=== PATIENT | female | born 1960 | race Caucasian/White ===

== ENCOUNTER 2020-10-08 12:26 | Outpatient (NON) | payer OTHER, SELFPAY ==
[2020-10-08 23:32] LABS: SARS-CoV-2 RNA PCR Negative
== END 2020-10-08 12:27 ==
LOC: ANHCOVIDDT 12:28
PROVIDERS: Physician Assistant; PCP Family Medicine; Visit Provider Family Medicine
DX: R06.02 Shortness of breath (principal); Z20.828 Contact with and (suspected) exposure to other viral communicable diseases
CPT/HCPCS: 87635; C9803; U0003

== ENCOUNTER → 2020-10-22 10:16 | Outpatient (CLI) | payer OTHER, SELFPAY ==
--- NOTE | ~2020-10-22 | XR_ITS ---
EXAMINATION: XR chest 2V DATE: 10/22/2020 10:40 INDICATION: Pneumonia, unspecified organism. TECHNIQUE: Frontal and lateral views of the chest were obtained. COMPARISON: Chest 2 views 06/22/2019, CT abdomen and pelvis 11/16/2018 FINDINGS: The chest demonstrates clear lungs without pneumonia, pleural effusion, or pneumothorax. Th e heart size is normal. IMPRESSION: 1. No acute cardiopulmonary disease. Reviewed, dictated and finalized at location A. R INSTALLER
== END ==
PROVIDERS: PCP Family Medicine; Visit Provider Nurse Practitioner Family
DX: J18.9 Pneumonia, unspecified organism (principal); R50.9 Fever, unspecified
CPT/HCPCS: 71046

== ENCOUNTER 2021-06-16 09:26 | Day surgery (SDC) | payer BC, SELFPAY ==
[2021-06-11 13:50] VITALS: BMI 26.5
[2021-06-16 09:46] VITALS: BP 149/74; PULSE 78; RESP 16; TEMP 36.1; O2SAT 97; BMI 25.8
--- NOTE | 2021-06-16 09:48 | WPDANESEPPF ---
Anes - Initial Pre Proc Eval Procedure: Operation Date: 06/16/21 11:45 Proposed Procedures p Esophagogastroduodenoscopy & Screening Colonoscopy - Demetrius Stevenson MD Date/Time: 06/16/21 09:48 Surgeon: Demetrius Stevenson MD Pre Op Diagnosis: family hx of colon ca, nausea, neoplasm Patient Data Age: 61 Gender: F Height: 1.6 m Weight: 66.1 kg Last Vital Signs Temp 36.1 C L 06/16/21 09:46 Pulse 78 06/16/21 09:46 Resp 16 06/16/21 09:46 BP 149/74 H 06/16/21 09:46 Pulse Ox 97 06/16/21 09:46 Allergies Allergy/AdvReac Type Severity Reaction Status Date / Time No Known Allergies Allergy Verified 06/16/21 09:37 Home Medications Medication Instructions Recorded Confirmed Type albuterol sulfate 90 mcg/actuation 1 inhalation INHALATION Q4H PRN 02/01/20 06/11/21 Rx aerosol inhaler #6.7 gm cetirizine [Zyrtec] 10 mg PO DAILY 07/11/20 06/11/21 History fluticasone propionate [Flonase 2 spray INTRANASAL DAILY 07/11/20 06/11/21 History Allergy Relief] guaifenesin [Mucinex] 600 mg PO QAM 07/11/20 06/11/21 History omeprazole magnesium [Prilosec] 10 mg PO DAILY 07/11/20 06/11/21 History triamterene-hydrochlorothiazid 1 cap PO DAILY 07/11/20 06/11/21 History aspirin 81 mg tablet,delayed 81 mg PO DAILY #90 tablet 10/10/20 06/11/21 Rx release gabapentin 100 mg capsule 200 mg PO QAM #180 cap 01/16/21 06/11/21 Rx gabapentin 300 mg capsule 300 mg PO .qhs #90 cap 01/16/21 06/11/21 Rx amlodipine 5 mg tablet 5 mg PO DAILY #90 tablet 01/20/21 06/11/21 Rx benzonatate 100 mg capsule 100 mg PO TID PRN #30 cap 02/24/21 06/11/21 Rx montelukast 10 mg tablet 10 mg PO DAILY #90 tablet 03/19/21 06/11/21 Rx umeclidinium 62.5 mcg-vilanterol 1 inh INHALATION DAILY #90 ea 03/27/21 06/11/21 Rx 25 mcg/actuation powdr for inhalation fluoxetine 20 mg capsule 20 mg PO DAILY #90 cap 04/07/21 06/11/21 Rx Patient hx anesthesia problems: none Family hx anesthesia problems: none PMFSH Past Medical History Medical History Tremor Wellness examination Family History Family History Father Hypertension Family history of heart disease in male family member before age 55 Mother Family history of Parkinson's disease Sibling Hypertension Family history of alcoholism Other Family history of arthritis Family history of gout Social History Social History Smoking packs per day: 1 Smoking cigarettes per day: 20.0 Years smoked: 15 Smoking pack-years: 15.00 Smoking status: Former smoker Tobacco type: cigarettes Second hand tobacco smoke exposure: No Smoking end date: 06/01/01 Alcohol intake: current Alcohol use details: social drinker Substance use: current Substance use type: marijuana Other substance usage details: SMOKES A LITTLE EVERY DAY Living arrangements: with family Gender identity (if verbalized by the patient): Female Spiritual care concerns: No Anes - Eval Final PreProcedure Day of Procedure 06/16/21 09:48 Patient weight: overweight Heart: regular rate and rhythm Lungs: clear to auscultation Airway: Mallampati scale class II Neurological: alert and oriented Last oral intake: >/= 8 hours ASA classification: III Emergent: no Anesthetic plan: proceed Anesthesia type and monitoring: general GIVS and standard monitoring Informed Consent: The patient's anesthetic plan and its attendant risks and benefits were discussed with the patient/family/POA. Questions were solicited and answers provided to the satisfaction of the patient/family/POA.
[2021-06-16] MEDS: LACTATED RINGERS 1,000 ML 150 ML IV CONT (10:05)
--- NOTE | 2021-06-16 10:17 | WPDGICN ---
Assessment and Plan Assessment and plan (1) Family history of colon cancer in father: Code(s): Z80.0 - Family history of malignant neoplasm of digestive organs Status: Acute Assessment and Plan: Patient's father has had colon cancer for this reason screening colonoscopy will be performed this report follows separately. Consider follow-up colonoscopy at 5 year intervals. Further recommendations will be given after endoscopy. (2) GERD (gastroesophageal reflux disease): Qualifiers: Esophagitis presence: without esophagitis Qualified Code(s): K21.9 - Gastro-esophageal reflux disease without esophagitis Code(s): K21.9 - Gastro-esophageal reflux disease without esophagitis Status: Acute Assessment and Plan: Patient has chronic GE reflux disease. Currently taking omeprazole 20mg p.o. daily. Plan is for EGD. this report follows separately. Further recommendations will be given after endoscopy. GI Consult Note Consult date/time: 06/16/21 10:17 HPI: Ashlie Donald is a 61 year old female With a history of GE reflux disease. Patient states heartburn has improved on taking Prilosec 20mg p.o. daily. Previously took ranitidine until it was taken off the market. Because of chronic GE reflux disease she presents today for EGD. Patient denies any bleeding. She denies any difficulty swallowing. Additionally it has been sometime since last colonoscopy. Family history is significant her father had colon cancer. Patient reports that her own for weight appetite bowel movements are normal. She denies any bleeding. She presents today for screening colonoscopy as well. Review of Systems Review of Systems: All systems reviewed & are unremarkable except as noted in HPI and below PMFSH Past Medical History Medical History Tremor Wellness examination Family History Family History Father Hypertension Family history of heart disease in male family member before age 55 Mother Family history of Parkinson's disease Sibling Hypertension Family history of alcoholism Other Family history of arthritis Family history of gout Social History Social History Smoking packs per day: 1 Smoking cigarettes per day: 20.0 Years smoked: 15 Smoking pack-years: 15.00 Smoking status: Former smoker Tobacco type: cigarettes Second hand tobacco smoke exposure: No Smoking end date: 06/01/01 Alcohol intake: current Alcohol use details: social drinker Substance use: current Substance use type: marijuana Other substance usage details: SMOKES A LITTLE EVERY DAY Living arrangements: with family Gender identity (if verbalized by the patient): Female Spiritual care concerns: No Meds Home Medications and Allergies Home Medications Medication Instructions Recorded Confirmed Type albuterol sulfate 90 mcg/actuation 1 inhalation INHALATION Q4H PRN 02/01/20 06/11/21 Rx aerosol inhaler #6.7 gm cetirizine [Zyrtec] 10 mg PO DAILY 07/11/20 06/11/21 History fluticasone propionate [Flonase 2 spray INTRANASAL DAILY 07/11/20 06/11/21 History Allergy Relief] guaifenesin [Mucinex] 600 mg PO QAM 07/11/20 06/11/21 History omeprazole magnesium [Prilosec] 10 mg PO DAILY 07/11/20 06/11/21 History triamterene-hydrochlorothiazid 1 cap PO DAILY 07/11/20 06/11/21 History aspirin 81 mg tablet,delayed 81 mg PO DAILY #90 tablet 10/10/20 06/11/21 Rx release gabapentin 100 mg capsule 200 mg PO QAM #180 cap 01/16/21 06/11/21 Rx gabapentin 300 mg capsule 300 mg PO .qhs #90 cap 01/16/21 06/11/21 Rx amlodipine 5 mg tablet 5 mg PO DAILY #90 tablet 01/20/21 06/11/21 Rx benzonatate 100 mg capsule 100 mg PO TID PRN #30 cap 02/24/21 06/11/21 Rx montelukast 10 mg tablet 10 mg PO DAILY #90 tablet 03/19/21 06/11/21 Rx umecli
[2021-06-16] MEDS: SIMETHICONE ORAL SUSPENSION 20 MG/0.3 ML 30 ML BOTTLE 0.6 ML IRRIGATION (10:55)
--- NOTE | 2021-06-16 10:58 | SUR.OPER ---
EGD START 1032, END 1034 COLONOSCOPY START 103, END 105
[2021-06-16 11:04] VITALS: BP 100/59; PULSE 75; RESP 21; O2SAT 94
[2021-06-16 11:14] VITALS: BP 118/69; PULSE 61; RESP 15; O2SAT 100
[2021-06-16 11:24] VITALS: BP 126/70; PULSE 60; RESP 18; O2SAT 98
== END 2021-06-16 11:33 | disposition home or self-care (01) ==
PROVIDERS: PCP Family Medicine; Visit Provider Internal Medicine Gastroenterology
PROC: 0DJ08ZZ Inspection of Upper Intestinal Tract, Via Natural or Artificial Opening Endoscopic (ICD-10-PCS; CPT 43235; principal; 2021-06-16 11:45)
DX: Z12.11 Encounter for screening for malignant neoplasm of colon (principal); Z80.0 Family history of malignant neoplasm of digestive organs; Q39.4 Esophageal web; K21.9 Gastro-esophageal reflux disease without esophagitis; K57.30 Diverticulosis of large intestine without perforation or abscess without bleeding; K64.8 Other hemorrhoids; R25.1 Tremor, unspecified; Z87.891 Personal history of nicotine dependence
CPT/HCPCS: 45378; 43235; 43450; J2704; J7120

== ENCOUNTER 2021-08-25 08:07 | Outpatient (CLI) | payer BC, SELFPAY ==
--- NOTE | 2021-08-25 11:36 | WPDPFTINT ---
PFT Procedure Performed PFT Procedure Performed Spirometry with Pre/Post Bronchodilator Plethysmography (Lung Vol) Diffusing Cap (DLCO) Flow Vol Loop PFT Interpretation Lung volumes were measured with the body plethysmography method. The lung volumes are unremarkable. Spirometry showed normal expiratory flow rates and a normal FEV1 to FVC ratio of 74%. Following administration of a bronchodilator, there was no significant increase in the expiratory flow rates. Lung diffusion capacity is mildly reduced at 64% predicted. The flow volume loop is unremarkable. Impression: Spirometry, lung volumes within the normal range. Mild reduction in lung diffusion capacity.
== END 2021-08-25 08:08 | disposition home or self-care (01) ==
PROVIDERS: PCP Family Medicine; Visit Provider Internal Medicine Pulmonary Disease
DX: R06.00 Dyspnea, unspecified (principal)
CPT/HCPCS: 94060; 94726; 94729

== ENCOUNTER 2021-10-21 11:09 | Outpatient (CLI) | payer BC, SELFPAY ==
--- NOTE | ~2021-10-21 | CT_ITS ---
EXAMINATION: CT diagnostic chest wo con DATE: 10/21/2021 11:32 INDICATION: Cough TECHNIQUE: Computed tomography (CT) of the chest was performed without intravenous contrast. Automate d exposure control and iterative reconstruction technique were employed. Exam dose: 142.30 mGy-cm to jesus exam DLP. COMPARISON: 10/22/2020 2 view chest FINDINGS: There are bilateral foramen of [place]dale[place] hernias containing fat and a small portion of the posterior aspect of the upper pole of each kidney. Normal heart size. No pericardial effusion. No thoracic aortic aneurysm there is some aortic valve ca lcification. No hilar or mediastinal mass lesion or lymphadenopathy. The tracheobronchial tree is patent without apparent endobronchial mass lesion or occlusion. There is minimal discoid atelectasis or scarring at the lung bases. No pulmonary infiltrate or consol idation or suspicious pulmonary mass lesion is detected. Small sliding hiatal hernia. Status post cholecystectomy. No adrenal mass lesion. No suspicious osteolytic or osteoblastic lesions are noted. IMPRESSION: Patent tracheobronchial tree Small sliding hiatal hernia Bilateral foramen of [place]dalek hernias containing fat and a small portion of the upper pole of each k idney Status post cholecystectomy Reviewed, dictated and finalized at Location A. Reviewed, dictated and finalized at location B. RLEADER IMPRESSION: Patent tracheobronchial tree Small sliding hiatal hernia Bilateral foramen of Bochdalek hernias containing fat and a small portion of th e upper pole of each kidney Status post cholecystectomy
== END 2021-10-21 11:10 | disposition home or self-care (01) ==
PROVIDERS: PCP Family Medicine; Visit Provider Internal Medicine Pulmonary Disease
DX: J45.909 Unspecified asthma, uncomplicated (principal); R05.9 Cough, unspecified; K44.9 Diaphragmatic hernia without obstruction or gangrene; Z90.49 Acquired absence of other specified parts of digestive tract
CPT/HCPCS: 71250

== ENCOUNTER 2021-12-23 14:25 | Outpatient (CLI) | payer BC, SELFPAY ==
--- NOTE | ~2021-12-23 | MM_ITS ---
EXAMINATION: MM screening [facility] BI w mike HISTORY: Screening mammogram TECHNIQUE: Craniocaudal and mediolateral oblique 3-D tomosynthesis images were obtained and synthetic 2-D images were generated. CAD analysis was submitted and interpreted. COMPARISON: 11/09/2018, 07/23/2017, 06/17/2016 bilateral digital screening mammogram examinations BREAST PARENCHYMAL COMPOSITION: There are scattered areas of fibroglandular density. FINDINGS: There is no evidence of suspicious mass, calcification, or architectural distortion to sugg est malignancy in either breast. There has been no suspicious interval change. IMPRESSION: 1. No mammographic evidence of malignancy. 2. Recommend routine screening mammography in one year. BI-RADS Category 1: Negative Reviewed, dictated and finalized at location A. URCE COORDINATOR
== END 2021-12-23 14:26 | disposition home or self-care (01) ==
LOC: ANHIMG 14:26
PROVIDERS: PCP Family Medicine; Visit Provider Physician Assistant
DX: Z12.31 Encounter for screening mammogram for malignant neoplasm of breast (principal)
CPT/HCPCS: 77063; 77067

== ENCOUNTER 2022-01-14 13:11 | Emergency (ER) | payer BC, SELFPAY ==
[2022-01-14] VITALS (38 sets, daily range): BP systolic 102–137; BP diastolic 46–110; PULSE 57–82; RESP 11–24; TEMP 36.4–37; O2SAT 93–100
--- NOTE | ~2022-01-14 | XR_ITS ---
EXAMINATION: XR foot LT min 3V DATE: 01/14/2022 13:56 INDICATION: Left foot injury. TECHNIQUE: 4 views of left foot were obtained. COMPARISON: Left ankle radiographs 01/14/2022 FINDINGS: Again seen is a trimalleolar ankle fracture dislocation with posterior dislocation of talus respect to the main component of tibial plafond. There are changes of bunionectomy with screws in fi rst metatarsal and first proximal phalanx. There are screws in the heads of second and third metatars als. There is moderate osteoarthritis of first metatarsophalangeal joint and mild osteoarthritis of s ome of the interphalangeal joints. There is an enthesophyte at plantar aspect of calcaneal tuberosity . IMPRESSION: 1. Trimalleolar ankle fracture dislocation. 2. Polyarticular osteoarthritis. Reviewed, dictated and finalized at location A.
--- NOTE | ~2022-01-14 | XR_ITS ---
EXAMINATION: XR ankle LT min 3V DATE: 01/14/2022 13:44 INDICATION: Left ankle injury. TECHNIQUE: 4 views of left ankle were obtained. COMPARISON: None. FINDINGS: There is an oblique fracture of distal fibula with medial aspect of the fracture line 1.7 c m proximal to the level of the tibial plafond. The distal fracture fragment demonstrates 34 degrees p osterior angulation. There is a displaced fracture of posterior malleolus. There is posterior disloca tion of talar dome with respect to the main component of tibial plafond. There is an oblique fracture of medial malleolus. The distal fracture fragment demonstrates posterior angulation. There is mild o steoarthritis of talonavicular joint. There is screw fixation of first metatarsal, first proximal pha lanx, and second and third metatarsals. IMPRESSION: 1. Trimalleolar ankle fracture dislocation. Reviewed, dictated and finalized at location A.
--- NOTE | ~2022-01-14 | XR_ITS ---
EXAMINATION: XR ankle LT 2V DATE: 01/14/2022 15:21 INDICATION: Left ankle fracture status post reduction. TECHNIQUE: 2 views of left ankle were obtained. COMPARISON: Left ankle radiographs 01/14/2022 FINDINGS: There is an oblique fracture of distal fibula with medial aspect of the fracture line 12 mm proximal to the level of the tibial plafond. The distal fracture fragment demonstrates 2 mm posterol ateral displacement. There is a comminuted fracture of medial malleolus. The main distal fracture fra gment demonstrates 2 mm medial displacement. There is no visible fracture of the posterior malleolus. There is mild osteoarthritis of first talonavicular joint. There is screw fixation of first metatars al, first proximal phalanx, and second and third metatarsals. There are enthesophytes at the posterio r and plantar aspects of calcaneal tuberosity. Cast material is noted. IMPRESSION: 1. Bimalleolar ankle fracture with improvement in alignment. Reviewed, dictated and finalized at location A.
--- NOTE | 2022-01-14 13:57 | ED.LOWEXIN ---
HPI - Extremity Injury (Lower) General Chief Complaint: Extremity Injury, Lower <Sunday Bishop APRN - Last Filed: 01/14/22 16:37> Stated Complaint: left ankle injury <Sunday Bishop APRN - Last Filed: 01/14/22 16:37> Time Seen by Provider: 01/14/22 13:26 <Sunday Bishop CASE MANAGEMENT ASSISTANT - Last Filed: 01/14/22 16:37> History of Present Illness HPI Narrative: 61-year-old female presents the emergency room complaints of left ankle pain. Patient states that she slipped and fell down a couple of stairs prior to arrival. Patient noted an obvious bony abnormality to her left ankle. Unable to ambulate. <Sunday Bishop APRN - Last Filed: 01/14/22 16:37> Related Data Home Medications: Home Medications Medication Instructions Recorded Confirmed cetirizine [Zyrtec] 10 mg PO DAILY 07/11/20 01/01/22 fluticasone propionate [Flonase 2 spray INTRANASAL DAILY 07/11/20 01/01/22 Allergy Relief] guaifenesin [Mucinex] 600 mg PO QAM 07/11/20 01/01/22 denosumab 60 mg/mL subcutaneous 60 mg SUBCUT [id number] 07/29/21 01/01/22 syringe <Sunday Bishop, CASE MANAGEMENT ASSISTANT - Last Filed: 01/14/22 16:37> Allergies/Adverse Reactions: Allergies Allergy/AdvReac Type Severity Reaction Status Date / Time No Known Allergies Allergy Verified 01/14/22 13:20 <Sunday Bishop APRN - Last Filed: 01/14/22 16:37> Review of Systems Review of Systems: CONSTITUTIONAL: Denies fever, chills, or sweats. EYES: Denies visual changes, redness, or discharge. ENT: Denies rhinorrhea, congestion, sore throat, or otalgia. CARDIOVASCULAR: Denies chest pain, palpitations, or edema. RESPIRATORY: Denies cough or dyspnea. GASTROINTESTINAL: Denies abdominal pain, nausea, vomiting, or diarrhea. GENITOURINARY: Denies dysuria or hematuria. SKIN: Denies rash or itching. MUSCULOSKELETAL: Reports left ankle pain NEUROLOGIC: Denies headache, numbness, dizziness, or weakness. PSYCHIATRIC: Denies anxiety or depression. <Sunday Bishop APRN - Last Filed: 01/14/22 16:37> PMFSH Past Medical History Medical History: Medical History Tremor Wellness examination <Sunday Bishop APRN - Last Filed: 01/14/22 16:37> Family History Family History: Family History Father Hypertension Family history of heart disease in male family member before age 55 Mother Family history of Parkinson's disease Sibling Hypertension Family history of alcoholism Other Family history of arthritis Family history of gout <Sunday Bishop APRN - Last Filed: 01/14/22 16:37> Social History Social History: Social History Smoking packs per day: 1 Smoking cigarettes per day: 20.0 Years smoked: 20 Smoking pack-years: 20.00 Smoking status: Former smoker Tobacco type: cigarettes Second hand tobacco smoke exposure: No Smoking end date: 06/01/01 Alcohol intake: current Alcohol use details: social drinker Substance use: current Substance use type: marijuana Other substance usage details: SMOKES A LITTLE EVERY DAY Gender identity (if verbalized by the patient): Female Sexual Orientation (if Verbalized by the Patient): Straight or Heterosexual Spiritual care concerns: No <Sunday Bishop APRN - Last Filed: 01/14/22 16:37> Exam Narrative: GENERAL: Well-appearing, well-nourished, and in no acute distress. HEAD: Normocephalic, atraumatic. EYES: PERRLA and EOMI. ENT: Nares clear, no rhinorrhea or epistaxis. Mucous membranes moist. NECK: Supple. No adenopathy or masses. No carotid bruits or JVD CHEST: Clear to auscultation. No respiratory distress. No wheezes rales or rhonchi HEART: Regular rate and rhythm. No murmur heard. Normal peripheral pulses. ABDOMEN: Soft, nontender, nondistended, normal active bowel sounds. EXTREMITIES: Normal range of motion.
[2022-01-14] MEDS: MORPHINE SULFATE (*CRX) 4 MG/ML INJ IV PUSH (14:26)
[2022-01-14] MEDS: ONDANSETRON INJ 4 MG/2 ML VIAL IV PUSH (14:26)
[2022-01-14 14:41] LABS: Basophils Absolute Auto 0.1 K/mm3 (0.0-0.1); Basophils Percent Auto 0.6 % (0.2-1.2); Eosinophils Absolute Auto 0.2 K/mm3 (0-0.3); Eosinophils Percent Auto 2.5 % (0-4.4); Hematocrit 40.1 % (37.0-47.0); Hemoglobin 13.3 g/dL (12.0-15.0); Immature Granulocyte Absolute 0.03 K/mm3 (0.00-0.031); Immature Granulocyte Percent A 0.3 % (0-0.5); Lymphocytes Absolute Auto 2.05 K/mm3 (0.9-3.2); Mean Corpuscular HGB Conc 33.2 g/dl (32-36); Mean Corpuscular Hemoglobin 30.2 pg (26-34); Mean Corpuscular Volume 90.9 fl (80-100); Mean Platelet Volume 9.2 fl (7.4-10.4); Monocytes Absolute Auto 0.7 K/mm3 (0.1-0.6); Monocytes Percent Auto 8.2 % (2.6-8.5); Neutrophils Absolute Auto 5.9 K/mm3 (1.3-6.7); Neutrophils Percent Auto 65.4 % (45.5-73.1); Platelet Count Result 342 k/mm3 (150-375); Red Blood Count 4.41 M/mm3 (4.2-5.4); Red Cell Distribution Width 13.5 % (11.5-14.5); White Blood Count 8.9 K/mm3 (4.5-10.0)
[2022-01-14 14:50] LABS: Alanine Aminotransferase 16 U/L (4-35); Albumin Level 4.2 g/dL (3.5-5.1); Alkaline Phosphatase 105 U/L (38-126); Anion Gap 4 mmol/L (8-16); Aspartate Amino Transferase 29 U/L (14-36); Bilirubin,Total 0.5 mg/dL (0.2-1.3); Blood Urea Nitrogen 20 mg/dL (7-17); Calcium 9.8 mg/dL (8.4-10.2); Carbon Dioxide 29 mmol/L (22-30); Chloride 105 mmol/L (98-107); Estimated CRCL calculation 59 ml/min; Estimated Glomerular Filt Rate > 60; Glucose 100 mg/dL (65-110); INR 0.9; Partial Thromboplastin Time 24.3 SECONDS (22.3-36.8); Potassium 4.1 mmol/L (3.4-5.0); Prothrombin Time 11.9 Seconds (11.1-14.7); Sodium 138 mmol/L (137-145)
--- NOTE | 2022-01-14 15:05 | PC.NURSE ---
[address] Emma Portillo FOURTH MATE at bedside all equipment at bedside 1506 Dr carter adminstered 60mg of propofol 1507 Dr Carter gave 20mg of propofol. 1510 Pt O2 beggining to dropped which reequired bagging for approx 1 minute 1512 Pt procedure finished Pt beggining to awake from sedation.
[2022-01-14] MEDS: PROPOFOL IV EMULSION 200 MG/20 ML VIAL (15:06)
[2022-01-14] MEDS: SODIUM CHLORIDE 0.9% IV 1,000 ML 999 ML (15:31)
--- NOTE | 2022-01-14 18:38 | PC.NURSE ---
called kapil for travis 1836, eta now 1999.
== END 2022-01-14 19:36 | disposition short-term general hospital (02) ==
PROVIDERS: Emergency Provider Nurse Practitioner Family; PCP Family Medicine
DX: S82.842A Displaced bimalleolar fracture of left lower leg, initial encounter for closed fracture (principal); W10.9XXA Fall (on) (from) unspecified stairs and steps, initial encounter
CPT/HCPCS: 27818; 36415; 73600; 73610; 73630; 80053; 85025; 85610; 85730; 86850; 86900; 86901; 96374; 96375; 99285; J2270; J2405; J2704; J7030

== ENCOUNTER 2022-01-30 09:57 | Outpatient (CLI) | payer BC, SELFPAY ==
--- NOTE | ~2022-01-30 | DEXA_ITS ---
Bone Density Report Name: DEBBI LIRIANO Age: 61 Sex: Female Ethnicity: White Date of : 1960 Indication: osteopenia; monitoring treatment; height loss; inflammatory bowel disease; prior fracture; asthma or emphysema; postmenopausal Referring Provider: NIKI PALACIO Study: Bone densitometry was performed. Exam Date: January 30, 2022 Accession number: [id number] Bone Density: Region BMD T-score Z-score Classification AP Spine (L1, L2) 0.856 -1.1 0.4 Osteopenia Femoral Neck (Left) 0.538 -2.8 -1.4 Osteoporosis Total Hip (Left) 0.740 -1.7 -0.5 Osteopenia Total Hip Bilateral Avg 0.752 -1.6 -0.4 Osteopenia Femoral Neck (Right) 0.571 -2.5 -1.1 Osteoporosis Total Hip (Right) 0.763 -1.5 -0.3 Osteopenia World Health Organization criteria for BMD impression classify patients as: Normal (T-score at or above -1.0), Osteopenia (T-score between -1.0 and -2.5), or Osteoporosis (T-score at or below -2.5). 10-year Fracture Risk: FRAX not reported because: Some T-score for Spine Total or Hip Total or Femoral Neck at or below -2.5 Treated for osteoporosis Previous Exams: Region Exam Age BMD T-score BMD Change BMD Change Date g/cm2 vs Baseline vs Previous AP Spine(L1, L2) 01/30/2022 61 0.856 -1.1 0.166(24.0%)# 0.031(3.8%)# 11/08/2013 53 0.825 -1.4 0.134(19.4%)# 0.077(10.2%)# 02/23/2011 50 0.748 -2.1 0.058(8.3%)* 0.058(8.3%)* 10/16/2008 48 0.690 -2.6 Total Hip(Left) 01/30/2022 61 0.740 -1.7 0.000(0.0%)# -0.057(-7.1%)# 11/08/2013 53 0.797 -1.2 0.057(7.7%)# 0.025(3.2%)# 02/23/2011 50 0.772 -1.4 0.032(4.4%)* 0.032(4.4%)* 10/16/2008 48 0.740 -1.7 Total Hip(Right) 01/30/2022 61 0.763 -1.5 0.025(3.4%)# -0.049(-6.1%)# 11/08/2013 53 0.812 -1.1 0.075(10.1%)# 0.019(2.4%)# 02/23/2011 50 0.793 -1.2 0.056(7.6%)* 0.056(7.6%)* 10/16/2008 48 0.737 -1.7 *Denotes significance at 95% confidence level, LSC for AP Spine = 0.022 g/cm2, LSC for Total Hip = 0.027 g/cm2 Clinical Information Provided by Patient: Has had a low trauma fracture Is being treated for osteoporosis Has used the following medications: Prolia (i.e. denosumab), Vitamin D, Calcium Has the following medical conditions: Asthma or Emphysema, Inflammatory bowel diseases Patient maximum height was 63.5 Menopause Age: 51 No regular weight bearing exercise Drinks caffeinated beverages Onset of menses at age 12 Number of children 1
== END 2022-01-30 09:58 | disposition home or self-care (01) ==
LOC: ANHIMG 09:58
PROVIDERS: PCP Family Medicine; Visit Provider Physician Assistant
DX: M81.0 Age-related osteoporosis without current pathological fracture (principal); M85.88 Other specified disorders of bone density and structure, other site; M85.852 Other specified disorders of bone density and structure, left thigh; M85.851 Other specified disorders of bone density and structure, right thigh
CPT/HCPCS: 77080

== ENCOUNTER 2022-12-07 12:44 | Outpatient (CLI) | payer BC, SELFPAY ==
[2022-12-07 14:53] LABS: Influenza A QL RT-PCR Negative (Negative); Influenza B QL RT-PCR Negative (Negative); SARS-CoV-2 RNA PCR Negative
== END 2022-12-07 12:45 | disposition home or self-care (01) ==
LOC: ANHLAB 12:45
PROVIDERS: PCP Family Medicine; Visit Provider Physician Assistant
DX: R50.9 Fever, unspecified (principal); Z20.822 Contact with and (suspected) exposure to COVID-19
CPT/HCPCS: 87636

== ENCOUNTER → 2023-01-11 12:44 | Outpatient (CLI) | payer BC, SELFPAY ==
--- NOTE | ~2023-01-11 | XR_ITS ---
EXAMINATION: XR chest 2V Exam Date/Time: 01/11/2023 12:49 CDT HISTORY: Unspecified asthma, uncomplicated; low O2 sat Comparison: 10/22/2020. RESULT: Lines, tubes, and devices: Cholecystectomy clips. Lungs and pleura: Prominent pericardial fat pad. Chronic posterior costophrenic angle blunting. Othe rwise clear. Cardiomediastinal silhouette: Stable. Other: No acute osseous or upper abdominal finding. IMPRESSION: No acute cardiopulmonary process. Reviewed, dictated and finalized at location K.
== END ==
PROVIDERS: PCP Family Medicine; Visit Provider Physician Assistant
DX: J45.909 Unspecified asthma, uncomplicated (principal)
CPT/HCPCS: 71046

== ENCOUNTER → 2023-03-24 12:49 | Outpatient (CLI) | payer BC, SELFPAY ==
--- NOTE | ~2023-03-24 | MM_ITS ---
EXAMINATION: MM screening [facility] BI w mike HISTORY: Screening mammogram TECHNIQUE: Craniocaudal and mediolateral oblique 3-D tomosynthesis images were obtained and synthetic 2-D images were generated. CAD analysis was submitted and interpreted. COMPARISON: 12/23/2021, 11/19/2018, 07/23/2017 BREAST PARENCHYMAL COMPOSITION: There are scattered areas of fibroglandular density. FINDINGS: No suspicious mass, calcification, or architectural distortion are identified in either lizabeth ast to suggest malignancy. There has been no suspicious interval change. IMPRESSION: 1. No mammographic evidence of malignancy. 2. Recommend routine screening mammography in one year. BI-RADS Category 1: Negative Reviewed, dictated and finalized at location A.
== END ==
PROVIDERS: PCP Family Medicine; Visit Provider Family Medicine
DX: Z12.31 Encounter for screening mammogram for malignant neoplasm of breast (principal)
CPT/HCPCS: 77063; 77067

== ENCOUNTER 2023-04-09 10:24 | Outpatient (CLI) | payer BC, SELFPAY ==
--- NOTE | ~2023-04-09 | CT_ITS ---
CT Scan of the Chest without Contrast: Clinical Indication: Asthma, gurgling in throat Technique: Contiguous sections were acquired throughout the chest without intravenous contrast. Dose reduction technique was used on this scan by utilizing automated exposure control and iterative recon struction technique. The dose-length product (DLP) was 197.82 mGy-cm. COMPARISON: 10/21/2021 Findings: There is no evidence of any significant mediastinal, hilar or axillary lymphadenopathy. The mediastin al soft tissues appear normal. Small hiatal hernia noted. There is no evidence of pleural or pericardial effusion. The lungs are clear, aside from mild dependent atelectatic changes or scarring. Images through the upper abdomen reveal no abnormalities. Impression: Mild bibasilar pulmonary scarring/atelectasis, otherwise clear lungs. Small hiatal hernia. Reviewed, dictated and finalized at location . Impression: Mild bibasilar pulmonary scarring/atelectasis, otherwise clear lungs. Small hiatal hernia.
== END 2023-04-09 10:25 | disposition home or self-care (01) ==
PROVIDERS: PCP Family Medicine; Visit Provider Physician Assistant
DX: M81.0 Age-related osteoporosis without current pathological fracture (principal); J45.909 Unspecified asthma, uncomplicated; K44.9 Diaphragmatic hernia without obstruction or gangrene; R91.8 Other nonspecific abnormal finding of lung field
CPT/HCPCS: 71250

== ENCOUNTER → 2023-05-17 16:29 | Outpatient (CLI) | payer MEDICARE, OTHER, SELFPAY ==
--- NOTE | ~2023-05-17 | XR_ITS ---
XR finger 5th RT min 2V DATE: 05/17/2023 17:04 INDICATION: Fifth digit pain TECHNIQUE: 4 views COMPARISON: None FINDINGS: Proximal interphalangeal joint extension and distal interphalangeal joint flexion deformiti es are noted. No fracture or dislocation, periosteal reaction or bone destruction. No radiopaque soft tissue foreign body or soft tissue calcification or subcutaneous emphysema. 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 Osteopenia. IMPRESSION: Proximal interphalangeal joint extension and distal interphalangeal joint flexion deformi ties Reviewed, dictated and finalized at location L. IMPRESSION: Proximal interphalangeal joint extension and distal interphalangeal joint flexion deformities
== END ==
PROVIDERS: PCP Physician Assistant; Visit Provider Physician Assistant
DX: M79.644 Pain in right finger(s) (principal)
CPT/HCPCS: 73140

== ENCOUNTER 2023-08-13 14:51 | Outpatient (CLI) | payer MEDICARE, OTHER, SELFPAY ==
[2023-08-13 15:44] LABS: Influenza A QL RT-PCR Negative (Negative); Influenza B QL RT-PCR Negative (Negative); SARS-CoV-2 RNA PCR Negative (Negative)
== END 2023-08-13 14:52 | disposition home or self-care (01) ==
LOC: ANHLAB 14:53
PROVIDERS: PCP Family Medicine; Visit Provider Physician Assistant
DX: J18.9 Pneumonia, unspecified organism (principal); R05.8 Other specified cough
CPT/HCPCS: 87636

== ENCOUNTER 2023-12-02 07:59 | Outpatient (CLI) | payer MEDICARE, SELFPAY ==
--- NOTE | 2023-12-02 12:12 | P.PCNPFT_ITS ---
PFT Procedure Performed PFT Procedure Performed Spirometry with Pre/Post Bronchodilator Plethysmography (Lung Vol) Diffusing Cap (DLCO) Flow Vol Loop PFT Interpretation This is a pulmonary function test with pre and post-bronchodilator spirometry, plethysmography and diffusing capacity. The test was performed and results interpreted in accordance with the 2019 and 2005 ATS/ERS Task Force guidelines respectively using the Global Lung Function Initiative-2012 reference equations. Patient demonstrated good effort and cooperation. Reproducibility criteria were met. The quality of the pre bronchodilator spirometry maneuver was Grade A and post bronchodilator spirometry maneuver was Grade A. Findings: Spirometry: There is decreased maximal expiratory airflow at all lung volumes with concave expiratory flow tracing. The contour the inspiratory flow tracing is normal. The pre bronchodilator FVC is 3.60 L, 129% predicted. The pre bronchodilator FEV1 is 2.10 L, 96% predicted. The pre bronchodilator FEV1: FVC ratio is 58%. The post bronchodilator FVC is 3.70 L, representing a 3% increase. The post bronchodilator FEV1 is 2.22 L, representing a 6% increase. The post bronchodilator FEV1: FVC ratio 60%. Plethysmography: The total lung capacity is 5.64 L, 119% predicted. The functional residual capacity is 2.31 L, 86% predicted. The residual volume is 1.88 L, 95% predicted. Diffusing capacity: The diffusing capacity unadjusted for hemoglobin and carboxyhemoglobin is 15.3, 76% predicted. The diffusing capacity adjusted for alveolar volume is 3.26, 73% predicted. In comparison to previous pulmonary function testing on 08/25/2021 the expiratory flow tracing is normal currently and no longer has a mid expiratory pause or knee pattern. The post bronchodilator FVC is unchanged from 3.96 L to 3.70 L. The post bronchodilator FEV1 has decreased from 2.87 L to 2.22 L. T he total lung capacity is unchanged from 5.42 L to 5.64 L. The functional residual capacity is unchanged from 2.44 L to 2.31 L. The residual volume is unchanged from 1.60 L to 1.88 L. The diffusing capacity unadjusted for hemoglobin and carboxyhemoglobin is unchanged from 15.9 to 15.3. The diffusing capacity adjusted for alveolar volume is unchanged from 3.27 to 3.26. Impression: There is a mild obstructive abnormality with a normal FEV1. There is no significant improvement after inhaling a single dose of albuterol. The lung volumes are normal. The diffusing capacity is normal. In comparison to prior pulmonary function testing on 08/25/2021 the expiratory flow tracing is now normal and does not demonstrate a knee pattern. There has been a greater than anticipated time dependent decrease in the FEV1 with no significant change in the FVC, total lung capacity, functional residual capacity, residual volume or diffusing capacity. Clinical correlation is recommended.
== END 2023-12-02 08:00 | disposition home or self-care (01) ==
PROVIDERS: PCP Family Medicine; Visit Provider Physician Assistant
DX: J45.909 Unspecified asthma, uncomplicated (principal)
CPT/HCPCS: 94060; 94726; 94729

== ENCOUNTER 2023-12-11 11:28 | Outpatient (CLI) | payer MEDICARE, SELFPAY ==
[2023-12-11 12:07] LABS: Appearance Urine Clear (Clear); Bacteria Urine None Seen /hpf; Bilirubin Urine Negative (Negative); Blood Urine Negative (Negative); Color Urine Dark Yellow (Yellow); Glucose Urine UA Negative (Negative); Ketones Urine Trace mg/dL (Negative); Leukocyte Esterase Ur 1+ LEU/UL (NEGATIVE); Nitrate Urine Negative (Negative); Non Pathogenic Casts 0-2; Protein Urine Trace mg/dL (Negative); RBC Urine 0-2 /hpf (0-2); Specific Grav Ur 1.024 (1.001-1.035); Squamous Epithelial Cell Urine None seen /hpf (Few); WBC Urine 21-50 /hpf (0-3); pH Urine 6.5 (5.0-9.0)
[2023-12-11 12:09] LABS: Add Urine Microscopic? YES
== END 2023-12-11 11:29 | disposition home or self-care (01) ==
PROVIDERS: PCP Family Medicine; Visit Provider Physician Assistant Medical
DX: R30.0 Dysuria (principal); R35.0 Frequency of micturition
CPT/HCPCS: 81001; 87086

== ENCOUNTER 2024-01-27 08:05 | Outpatient (CLI) | payer MEDICARE, SELFPAY ==
--- NOTE | 2024-01-27 08:14 | ECHO_ITS ---
Patient Info Name: Ashlie Donald Age: 63 years : 1960 Gender: Female Ht: 63 in Wt: 134 lbs BSA: 1.65 m2 HR: 57 bpm BP: 146 / 74 mmHg Technical Quality: Good Exam Date: 01/27/2024 8:27 AM Exam Location: Echo Lab Patient Status: Outpatient Admit Date: 01/27/2024 Staff Ordering Physician: Esvin Valle MD Ballistician: Amber Dawn RDCS Attending Provider: Esvni Valle MD Referring Physician: Leonard HERNANDEZ; Exam Type: CA echo doppler color flow Study Info Indications R06.00 - Dyspnea, unspecified Complete two-dimensional, color flow and Doppler transthoracic echocardiogram is performed. Summary 1. Complete two-dimensional, color flow and Doppler transthoracic echocardiogram is performed. 2. Left ventricular chamber dimension is normal. 3. Left ventricular systolic function is normal, estimated at 60-65%. 4. The left ventricular diastolic function is grade I diastolic dysfunction. 5. E/e' 9 is minimally elevated. 6. There is mild aortic valve sclerosis. 7. There is trace mitral valve regurgitation. 8. There is mild tricuspid valve regurgitation. 9. No pulmonary hypertension, estimated pulmonary arterial systolic pressure is 24 mmHg. Left Ventricle E/e' 9 is minimally elevated. Left ventricular chamber dimension is normal. Left ventricular systolic function is normal, estimated at 60-65%. The left ventricular diastolic function is grade I diastolic dysfunction. Right Ventricle Right ventricular chamber dimension is normal. Right ventricular systolic function is normal. Left Atria Left atrial chamber dimension is normal. Right Atria Right atrial chamber dimension is normal. Aortic Valve The aortic valve is trileaflet. There is mild aortic valve sclerosis. There is no aortic valve stenosis. There is no aortic valve regurgitation. Pulmonic Valve There is no pulmonic regurgitation. Mitral Valve There is no mitral valve stenosis. There is trace mitral valve regurgitation. Tricuspid Valve There is mild tricuspid valve regurgitation. No pulmonary hypertension, estimated pulmonary arterial systolic pressure is 24 mmHg. Pericardium/Pleural There is no pericardial effusion. Inferior Vena Cava Normal inferior vena cava with >50% collapse upon inspiration consistent with normal right atrial pressure, 5 mmHg. Aorta The aortic root size at the sinus of Valsalva is normal. Left Ventricular Outflow Tract Name Value Normal LVOT 2D LVOT Diameter 2.0 cm LVOT Doppler LVOT Peak Gradient 4 mmHg LVOT Mean Gradient 2 mmHg LVOT VTI 21 cm LVOT VTI/AV VTI Ratio 0.6 LVOT Stroke Volume 68 ml LVOT CO 3.6 l/min LVOT CI 2.2 l/min/m2 Pulmonic Valve Name Value Normal RVOT Doppler RVOT Peak Gradient 2
== END 2024-01-27 08:06 | disposition home or self-care (01) ==
LOC: ANHCARD 08:07
PROVIDERS: PCP Family Medicine; Visit Provider Internal Medicine Pulmonary Disease
DX: R06.09 Other forms of dyspnea (principal); I36.1 Nonrheumatic tricuspid (valve) insufficiency
CPT/HCPCS: 93306

== ENCOUNTER 2024-02-18 15:27 | Outpatient (CLI) | payer MEDICARE, SELFPAY ==
--- NOTE | ~2024-02-18 | XR_ITS ---
EXAMINATION: XR chest 2V 02/18/2024 15:45 INDICATION: Cough with shortness of breath PROCEDURE: 2 view chest COMPARISON: Chest x-ray report dated 01/11/2023 FINDINGS: There is left lower lobe pneumonia. No pleural effusion. The cardiomediastinal silhouette i s within normal limits. There are no pleural effusions. There is no pneumothorax suspected. IMPRESSION: 1: Left lower lobe pneumonia. Reviewed, dictated and finalized at location B.
== END 2024-02-18 15:28 | disposition home or self-care (01) ==
LOC: ANHIMG 15:30
PROVIDERS: PCP Family Medicine; Visit Provider Physician Assistant
DX: R05.9 Cough, unspecified (principal); R06.02 Shortness of breath; I10 Essential (primary) hypertension; R06.2 Wheezing; J18.9 Pneumonia, unspecified organism
CPT/HCPCS: 71046

== ENCOUNTER 2024-03-01 12:16 | Outpatient (CLI) | payer MEDICARE, SELFPAY ==
--- NOTE | ~2024-03-01 | DEXA_ITS ---
Bone Density Report Name: DEBBI LIRIANO Age: 63 Sex: Female Ethnicity: White Date of : 1960 Indication: osteopenia; monitoring treatment; height loss; asthma or emphysema; Referring Provider: JAKY PEREZ Study: Bone densitometry was performed. Exam Date: March 01, 2024 Accession number: [id number] Bone Density: Region BMD T-score Z-score Classification AP Spine(L1, L2) 0.913 -0.6 1.1 Normal Femoral Neck (Left) 0.522 -2.9 -1.4 Osteoporosis Total Hip (Left) 0.742 -1.6 -0.4 Osteopenia Femoral Neck (Right) 0.534 -2.8 -1.3 Osteoporosis Total Hip (Right) 0.787 -1.3 0.0 Osteopenia Total Hip Mean 0.764 -1.5 -0.2 Osteopenia World Health Organization criteria for BMD impression classify patients as: Normal (T-score at or above -1.0), Osteopenia (T-score between -1.0 and -2.5), or Osteoporosis (T-score at or below -2.5). 10-year Fracture Risk: FRAX not reported because: Some T-score for Spine Total or Hip Total or Femoral Neck at or below -2.5 Treated for osteoporosis Previous Exams: Region Exam Age BMD T-score BMD Change BMD Change Date g/cm2 vs Baseline vs Previous AP Spine (L1-L2) 03/01/2024 63 0.913 -0.6 0.057 (6.7%)* 0.057 (6.7%)* 01/30/2022 61 0.856 -1.1 Total Hip(Left) 03/01/2024 63 0.742 -1.6 0.002 (0.3%) 0.002 (0.3%) 01/30/2022 61 0.740 -1.7 Total Hip(Right) 03/01/2024 63 0.787 -1.3 0.024 (3.1%) 0.024 (3.1%) 01/30/2022 61 0.763 -1.5 *Denotes significance at 95% confidence level, LSC for AP Spine = 0.022 g/cm2, LSC for Total Hip = 0.027 g/cm2 Clinical Information Provided by Patient: Is being treated for osteoporosis Has used the following medications: Prolia (i.e. denosumab), Vitamin D, Calcium Has the following medical conditions: Asthma or Emphysema Patient maximum height was 63.5 Menopause Age: 51 Drinks caffeinated beverages Onset of menses at age 12 Number of children 1 Impression: The patient has osteoporosis, based on the Left Femoral Neck T-score. No significant bone loss was observed. Discussion: PATIENT UNDER TREATMENT WITH NO SIGNIFICANT BMD LOSS SINCE LAST EXAM. In an untreated patient, BMD typically declines with age. A lack of decline or gain is usually a sign that treatment is efficacious and fracture risk is reduced. It is important to ask patients whether they are taking their medications and to encourage continued and appropriate compliance with their osteoporosis
== END 2024-03-01 12:17 | disposition home or self-care (01) ==
LOC: ANHIMG 12:18
PROVIDERS: PCP Family Medicine; Visit Provider Physician Assistant Medical
DX: M81.0 Age-related osteoporosis without current pathological fracture (principal); M85.852 Other specified disorders of bone density and structure, left thigh; M85.851 Other specified disorders of bone density and structure, right thigh
CPT/HCPCS: 77080

== ENCOUNTER 2024-05-02 16:52 | Outpatient (CLI) | payer MEDICARE, SELFPAY ==
--- NOTE | ~2024-05-02 | XR_ITS ---
EXAMINATION: XR chest 2V Exam Date/Time: 05/02/2024 17:20 CDT HISTORY: R05 - Cough Comparison: 04/09/2023. RESULT: Lines, tubes, and devices: Cholecystectomy clips. Lungs and pleura: Mild peripheral reticular opacities, likely representing mild chronic interstitial disease of UIP. Patchy subsegmental bibasilar airspace disease, worse in the left lung base. Cardiomediastinal silhouette: Stable. Other: No acute osseous or upper abdominal finding. IMPRESSION: Chronic versus recurrent subsegmental bibasilar atelectasis/consolidation. Reviewed, dictated and finalized at location K.
== END 2024-05-02 16:53 | disposition home or self-care (01) ==
PROVIDERS: PCP Family Medicine; Visit Provider Physician Assistant
DX: J45.909 Unspecified asthma, uncomplicated (principal)
CPT/HCPCS: 71046

== ENCOUNTER 2024-05-18 15:31 | Outpatient (CLI) | payer MEDICARE, SELFPAY ==
--- NOTE | ~2024-05-18 | MM_ITS ---
EXAMINATION: MM screening jairo BI w mike HISTORY: Screening TECHNIQUE: Craniocaudal and mediolateral oblique 3-D tomosynthesis images were obtained and synthetic 2-D images were generated. CAD analysis was submitted and interpreted. COMPARISON: Comparison to multiple prior studies sequentially, with oldest reviewed study dated 06/17. BREAST PARENCHYMAL COMPOSITION: Not dense: There are scattered areas of fibroglandular density. FINDINGS: There is no evidence of suspicious mass, calcification, or architectural distortion to sugg est malignancy in either breast. There has been no suspicious interval change. IMPRESSION: 1. No mammographic evidence of malignancy. 2. Recommend routine screening mammography in one year. BI-RADS Category 1: Negative Reviewed, dictated and finalized at location B.
== END 2024-05-18 15:32 ==
LOC: MICIMG 15:32
PROVIDERS: PCP Obstetrics & Gynecology; Visit Provider Family Medicine
DX: Z12.31 Encounter for screening mammogram for malignant neoplasm of breast (principal)
CPT/HCPCS: 77063; 77067

== ENCOUNTER 2024-08-14 02:14 | Day surgery (SDC) | payer MEDICARE, SELFPAY ==
[2024-07-31 11:42] VITALS: BMI 27.8
[2024-08-14 11:44] VITALS: BP 129/79; PULSE 60; RESP 18; TEMP 36.2; O2SAT 97
--- NOTE | 2024-08-14 11:51 | P.PNAN_ITS ---
Anes - Initial Pre Proc Eval Procedure: Operation Date: 08/14/24 13:00 Proposed Procedures p Esophagogastroduodenoscopy - Dominick Lehman MD Date/Time: 08/14/24 11:51 Surgeon: Dominick Lehman MD Pre Op Diagnosis: GERD Patient Data Age: 64 Gender: F Height: 1.57 m Weight: 68.2 kg Last Vital Signs Temp 36.2 C L 08/14/24 11:44 Pulse 60 08/14/24 11:44 Resp 18 08/14/24 11:44 BP 129/79 08/14/24 11:44 Pulse Ox 97 08/14/24 11:44 O2 Del Method Room Air 08/14/24 11:44 Allergies Allergy/AdvReac Type Severity Reaction Status Date / Time No Known Allergies Allergy Verified 08/14/24 11:41 Home Medications Medication Instructions Recorded Confirmed Type cetirizine 10 mg tablet (Zyrtec) 10 mg PO DAILY 07/11/20 08/14/24 History denosumab 60 mg/mL subcutaneous 60 mg subcut [id number] 07/29/21 07/31/24 History syringe (Prolia) albuterol sulfate 2.5 mg/3 mL 2.5 mg (3 mL) inhalation Q4-6H PRN 02/08/23 08/14/24 Rx (0.083 %) solution for nebulization shortness of breath or wheezing #90 mL fluticasone fur. 200 mcg-umeclid 1 inh inhalation DAILY #180 ea 11/02/23 08/14/24 Rx 62.5 mcg-vilant 25 mcg inhalat.powder (Trelegy Ellipta) azelastine 137 mcg (0.1 %) nasal 2 spray intranasal BID 90 days #90 01/31/24 08/14/24 Rx spray mL fluticasone propionate 50 2 spray intranasal BID #16 grams 01/31/24 08/14/24 Rx mcg/actuation nasal spray,suspension fluoxetine 20 mg capsule 20 mg PO DAILY #90 caps 06/23/24 08/14/24 Rx montelukast 10 mg tablet 10 mg PO DAILY #90 tabs 06/23/24 08/14/24 Rx tezepelumab-ekko 210 mg/1.91 mL 210 mg subcut [id number] 06/29/24 07/31/24 History (110 mg/mL) subcutaneous pen injector (Tezspire) gabapentin 100 mg capsule 200 mg PO QAM #180 caps 07/05/24 08/14/24 Rx pantoprazole 40 mg tablet,delayed 40 mg PO QAM #90 tabs 07/06/24 08/14/24 Rx release (Protonix) albuterol sulfate 90 mcg/actuation 1 inh inhalation PRN PRN Shortness 07/31/24 08/14/24 History aerosol inhaler Of Breath Or Wheezing amlodipine 5 mg tablet 5 mg PO DAILY 07/31/24 08/14/24 History calcium 600 mg (as 1 cap PO DAILY 07/31/24 08/14/24 History carbonate)-vitamin D3 62.5 mcg (2,500 unit) capsule gabapentin 300 mg capsule 300 mg PO QPM 07/31/24 08/14/24 History hydrochlorothiazide 12.5 mg tablet 12.5 mg PO DAILY 07/31/24 08/14/24 History Patient hx anesthesia problems: none Family hx anesthesia problems: none Results Review: All pre-operative results and documents have been reviewed as part of the pre- operative evaluation. [facility] Past Medical History Medical History (Updated 08/14/24 @ 11:52 by Juan Carmichael MD) Cervical cancer screening CTS (carpal tunnel syndrome) (~2006) HTN (hypertension) Tremor Wellness examination Surgical History Surgical History H/O sinus surgery (~2003) History of orthopedic surgery several foot surgeries Hx of cholecystectomy (~2013) Family History Family History Father Hypertension Family history of heart disease in male family member before age 55 Carcinoma of colon Bladder cancer Heart disease Mother Family history of Parkinson's disease Sibling Hypertension Family history of alcoholism Other Family history of arthritis Family history of gout Social History Social History (Updated 08/14/24 @ 11:52 by Juan Carmichael MD) Smoking packs per day: 1 Smoking cigarettes per day: 20.0 Years smoked: 20 Smoking pack-years: 20.00 Smoking status: Former smoker Tobacco type: cigarettes Second hand tobacco smoke exposure: No Smoking end date: 06/01/01 Alcohol intake: never Alcohol use details: social drinker Substance use: current Substance use type: marijuana Other substance usage details: CBD/THC gummies 2-3/week Do You Feel Safe in your Home?: Yes Lack of Transportation: No Lack of Food: Never True Current Housing: I Have Housing Concerned About Future Housing: No Difficulty Paying Gas/Electric Bills: No Difficulty Paying for Meds: No Currently Unemployed: No Education: Trade/Vocational Certificate Difficulty w/ Childcare or Family Care: No Living arrangements: with family Occupation/Education: occupation Gender identity (if verbalized by the patient): Female Sexual Orientation (if Verbalized by the Patient): Straight or Heterosexual Spiritual care concerns: No Anes - Eval Final PreProcedure Day of Procedure 08/14/24 11:51 Patient weight: overweight Heart: regular rate and rhythm Lungs: clear to auscultation Airway: Mallampati scale class II Neurological: alert and oriented Last oral intake: >/= 8 hours ASA classification: III Emergent: no Anesthetic plan: proceed Anesthesia type and monitoring: general GIVS and standard monitoring Results Review: All pre-operative results and documents have been reviewed as part of the pre- operative evaluation. Informed Consent: The patient's anesthetic plan and its attendant risks and benefits were discussed with the patient/family/POA. Questions were solicited and answers provided to the satisfaction of the patient/family/POA.
[2024-08-14] MEDS: LACTATED RINGERS 1,000 ML 150 ML IV CONT (12:00)
--- NOTE | 2024-08-14 12:00 | PM.HPGS ---
History of Present Illness History of Present Illness Consent: Risks, benefits, and alternatives have been discussed and questions answered. Patient agrees to proceed with procedure. Chief complaint: GERD Narrative: Ashlie Donald is a 64 year old female with gerd that has improved and feeling much better with pantoprazole, last egd 2020 with esophagitis and had web, also h/o asthma on medication. Review of Systems Review of Systems: All systems reviewed & are unremarkable except as noted in HPI and below PMFSH Past Medical History Medical History (Updated 08/14/24 @ 11:52 by Juan Carmichael MD) Cervical cancer screening CTS (carpal tunnel syndrome) (~2006) HTN (hypertension) Tremor Wellness examination Surgical History Surgical History H/O sinus surgery (~2003) History of orthopedic surgery several foot surgeries Hx of cholecystectomy (~2013) Family History Family History Father Hypertension Family history of heart disease in male family member before age 55 Carcinoma of colon Bladder cancer Heart disease Mother Family history of Parkinson's disease Sibling Hypertension Family history of alcoholism Other Family history of arthritis Family history of gout Social History Social History (Updated 08/14/24 @ 11:52 by Juan Carmichael MD) Smoking packs per day: 1 Smoking cigarettes per day: 20.0 Years smoked: 20 Smoking pack-years: 20.00 Smoking status: Former smoker Tobacco type: cigarettes Second hand tobacco smoke exposure: No Smoking end date: 06/01/01 Alcohol intake: never Alcohol use details: social drinker Substance use: current Substance use type: marijuana Other substance usage details: CBD/THC gummies 2-3/week Do You Feel Safe in your Home?: Yes Lack of Transportation: No Lack of Food: Never True Current Housing: I Have Housing Concerned About Future Housing: No Difficulty Paying Gas/Electric Bills: No Difficulty Paying for Meds: No Currently Unemployed: No Education: Trade/Vocational Certificate Difficulty w/ Childcare or Family Care: No Living arrangements: with family Occupation/Education: occupation Gender identity (if verbalized by the patient): Female Sexual Orientation (if Verbalized by the Patient): Straight or Heterosexual Spiritual care concerns: No Meds Home Medications and Allergies Home Medications Medication Instructions Recorded Confirmed Type cetirizine 10 mg tablet (Zyrtec) 10 mg PO DAILY 07/11/20 08/14/24 History denosumab 60 mg/mL subcutaneous 60 mg subcut [id number] 07/29/21 07/31/24 History syringe (Prolia) albuterol sulfate 2.5 mg/3 mL 2.5 mg (3 mL) inhalation Q4-6H PRN 02/08/23 08/14/24 Rx (0.083 %) solution for nebulization shortness of breath or wheezing #90 mL fluticasone fur. 200 mcg-umeclid 1 inh inhalation DAILY #180 ea 11/02/23 08/14/24 Rx 62.5 mcg-vilant 25 mcg inhalat.powder (Trelegy Ellipta) azelastine 137 mcg (0.1 %) nasal 2 spray intranasal BID 90 days #90 01/31/24 08/14/24 Rx spray mL fluticasone propionate 50 2 spray intranasal BID #16 grams 01/31/24 08/14/24 Rx mcg/actuation nasal spray,suspension fluoxetine 20 mg capsule 20 mg PO DAILY #90 caps 06/23/24 08/14/24 Rx montelukast 10 mg tablet 10 mg PO DAILY #90 tabs 06/23/24 08/14/24 Rx tezepelumab-ekko 210 mg/1.91 mL 210 mg subcut [id number] 06/29/24 07/31/24 History (110 mg/mL) subcutaneous pen injector (Tezspire) gabapentin 100 mg capsule 200 mg PO QAM #180 caps 07/05/24 08/14/24 Rx pantoprazole 40 mg tablet,delayed 40 mg PO QAM #90 tabs 07/06/24 08/14/24 Rx release (Protonix) albuterol sulfate 90 mcg/actuation 1 inh inhalation PRN PRN Shortness 07/31/24 08/14/24 History aerosol inhaler Of Breath Or Wheezing amlodipine 5 mg tablet 5 mg PO DAILY 07/31/24 08/14/24 History calcium 600 mg (as 1 cap PO DAILY 07/31/24 08/14/24 History carbonate)-vitamin D3 62.5 mcg (2,500 unit) capsule gabapentin 300 mg capsule 300 mg PO QPM 07/31/24 08/14/24 History hydrochlorothiazide 12.5 mg tablet 12.5 mg PO DAILY 07/31/24 08/14/24 History Allergies Allergy/AdvReac Type Severity Reaction Status Date / Time No Known Allergies Allergy Verified 08/14/24 11:41 Vital Signs Vital Signs - 24 hr 08/14/24 11:44 Temperature 97.1 F L Pulse Rate 60 Respiratory Rate 18 Blood Pressure 129/79 Pulse Oximetry 97 Oxygen Delivery Room Air Exam Const: General: comfortable and no acute distress HENMT: Face/Nose/Sinus: Normal nares present Eyes: General: appearance normal, both eyes and all related structures Neck: Neck: no JVD Resp: Auscultation: clear to auscultation bilaterally Cardio: Rate: regular rate Rhythm: regular rhythm GI: Inspection: non-distended GI Palp: Yes Soft to palpation Skin: General skin exam: normal color Neuro: General: gait normal Speech: normal speech Extrem: General: normal to inspection Psych: Mental Status: mental status grossly normal Assessment and Plan Assessment and plan (1) GERD (gastroesophageal reflux disease): Qualifiers: Esophagitis presence: without esophagitis Qualified Code(s): K21.9 - Gastro-esophageal reflux disease without esophagitis Code(s): K21.9 - Gastro-esophageal reflux disease without esophagitis Status: Acute Assessment and Plan: egd doing better with ppi (2) Productive cough: Code(s): R05.8 - Other specified cough Status: Acute (3) Eosinophilic asthma: Code(s): J82.83 - Eosinophilic asthma Status: Acute Assessment and Plan: on tezpire
[2024-08-14] MEDS: BENZOCAINE (*SP) 60 ML SPRAY CAN (HURRICAINE) 1 SPRAY MUCOUS MEM (12:04)
[2024-08-14 12:13] VITALS: BP 100/48; PULSE 56; RESP 24; O2SAT 99
[2024-08-14 12:23] VITALS: BP 101/61; PULSE 54; RESP 20; O2SAT 96
[2024-08-14 12:33] VITALS: BP 123/55; PULSE 61; RESP 19; O2SAT 97
== END 2024-08-14 12:44 | disposition home or self-care (01) ==
PROVIDERS: PCP Family Medicine; Visit Provider Internal Medicine Gastroenterology
PROC: 0DJ08ZZ Inspection of Upper Intestinal Tract, Via Natural or Artificial Opening Endoscopic (ICD-10-PCS; CPT 43235; principal; 2024-08-14 13:00)
DX: K21.00 Gastro-esophageal reflux disease with esophagitis, without bleeding (principal); K44.9 Diaphragmatic hernia without obstruction or gangrene; K29.50 Unspecified chronic gastritis without bleeding; I10 Essential (primary) hypertension; J82.83 Eosinophilic asthma; Z87.891 Personal history of nicotine dependence; F12.90 Cannabis use, unspecified, uncomplicated; Z79.51 Long term (current) use of inhaled steroids; Z79.620 Long term (current) use of immunosuppressive biologic
CPT/HCPCS: 43239; 88305; J2003; J2704; J7120

== ENCOUNTER 2024-08-28 09:05 | Outpatient (CLI) | payer MEDICARE, SELFPAY ==
--- NOTE | ~2024-08-28 | XR_ITS ---
Clinical Indication: Asthma PA and lateral views of the chest: Comparison: 05/02/2024 Findings: The lungs are clear, without evidence of focal consolidation or pleural effusion. Cardiome diastinal silhouette is within normal limits. Bones and soft tissues are unremarkable. Impression: Normal chest. Reviewed, dictated and finalized at location . Impression: Normal chest.
== END 2024-08-28 09:06 | disposition home or self-care (01) ==
PROVIDERS: PCP Family Medicine; Visit Provider Physician Assistant
DX: J45.909 Unspecified asthma, uncomplicated (principal); R05.9 Cough, unspecified; R50.9 Fever, unspecified
CPT/HCPCS: 71046

== ENCOUNTER 2024-09-25 10:36 | Emergency (ER) | payer MEDICARE, SELFPAY ==
[2024-09-25 10:54] VITALS: BP 140/80; PULSE 78; RESP 16; TEMP 36.1; O2SAT 96
--- NOTE | 2024-09-25 11:17 | ED.URI ---
HPI - URI/Sore Throat General Chief Complaint: Upper Respiratory Infection Stated Complaint: CONGESTION/COUGH/ASTHMA Time Seen by Provider: 09/25/24 11:17 Source: patient Mode of arrival: ambulatory Limitations: no limitations History of Present Illness HPI Narrative: 64 yo F with hx of severe asthma presents with complaint of cough, chest congestion for the past 10 days. Patient states that she is using her trilogy inhaler and also albuterol inhaler. Does have a nebulizer machine but has not used it. Afebrile. Patient reports history of pneumonia. Increased shortness of breath with exertion over the past 2 days. Patient reports that she has been told by her certified pest control technician that she can still get pneumonia, is only vaccinated against 9 of the 23 strains . All Systems reviewed and negative except as noted above. Related Data Home Medications Medication Instructions Recorded Confirmed cetirizine 10 mg tablet (Zyrtec) 10 mg PO DAILY 07/11/20 09/25/24 denosumab 60 mg/mL subcutaneous 60 mg subcut [id number] 07/29/21 09/25/24 syringe (Prolia) tezepelumab-ekko 210 mg/1.91 mL 210 mg subcut [id number] 06/29/24 09/25/24 (110 mg/mL) subcutaneous pen injector (Tezspire) albuterol sulfate 90 mcg/actuation 1 inh inhalation PRN PRN Shortness 07/31/24 09/25/24 aerosol inhaler Of Breath Or Wheezing amlodipine 5 mg tablet 5 mg PO DAILY 07/31/24 09/25/24 calcium 600 mg (as 1 cap PO DAILY 07/31/24 09/25/24 carbonate)-vitamin D3 62.5 mcg (2,500 unit) capsule gabapentin 300 mg capsule 300 mg PO QPM 07/31/24 09/25/24 hydrochlorothiazide 12.5 mg tablet 12.5 mg PO DAILY 07/31/24 09/25/24 Allergies Allergy/AdvReac Type Severity Reaction Status Date / Time No Known Allergies Allergy Verified 09/25/24 11:00 Review of Systems Review of Systems: CONSTITUTIONAL: Denies fever, chills, or sweats. EYES: Denies visual changes, redness, or discharge. ENT: Denies rhinorrhea, congestion, sore throat, or otalgia. CARDIOVASCULAR: Denies chest pain, palpitations, or edema. RESPIRATORY: Reports cough, chest congestion, dyspnea with exertion. GASTROINTESTINAL: Denies abdominal pain, nausea, vomiting, or diarrhea. GENITOURINARY: Denies dysuria or hematuria. SKIN: Denies rash or itching. MUSCULOSKELETAL: Denies back pain, joint pain, or myalgia. NEUROLOGIC: Denies headache, numbness, or weakness. PSYCHIATRIC: Denies anxiety or depression. All other systems reviewed are negative, except as documented in HPI. [facility] Past Medical History Medical History Cervical cancer screening CTS (carpal tunnel syndrome) (~2006) HTN (hypertension) Tremor Wellness examination Surgical History Surgical History H/O sinus surgery (~2003) History of orthopedic surgery several foot surgeries Hx of cholecystectomy (~2013) Family History Family History Father Hypertension Family history of heart disease in male family member before age 55 Carcinoma of colon Bladder cancer Heart disease Mother Family history of Parkinson's disease Sibling Hypertension Family history of alcoholism Other Family history of arthritis Family history of gout Social History Social History Smoking packs per day: 1 Smoking cigarettes per day: 20.0 Years smoked: 20 Smoking pack-years: 20.00 Smoking status: Former smoker Tobacco type: cigarettes Second hand tobacco smoke exposure: No Smoking end date: 06/01/01 Alcohol intake: never Alcohol use details: social drinker Substance use: current Substance use type: marijuana Other substance usage details: CBD/THC gummies 2-3/week Do You Feel Safe in your Home?: Yes Lack of Transportation: No Lack of Food: Never True Current Housing: I Have Housing Concerned About Future Housing: No Difficulty Paying Gas/Electric Bills: No Difficulty Paying for Meds: No Currently Unemployed: No Education: Trade/Vocational Certificate Difficulty w/ Childcare or Family Care: No Living arrangements: with family Occupation/Education: occupation Gender identity (if verbalized by the patient): Female Sexual Orientation (if Verbalized by the Patient): Straight or Heterosexual Spiritual care concerns: No Comments At time of signature, agree with nursing past medical, surgical, social and family history. There is no relevant family history pertinent to the presenting complaint. Exam Narrative: GENERAL: This is a well-nourished, well-developed patient, in no apparent distress. HEAD: normocephalic, atraumatic. EYES: PERRL. Sclera clear/white. Vision is grossly intact. EARS: External ears normal, auditory canals clear and without drainage, TMs normal without perforation. Hearing grossly intact. NOSE: External nose normal with no obvious nasal discharge, nares without redness, no rhinorrhea. THROAT: Mucous membranes moist, posterior pharynx clear. NECK: Neck supple, non-tender without lymphadenopathy, masses or thyromegaly. CARDIOVASCULAR: Regular rate and rhythm without murmurs, gallops, or rubs. RESPIRATORY: Coarse throughout all lung esteves, coarseness is worse on expiration. Breath sounds equal bilaterally. No wheezes, rales, or rhonchi. SKIN: warm, Dry, intact with no suspicious lesions or rash, good texture and turgor. NEURO: awake, alert, and oriented to person, place and time. There were no obvious focal neurologic abnormalities. EXTREMITIES: No joint tenderness, effusion, or edema noted. Course Course Level of Care: Express Care Visit Vital Signs Vital signs: Vital Signs Temperature 36.1 C L 09/25/24 10:54 Pulse Rate 78 09/25/24 10:54 Respiratory Rate 16 09/25/24 10:54 Blood Pressure 140/80 09/25/24 10:54 Pulse Oximetry 96 09/25/24 10:54 Oxygen Delivery Room Air 09/25/24 10:54 Temperature 36.1 C L 09/25/24 10:54 Pulse Rate 78 09/25/24 10:54 Respiratory Rate 16 09/25/24 10:54 Blood Pressure 140/80 09/25/24 10:54 Pulse Oximetry 96 09/25/24 10:54 Oxygen Delivery Room Air 09/25/24 10:55 Reviewed MDM - URI/Sore Throat MDM Narrative Medical decision making narrative: Will treat patient with antibiotic due to pneumonia history, patient's sounds. Recommend she start using her albuterol nebs at home. Continue Mucinex DM. Patient nontoxic. No respiratory distress. Patient is aware of diagnosis, understands and agrees to treatment plan. Anticipatory guidance given. Patient agrees to follow-up as directed and is aware of reasons to seek care at the emergency department. Portions of this record may have been created with voice recognition software Differential Diagnosis Differential diagnosis: Likely upper respiratory infection, viral infection, bronchitis and other (Pneumonia) Discharge Plan Discharge Clinical Impression: Pneumonia, Asthma exacerbation Patient Disposition: Home, Self-Care Condition: Stable Instructions: Antibiotic Form, Pneumonia (ED) Additional Instructions: Take medications as prescribed. Continue using inhalers as prescribed. Give yourself and albuterol neb treatment every 4-6 hours as needed for coughing, wheezing, shortness of breath. Continue taking [id number] medication to treat her symptoms such as Mucinex DM. Drink at least 64 oz of water a day. Follow-up with your doctor if symptoms are not improving. Prescriptions: New doxycycline hyclate 100 mg capsule 100 mg PO BID 7 Days Qty: 14 0RF prednisone 20 mg tablet 40 mg PO DAILY 5 Days Qty: 10 0RF No Action cetirizine [Zyrtec] 10 mg Tablet 10 mg PO DAILY Prolia 60 mg/mL syringe 60 mg subcut [id number] albuterol sulfate 2.5 mg /3 mL (0.083 %) solution for nebulization 2.5 mg inhalation Q4-6H PRN (Reason: shortness of breath or wheezing) Qty: 90 3RF Tezspire 210 mg/1.91 mL (110 mg/mL) pen injector 210 mg subcut [id number] gabapentin 100 mg capsule 200 mg PO DAILY Qty: 180 2RF Rx Instructions: Take 200 mg daily amlodipine 5 mg tablet 5 mg PO DAILY Rx Instructions: TAKE 1 TABLET DAILY gabapentin 300 mg capsule 300 mg PO QPM albuterol sulfate 90 mcg/actuation HFA aerosol inhaler 1 inh inhalation PRN PRN (Reason: Shortness Of Breath Or Wheezing) Rx Instructions: USE 1 INHALATION BY MOUTH INHALED EVERY 4 HOURS NEEDED FOR SHORTNESS OF BREATH OR WHEEZING hydrochlorothiazide 12.5 mg tablet 12.5 mg PO DAILY Rx Instructions: TAKE 1 TABLET BY MOUTH EVERY DAY calcium carbonate-vitamin D3 600 mg-62.5 mcg (2,500 unit) capsule 1 cap PO DAILY Trelegy Ellipta 200-62.5-25 mcg blister with device 1 inh inhalation DAILY Qty: 180 3RF Rx Instructions: Rinse mouth and spit after each use azelastine 137 mcg (0.1 %) aerosol,spray 2 spray intranasal BID 90 Days Qty: 90 3RF fluticasone propionate 50 mcg/actuation spray,suspension 2 spray intranasal BID Qty: 16 3RF Rx Instructions: administer into each nostril fluoxetine 20 mg capsule 20 mg PO DAILY Qty: 90 2RF montelukast 10 mg tablet 10 mg PO DAILY Qty: 90 2RF pantoprazole [Protonix] 40 mg tablet,delayed release (DR/EC) 40 mg PO QAM Qty: 90 3RF Follow-up/Referrals: Tal Ashley MD [Primary Care Provider] - Time of Disposition: 11:26
== END 2024-09-25 11:30 | disposition home or self-care (01) ==
PROVIDERS: Emergency Provider Nurse Practitioner Family; PCP Family Medicine
DX: J18.9 Pneumonia, unspecified organism (principal); J45.901 Unspecified asthma with (acute) exacerbation; Z87.891 Personal history of nicotine dependence; F12.90 Cannabis use, unspecified, uncomplicated; I10 Essential (primary) hypertension
CPT/HCPCS: 99213; G0463

== ENCOUNTER 2024-10-06 15:59 | Outpatient (CLI) | payer MEDICARE, SELFPAY ==
[2024-10-06 16:22] LABS: Hematocrit 41.5 % (37.0-47.0); Hemoglobin 13.6 g/dL (12.0-15.0); Mean Corpuscular HGB Conc 32.8 g/dl (32-36); Mean Corpuscular Hemoglobin 28.6 pg (26-34); Mean Corpuscular Volume 87.2 fl (80-100); Mean Platelet Volume 8.5 fl (7.4-10.4); Platelet Count Result 391 k/mm3 (150-375); Red Blood Count 4.76 M/mm3 (4.2-5.4); Red Cell Distribution Width 14.6 % (11.5-14.5); White Blood Count 10.3 K/mm3 (4.5-10.0)
[2024-10-06 16:29] LABS: Add Urine Microscopic? YES; Appearance Urine Clear (Clear); Bacteria Urine None Seen /hpf; Bilirubin Urine Negative (Negative); Blood Urine Negative (Negative); Color Urine Yellow (Yellow); Glucose Urine UA Negative (Negative); Ketones Urine Negative (Negative); Leukocyte Esterase Ur Trace LEU/UL (Negative); Nitrate Urine Negative (Negative); Non Pathogenic Casts 0-2; Protein Urine Negative (Negative); RBC Urine 0-2 /hpf (0-2); Specific Grav Ur 1.023 (1.001-1.035); Squamous Epithelial Cell Urine None Seen /hpf (Few); Urobilinogen Urine 0.2 mg/dL (<2.0); WBC Urine 0-5 /hpf (0-3)
[2024-10-06 16:32] LABS: Alanine Aminotransferase 18 U/L (6-35); Albumin Level 4.2 g/dL (3.5-5.1); Alkaline Phosphatase 103 U/L (38-126); Anion Gap 5 mmol/L (4-12); Aspartate Amino Transferase 29 U/L (14-36); Bilirubin,Total 0.4 mg/dL (0.2-1.3); Blood Urea Nitrogen 17 mg/dL (7-17); Calcium 10.1 mg/dL (8.4-10.2); Carbon Dioxide 27 mmol/L (22-30); Chloride 107 mmol/L (98-107); Estimated Glomerular Filt Rate > 60; Glucose 118 mg/dL (65-110); Potassium 3.8 mmol/L (3.4-5.0); Sodium 139 mmol/L (137-145)
[2024-10-06 16:47] LABS: Hemoglobin A1C 6.1 % (<5.7)
[2024-10-06 17:02] LABS: Thyroid Stimulating Hormone 0.878 uIU/mL (0.465-4.680)
== END 2024-10-06 16:00 | disposition home or self-care (01) ==
LOC: ANHLAB 16:00
PROVIDERS: PCP Family Medicine; Visit Provider Physician Assistant
DX: I87.2 Venous insufficiency (chronic) (peripheral) (principal); E78.5 Hyperlipidemia, unspecified; E83.52 Hypercalcemia; I10 Essential (primary) hypertension; J45.909 Unspecified asthma, uncomplicated; R73.01 Impaired fasting glucose; Z00.00 Encounter for general adult medical examination without abnormal findings
CPT/HCPCS: 36415; 80053; 81001; 83036; 84443; 85027

== ENCOUNTER 2024-10-26 14:53 | Outpatient (CLI) | payer MEDICARE, SELFPAY ==
--- NOTE | ~2024-10-26 | XR_ITS ---
XR chest 2V Ordering provider: Andre Barton PA-C History: 64 years Female with . R05.9 - Cough, unspecified . Comparison: August 28, 2024 FINDINGS: MEDIASTINUM: The cardiac silhouette is not enlarged. LUNGS: No effusions or pneumothorax. Opacification the left lung base medially suggestive of atelecta sis versus pneumonia. OTHER: No free air under the diaphragm. IMPRESSION: Left basal atelectasis versus pneumonia. Follow-up advised. Reviewed, dictated and finalized at location [facility]
[2024-10-26 15:45] LABS: Influenza A QL RT-PCR Negative (Negative); Influenza B QL RT-PCR Negative (Negative); RSV RNA, RT-PCR Negative (Negative); SARS-CoV-2 RNA PCR Negative (Negative)
== END 2024-10-26 14:54 | disposition home or self-care (01) ==
LOC: ANHLAB 14:55
PROVIDERS: PCP Family Medicine; Visit Provider Physician Assistant
DX: R50.9 Fever, unspecified (principal); R05.9 Cough, unspecified; R91.8 Other nonspecific abnormal finding of lung field
CPT/HCPCS: 71046; 87637

== ENCOUNTER 2025-02-08 13:42 | Outpatient (CLI) | payer MEDICARE, SELFPAY ==
--- OUTSIDE RECORDS SUMMARY | 2025-02-08 14:15 | XMS_ITS | Referral Summary ---
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 Gender Identity Not on file Sexual Orientation Not on file Last Filed Vital Signs Vital Sign Reading Time Taken Comments Blood Pressure - - Pulse - - Temperature - - Respiratory Rate - - Oxygen Saturation - - Inhaled Oxygen Concentration - - Weight 71.7 kg (158 lb 0.1 oz) 05/24/2013 1:20 P M CDT Height 160 cm (5' 3 ) 05/24/2013 1:20 PM CDT Body Mass Index 27.99 05/24/2013 1:20 PM CDT Plan of Treatment Not on file Insurance [employer] [facility] HMO Care Teams Center Medical Specialist Relationship Specialty Start Date End Date Tal Ashley MD [address] [place] [address] PCP - General Family Medicine 10/14/20
--- OUTSIDE RECORDS SUMMARY | 2025-02-08 14:15 | XMS_ITS | Clinical Summary ---
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 [address] [place] [address] PCP - General Family Medicine 10/14/20
--- OUTSIDE RECORDS SUMMARY | 2025-02-08 14:16 | XMS_ITS ---
Author Organization [facility] Address [address] [place] [address] Care Team Providers Care Castings Trimmer Name Role Phone Tal Ashley MD Primary Care Provider UnavailJose De Jesus White Unavailable [phone] Esvin Valle Unavailable Unavailable Aristeo Rosa Unavailable [phone] REASON FOR VISIT SCIT - Traditional Schedule Allergy immunotherapy Medications Medication SIG (Take, Route, Frequency, Duration) Notes Start Date End Date Status Pantoprazole Sodium 40 MG 1 tablet Orally Once a day Active Montelukast Sodium 10 MG 1 tab(s) orally once a day Active Cetirizine HCl 10 MG 1 tab(s) orally once a day Active PriLOSEC OTC 20 MG 1 tab(s) orally once a day Active Tezspire 210 MG/1.91ML as directed Subcutaneous Active TRELEGY ELLIPTA 200 mcg-62.5 mcg-25 mcg/inh 1 puff(s) inhaled once a day Active AZELASTINE NASAL 137 mcg/inh 2 spray(s) intranasally 2 times a day Active FLUTICASONE NASAL 50 mcg/inh 1 spray(s) in each nostril once a day Active CETIRIZINE 10 mg 1 tab(s) orally once a day Active SIT (TRADITIONAL) variable per schedule SC per schedule for to be determined Active PROZAC 10 mg 1 cap(s) orally once a day Active CALTRATE 600 + D 600 mg-20 mcg 1 tab(s) orally 2 times a day Active AMLODIPINE 5 mg 1 tab(s) orally once a day Active ALBUTEROL (EQV-PROAIR HFA) 90 mcg/inh 2 puff(s) inhaled every 6 hours Active MONTELUKAST 10 mg 1 tab(s) orally once a day Active SIT (TRADITIONAL) VARIABLE PER SCHEDULE SC PER SCHEDULE for TO BE DETERMINED *Please review for potential replacement for e-prescription and drug interaction check* 07/19/2023 Not-Taking Amoxicillin-Pot Clavulanate 875-125 MG 1 tablet Orally twice a day for 7 days 10/30/2024 Active EpiPen 2-Chester 0.3 mg as directed intramuscularly once for 30 days Active Doxycycline Hyclate 100 MG 1 capsule Orally Twice a day for 7 days 10/30/2024 Active PRILOSEC OTC 20 mg 1 tab(s) orally once a day Active Ipratropium-Albute rol 0.5-2.5 (3) MG/3ML 3 mL by nebulizer 4 times a day for 30 day(s) Active Omeprazole 20 MG 1 cap(s) orally once a day for 30 day(s) Active Fasenra Pen 30 MG/ML DIRECTED SUBCUTANEOUSLY EVERY 4 WEEKS X 3 THEN EVERY 8 WEEKS for 30 DAYS *Please review and pick correct strength-formula tion from Accolo options. If intended option is not shown, discontinue and re-order from Quick Search* Not-Taking PROzac 10 MG 1 cap(s) orally once a day Not-Taking Azelastine HCl 137 MCG/SPRAY 2 spray(s) intranasally 2 times a day Active Mucinex 600 MG 1 tab(s) orally ever y 12 hours Active Rosuvastatin Calcium 10 MG 1 tab(s) orally once a day Active Gabapentin 300 MG 1 cap(s) orally 3 times a day takes 300mg at HS and 200mg in AM Active ONE A DAY WOMEN'S COMPLETE MULTIPLE VITAMINS WITH MINERALS 1 TAB(S) ORALLY ONCE A DAY *Please review for potential replacement for e-prescription and drug interaction check* Active Trelegy Ellipta 200 MCG-62.5 MCG-25 MCG/INH 1 PUFF(S) INHALED ONCE A DAY *Please review and pick correct strength-formula tion from Accolo options. If intended option is not shown, discontinue and re-order from Quick Search* Active Prolia 60 MG/ML as directed subcutaneously every 6 months Active Encounters Encounter Location Date Provider Diagnosis [facility] [place] [address] [facility] [address] [place] [address] 01/24/2025 Aristeo Moe Allergic rhinitis du e to pollen J30.1 ; Allergic rhinitis due to animal (cat) (dog) hair and dander J30.81 ; Other allergic rhinitis J30.89 and Other chronic allergic conjunctivitis H10.45 Assessments Encounter Date Diagnosis (ICD Code) Assessment Notes Treatment Notes Treatment Clinical Notes Section Notes 01/24/2025 Allergic rhinitis due to pollen (ICD-10 - J30.1) 01/24/2025 Allergic rhinitis due to animal (cat) (dog) hair and dander (ICD-10 - J30.81) 01/24/2025 Other allergic rhinitis (ICD-10 - J30.89) 01/24/2025 Other chronic allergic conjunctivitis (ICD-10 - H10.45) Plan Of Treatment Next Appt Details Follow Up: 1 Week, Reason: Provider Name:Aristeo VenitaZeke Rosa , 02/21/2025 04:50:00 PM, [address] [facility], [address] [place] [address], [id number], Provider Name:Aristeo VenitaZeke Rosa , 03/08/2025 11:00:00 AM, [address] [facility], [address], [address], Progress Notes * Ashlie DONALD MDOB: [birth year] (64 yo F)Acc No.[id number]:01/24/2025 SCIT-Aeroallergen Patient: Ashlie APONTE Provider: Chapito Rosa MD :1960 A ge:64 Y S ex:Female Date:01/24/2025 Address:[address] [place], [place] [id number] Pcp:Tal Ashley MD Subjective: * Chief Complaints: * S CIT - Traditional Schedule Allergy immunotherapy * HPI: * Introduction: The patient is here for scheduled immunotherapy. Please see the attached specialty form regarding the specifics of the administration of these vaccines. As per our protocol, they must undergo a screening health questionnaire (medication changes, reaction(s) to last immunotherapy dose(s), current health status, ACT (if appropriate), self-injectable epinephrine on patient(?) and peak flow (if appropriate)). Also, the patient must wait in our office for 30 minutes after receiving the vaccine(s). Furthermore, every patient must have an epinephrine pen (self-injectable) with them at the time of administration--and carry if for the following 1.5 hours after they leave our office. The patient must also have taken their antihistamine the day of the injection, preferably 2 hours prior. The consent form for SCIT (subcutaneous immunotherapy) is on file. * Medical History: * Surgical History: * Hospitalization/Major Diagno stic Procedure: * Medications: T akingEpiPen 2-Chester 0.3 mg kit as directed intramuscularly once EpiPen 2-Chester 0.3 mg kit as directed intramuscularly once PRILOSEC OTC 20 mg delayed release tablet 1 tab(s) orally once a day PROZAC 10 mg capsule 1 cap(s) orally once a day CALTRATE 600 + D 600 mg-20 mcg tablet 1 tab(s) orally 2 times a day AMLODIPINE 5 mg tablet 1 tab(s) orally once a day ALBUTEROL (EQV-PROAIR HFA) 90 mcg/inh aerosol 2 puff(s) inhaled every 6 hours MONTELUKAST 10 mg tablet 1 tab(s) orally once a day TRELEGY ELLIPTA 200 mcg-62.5 mcg-25 mcg/inh powder 1 puff(s) inhaled once a day AZELASTINE NASAL 137 mcg/inh spray 2 spray(s) intranasally 2 times a day FLUTICASONE NASAL 50 mcg/inh spray 1 spray(s) in each nostril once a day CETIRIZINE 10 mg tablet 1 tab(s) orally once a day SIT (TRADITIONAL) variable see record per schedule SC per schedule Tezspire 210 MG/1.91ML Solution Prefilled Syringe as directed Subcutaneous Pantoprazole Sodium 40 MG Tablet Delayed Release 1 tablet Orally Once a day Montelukast Sodium 10 MG Tablet 1 tab(s) orally once a day Cetirizine HCl 10 MG Tablet 1 tab(s) orally once a day PriLOSEC OTC 20 MG Tablet Delayed Release 1 tab(s) orally once a day Prolia 60 MG/ML Solution Prefilled Syringe as directed subcutaneously every 6 months Mucinex 600 MG Tablet Extended Release 12 Hour 1 tab(s) orally every 12 hours Rosuvastatin Calcium 10 MG Tablet 1 tab(s) orally once a day Gabapentin 300 MG Capsule 1 cap(s) orally 3 times a day , Notes to Pharmacist: takes 300mg at HS and 200mg in AMONE A DAY WOMEN'S COMPLETE MULTIPLE VITAMINS WITH MINERALS TABLET 1 TAB(S) ORALLY ONCE A DAY , Notes to Pharmacist: *Please review for potential replacement for e-prescription and drug interaction check*Trelegy Ellipta 200 MCG-62.5 MCG-25 MCG/INH POWDER 1 PUFF(S) INHALED ONCE A DAY , Notes to Pharmacist: *Please review and pick correct strength-formulation from Accolo options. If intended option is not shown, discontinue and re-order from Quick Search*Azelastine HCl 137 MCG/SPRAY Solution 2 spray(s) intranasally 2 times a day Ipratropium-Albuterol 0.5-2.5 (3) MG/3ML Solution 3 mL by nebulizer 4 times a day Omeprazole 20 MG Capsule Delayed Release 1 cap(s) orally once a day Amoxicillin- Pot Clavulanate 875-125 MG Tablet 1 tablet Orally twice a day Doxycycline Hyclate 100 MG Capsule 1 capsule Orally Twice a day Taking EpiPen 2-Chester 0.3 mg kit as directed intramuscularly once Taking EpiPen 2-Chester 0.3 mg kit as directed intramuscularly once Taking PRILOSEC OTC 20 mg delayed release tablet 1 tab(s) orally once a day Taking PROZAC 10 mg capsule 1 cap(s) orally once a day Taking CALTRATE 600 + D 600 mg- 20 mcg tablet 1 tab(s) orally 2 times a day Taking AMLODIPINE 5 mg tablet 1 tab(s) orally once a day Taking ALBUTEROL (EQV-PROAIR HFA) 90 mcg/inh aerosol 2 puff(s) inhaled every 6 hours Taking MONTELUKAST 10 mg tablet 1 tab(s) orally once a day Taking TRELEGY ELLIPTA 200 mcg-62.5 mcg-25 mcg/inh powder 1 puff(s) inhaled once a day Taking AZELASTINE NASAL 137 mcg/inh spray 2 spray(s) intranasally 2 times a day Taking FLUTICASONE NASAL 50 mcg/inh spray 1 spray(s) in each nostril once a day Taking CETIRIZINE 10 mg tablet 1 tab(s) orally once a day Taking SIT (TRADITIONAL) variable see record per schedule SC per schedule Taking Tezspire 210 MG/1.91ML Solution Prefilled Syringe as directed Subcutaneous Taking Pantoprazole Sodium 40 MG Tablet Delayed Release 1 tablet Orally Once a day Taking Montelukast Sodium 10 MG Tablet 1 tab(s) orally once a day Taking Cetirizine HCl 10 MG Tablet 1 tab(s) orally once a day Taking PriLOSEC OTC 20 MG Tablet Delayed Release 1 tab(s) orally once a day Taking Prolia 60 MG/ML Solution Prefilled Syringe as directed subcutaneously every 6 months Taking Mucinex 600 MG Tablet Extended Release 12 Hour 1 tab(s) orally every 12 hours Taking Rosuvastatin Calcium 10 MG Tablet 1 tab(s) orally once a day Taking Gabapentin 300 MG Capsule 1 cap(s) orally 3 times a day , Notes to Pharmacist: takes 300mg at HS and 200mg in AMTaking ONE A DAY WOMEN'S COMPLETE MULTIPLE VITAMINS WITH MINERALS TABLET 1 TAB(S) ORALLY ONCE A DAY , Notes to Pharmacist: *Please review for potential replacement for e-prescription and drug interaction check*Taking Trelegy Ellipta 200 MCG-62.5 MCG-25 MCG/INH POWDER 1 PUFF(S) INHALED ONCE A DAY , Notes to Pharmacist: *Please review and pick correct strength-formulation from Accolo options. If intended option is not shown, discontinue and re-order from Quick Search*Taking Azelastine HCl 137 MCG/SPRAY Solution 2 spray(s) intranasally 2 times a day Taking Ipratropium-Albuterol 0.5-2.5 (3) MG/3ML Solution 3 mL by nebulizer 4 times a day Taking Omeprazole 20 MG Capsule Delayed Release 1 cap(s) orally once a day Taking Amoxicillin-Pot Clavulanate 875-125 MG Tablet 1 tablet Orally twice a day Taking Doxycycline Hyclate 100 MG Capsule 1 capsule Orally Twice a day Not-Taking/PRNFasenra Pen 30 MG/ML SOLUTION DIRECTED SUBCUTANEOUSLY EVERY 4 WEEKS X 3 THEN EVERY 8 WEEKS , Notes to Pharmacist: *Please review and pick correct strength-formulation from Accolo options. If intended option is not shown, discontinue and re-order from Quick Search*PROzac 10 MG Capsule 1 cap(s) orally once a day SIT (TRADITIONAL) VARIABLE SEE RECORD PER SCHEDULE SC PER SCHEDULE , Notes to Pharmacist: *Please review for potential replacement for e-prescription and drug interaction check*Not-Taking/PRN Fasenra Pen 30 MG/ML SOLUTION DIRECTED SUBCUTANEOUSLY EVERY 4 WEEKS X 3 THEN EVERY 8 WEEKS , Notes to Pharmacist: *Please review and pick correct strength-formulation from [employer] options. If intended option is not shown, discontinue and re-order from Quick Search*Not-Taking/PRN PROzac 10 MG Capsule 1 cap(s) orally once a day Not-Taking/PRN SIT (TRADITIONAL) VARIABLE SEE RECORD PER SCHEDULE SC PER SCHEDULE , Notes to Pharmacist: *Please review for potential replacement for e-prescription and drug interaction check* Objective: * Vitals: Assessment: * Assessment: 1. A llergic rhinitis due to pollen - J30.1 (Primary) 2 . A llergic rhinitis due to animal (cat) (dog) hair and dander - J30.81 3 . O ther allergic rhinitis - J30.89 4 . O ther chronic allergic conjunctivitis - H10.45 Plan: * Treatment: * Procedure Codes: 9 5117 IMMUNOTHERAPY INJECTIONS * Preventive Medicine: Counseling: E xercise A void heavy lifting on days of allergy immunotherapy. M edication instruction: I njectable epinephrine education and instruction w/ discussion of signs and symptoms of anaphylaxis and reasons to seek urgent or emergent care, Watch for side effects of prescribed medications. E ducation: A ble to return demonstration of self-injectable epinephrine. * Follow Up: 1 Week * Billing Information: * Visit Code: * Procedure Codes: 01781 IMMUNOTHERAPY INJECTIONS. * Sign off status: Completed true * Provider: Chapito Rosa MD Date: 0 01/24/2025 Generated for Dylan espinosa/Brandon/Cinthya on: 0 02/08/2025 02:15 PM CDT History and Physical Notes * HPI (History of Present Illness) Category Sub-Category Detail Notes Category Not es *Introduction The patient is here for scheduled immunotherapy. Please see the attached specialty form regarding the specifics of the administration of these vaccines. As per our protocol, they must undergo a screening health questionnaire (medication changes, reaction(s) to last immunotherapy dose(s), current health status, ACT (if appropriate), self-injectable epinephrine on patient(?) and peak flow (if appropriate)). Also, the patient must wait in our office for 30 minutes after receiving the vaccine(s). Furthermore, every patient must have an epinephrine pen (self-injectable) with them at the time of administration--and carry if for the following 1.5 hours after they leave our office. The patient must also have taken their antihistamine the day of the injection, preferably 2 hours prior. The consent form for SCIT (subcutaneous immunotherapy) is on file.
--- OUTSIDE RECORDS SUMMARY | 2025-02-08 14:16 | XMS_ITS ---
Author Organization [facility] Address [address] [place] [address] Care Team Providers Care Registration Specialist Name Role Phone Tal Ashley MD Primary Care Provider UnavailJose De Jesus White Unavailable [phone] Esvin Valle Unavailable Unavailable Aristeo Rosa Unavailable [phone] REASON FOR VISIT SCIT - Traditional Schedule Allergy immunotherapy Encounters Encounter Location Date Provider Diagnosis [facility] [address] [place] [address] 01/22/2025 Aristeo Rosa Allergic rhinitis du e to pollen J30.1 ; Allergic rhinitis due to animal (cat) (dog) hair and dander J30.81 ; Other allergic rhinitis J30.89 and Other chronic allergic conjunctivitis H10.45 Assessments Encounter Date Diagnosis (ICD Code) Assessment Notes Treatment Notes Treatment Clinical Notes Section Notes 01/22/2025 Allergic rhinitis due to pollen (ICD-10 - J30.1) 01/22/2025 Allergic rhinitis due to animal (cat) (dog) hair and dander (ICD-10 - J30.81) 01/22/2025 Other allergic rhinitis (ICD-10 - J30.89) 01/22/2025 Other chronic allergic conjunctivitis (ICD-10 - H10.45) Plan Of Treatment Next Appt Details Follow Up: 1 Week, Reason: Provider Name:Aristeo Rosa , 02/21/2025 04:50:00 PM, [address] [employer], [address], [place], [address], Provider Name:Aristeo Crane Moe , 03/08/2025 11:00:00 AM, [address] [facility], [facility] [address], [place], [address], Progress Notes * Ashlie DONALD MDOB: [birth year] (64 yo F)Acc No.[id number]:01/22/2025 SCIT-Aeroallergen Patient: Ashlie APONTE Provider: Chapito Rosa MD :1960 A ge:64 Y S ex:Female Date:01/22/2025 Address:[address] [place], [place] [id number] Pcp:Tal Ashley MD Subjective: * Chief Complaints: * 1 . SCIT - Traditional Schedule Allergy immunotherapy . * HPI: * Introduction: The patient is [...] immunotherapy) is on file. * Medical History: Objective: * Vitals: Assessment: * Assessment: 1. A llergic rhinitis due to pollen - J30.1 (Primary) 2 . A llergic rhinitis due to animal (cat) (dog) hair and dander - J30.81 3 . O ther allergic rhinitis - J30.89 4 . O ther chronic allergic conjunctivitis - H10.45 Plan: * Treatment: * Preventive Medicine: Counseling: E xercise A [...] Information: * Visit Code: * Procedure Codes: 84418 IMMUNOTHERAPY INJECTIONS. * Electronic signature of Patdary Rosa MD, FAAAAI on 02/08/2025 at 02:16 PM CDT Sign off status: Pending * Provider: Chapito Rosa MD Date: 0 01/22/2025 Generated for Ottoi jesús/Brandon/eTransmitting on: 0 02/08/2025 02:16 PM CDT History and Physical Notes * [...]
--- OUTSIDE RECORDS SUMMARY | 2025-02-08 14:16 | XMS_ITS | Patient Health Record ---
Author Organization [facility] Address [address] [place] [address] Care Team Providers Care Panel Maker Name Role Phone Tal Ashley MD Primary Care Provider Unavaila Jose De Jesus Villa Unavailable [phone] Esvin Valle Unavailable Unavailable Aristeo Rosa Unavailable [phone] Flavia Medina Unavailable [phone] Amy Cosme Unavailable [phone] [employer], Provider Unavailable Unavailab le Allergies No Known Allergies Results Component Value Reference Range Notes H. INFLUENZAE TYPE B AB Reviewed date:08/22/2024 11:27:49 AM Interpretation:Normal Performing Lab:EZ, [facility],, [address] [place], [address] Nieves Pandya MD,PhD,DAX Notes/Report: NON-FASTING HAEMOPHILUS INFLUENZA TYPE B ANTIBODY (IGG) >9.00 REFERENCE RANGE: > or = 1.00 mcg/mL INTERPRETIVE CRITERIA: <0.15 mcg/mL Nonprotective Antibody Level 0.15 - 0.99 mcg/mL Indeterminate for protective antibody > or = 1.00 mcg/mL Protective Antibody Level IgG antibody to polyribosylribitol phosphate (PRP), the capsular polysaccharide of Haemophilus influenzae type b, is measured in micrograms/mL (mcg/mL), based on correlations with a reference Viri radioimmunoprecipitation assay (ANUJ). The exact level of antibody needed for protection from infection has not been clarified; values ranging from 0.15 mcg/mL to 1.00 mcg/mL have been reported. A four-fold increase in the PRP IgG antibody level between pre-vaccination and post-vaccination sera is considered evidence of effective immunization. IMMUNOGLOBULINS G/A/M Reviewed date:04/17/2024 08:03:53 AM Interpretation:Normal Performing Lab:CARINE, [facility], [address] [place], [address] Samantha Sullivan MD Notes/Report: FASTING: YES FASTING:YES NON-FASTING; NON-FASTING; NON-FASTING IMMUNOGLOBULIN A 248 70-320 mg/dL IMMUNOGLOBULIN G 484 763-9743 mg/dL IMMUNOGLOBULIN M 124 50-300 mg/dL H. INFLUENZAE TYPE B AB Reviewed date:04/17/2024 08:05:38 AM Interpretation:Abnormal Performing Lab:SHANIQUA, [facility],, [address] [place], [address] Nieves Pandya MD,PhD,DAX Notes/Report: NON-FASTING; NON-FASTING; NON-FASTING FASTING:YES FASTING: YES HAEMOPHILUS INFLUENZA TYPE B ANTIBODY (IGG) <0.15 REFERENCE RANGE: > or = 1.00 mcg/mL INTERPRETIVE CRITERIA: <0.15 mcg/mL Nonprotective Antibody Level 0.15 - 0.99 mcg/mL Indeterminate for protective antibody > or = 1.00 mcg/mL Protective Antibody Level IgG antibody to polyribosylribitol phosphate (PRP), the capsular polysaccharide of Haemophilus influenzae type b, is measured in micrograms/mL (mcg/mL), based on correlations with a reference Viri radioimmunoprecipitation assay (ANUJ). The exact level of antibody needed for protection from infection has not been clarified; values ranging from 0.15 mcg/mL to 1.00 mcg/mL have been reported. A four-fold increase in the PRP IgG antibody level between pre-vaccination and post-vaccination sera is considered evidence of effective immunization. TETANUS ANTITOXOID Reviewed date:04/17/2024 08:03:40 AM Interpretation:Normal Performing Lab:EZ, [facility],, [address] [place], [address] Nieves Pandya MD,PhD,DAX Notes/Report: NON-FASTING; NON-FASTING; NON-FASTING FASTING:YES FASTING: YES TETANUS ANTITOXOID 1.49 REFERENCE RANGE: 0.10 IU/mL or greater Antibody levels > or = 0.10 IU/mL are considered protective. However, tetanus can still occur in some individuals with such antibody levels. These results should not be used to determine the necessity to administer antitoxin when clinically indicated. This test was developed and its analytical performance characteristics have been determined by [facility]. It has not been cleared or approved by FDA. This assay has been validated pursuant to the CLIA regulations and is used for clinical purposes. DIPHTHERIA ANTITOXOID Reviewed date:04/17/2024 08:03:28 AM Interpretation:Normal Performing Lab:, [facility],, [address] [place], [address] Nieves Pandya MD,PhD,DAX Notes/Report: NON-FASTING; NON-FASTING; NON-FASTING FASTING:YES FASTING: YES DIPHTHERIA ANTITOXOID 0.19 REFERENCE RANGE: 0.10 IU/mL or greater Interpretive Criteria <0.10 IU/mL Nonprotective Antibody Level > Or = 0.10 IU/mL Protective Antibody Level Antibody levels > or = 0.10 IU/mL are considered protective. After a primary series of three properly spaced diphtheria toxoid doses in adults or four doses in infants, a protective level of antitoxin (defined as > or = 0.10 IU of antitoxin/mL) is reached in more than 95% of immunized persons. This test was developed and its analytical performance characteristics have been determined by [facility]. It has not been cleared or approved by FDA. This assay has been validated pursuant to the CLIA regulations and is used for clinical purposes. S. PNEUMONIAE IGG AB, 23 SER OTYPES, S Reviewed date:04/17/2024 08:04:57 AM Interpretation:Abnormal Performing Lab:MY, [facility], [address] [place], [place], [address] Myriam Miller M.D. Ph.D. Notes/Report: NON-FASTING; NON-FASTING; NON-FASTING FASTING:YES FASTING: YES INTERPRETATION Evaluation of the immune response following pneumococcal vaccination can be assessed by measuring serotype-specific Streptococcus pneumonia IgG antibodies. Either of the following conditions is consistent with a normal response to Streptococcus pneumonia vaccination: 1. When comparing pre and post-vaccination samples, antibody concentrations increased by at least 2-fold for either >50% of serotypes in children <6 years of age or >70% of serotypes for individuals >6 years of age. 2. In either a pre- or post-vaccination sample, antibody concentrations >=1.0 mcg/mL for either >50% of serotypes for children <6 years of age or >70% of serotypes for individuals >6 years of age. Results >=1.0 mcg/mL or those showing a >=2-fold change are consistent with an immune response, but are not necessarily sufficient to provide protection against infection. ADDITIONAL INFORMATION This test was developed and its performance characteristics determined by [facility] in a manner consistent with CLIA requirements. This test has not been cleared or approved by the U.S. Food and Drug Administration. SEROTYPE 1 (1) 1.8 >=1.0 mcg/mL SEROTYPE 2 (2) 1.0 >=1.0 mcg/mL SEROTYPE 3 (3) <0.1 >=1.0 mcg/mL SEROTYPE 4 (4) <0.1 >=1.0 mcg/mL SEROTYPE 5 (5) 0.2 >=1.0 mcg/mL SEROTYPE 8 (8) 0.7 >=1.0 mcg/mL SEROTYPE 9N (9) 0.2 >=1.0 mcg/mL SEROTYPE 12F (12) 0.1 >=1.0 mcg/mL SEROTYPE 14 (14) 0.4 >=1.0 mcg/mL SEROTYPE 17F (17) 0.4 >=1.0 mcg/mL SEROTYPE 19F (19) 0.4 >=1.0 mcg/mL SEROTYPE 20 (20) 0.5 >=1.0 mcg/mL SEROTYPE 22F (22) 0.4 >=1.0 mcg/mL SEROTYPE 23F (23) 0.3 >=1.0 mcg/mL SEROTYPE 6B (26) 0.2 >=1.0 mcg/mL SEROTYPE 10A (34) 0.4 >=1.0 mcg/mL SEROTYPE 11A (43) 0.1 >=1.0 mcg/mL SEROTYPE 7F (51) 0.3 >=1.0 mcg/mL SEROTYPE 15B (54) 0.4 >=1.0 mcg/mL SEROTYPE 18C (56) 0.4 >=1.0 mcg/mL SEROTYPE 19A (57) 0.5 >=1.0 mcg/mL SEROTYPE 9V (68) 0.1 >=1.0 mcg/mL SEROTYPE 33F (70) 0.8 >=1.0 mcg/mL S. PNEUMONIAE IGG AB, 23 SER OTYPES, S Reviewed date:08/22/2024 11:28:58 AM Interpretation:Abnormal Performing Lab:SAKINA, [facility], [address] [place], [place], [address] Myriam Miller M.D. Ph.D. Notes/Report: NON-FASTING INTERPRETATION Evaluation of the immune response following pneumococcal vaccination can be assessed by measuring serotype-specific Streptococcus pneumonia IgG antibodies. Either of the following conditions is consistent with a normal response to Streptococcus pneumonia vaccination: 1. When comparing pre and post-vaccination samples, antibody concentrations increased by at least 2-fold for either >50% of serotypes in children <6 years of age or >70% of serotypes for individuals >6 years of age. 2. In either a pre- or post-vaccination sample, antibody concentrations >=1.0 mcg/mL for either >50% of serotypes for children <6 years of age or >70% of serotypes for individuals >6 years of age. Results >=1.0 mcg/mL or those showing a >=2-fold change are consistent with an immune response, but are not necessarily sufficient to provide protection against infection. ADDITIONAL INFORMATION This test was developed and its performance characteristics determined by [facility] in a manner consistent with CLIA requirements. This test has not been cleared or approved by the U.S. Food and Drug Administration. SEROTYPE 1 (1) 27.0 >=1.0 mcg/mL SEROTYPE 2 (2) 1.1 >=1.0 mcg/mL SEROTYPE 3 (3) 0.2 >=1.0 mcg/mL SEROTYPE 4 (4) 0.2 >=1.0 mcg/mL SEROTYPE 5 (5) 9.0 >=1.0 mcg/mL SEROTYPE 8 (8) 5.3 >=1.0 mcg/mL SEROTYPE 9N (9) 12.0 >=1.0 mcg/mL SEROTYPE 12F (12) 0.9 >=1.0 mcg/mL SEROTYPE 14 (14) 0.8 >=1.0 mcg/mL SEROTYPE 17F (17) 0.3 >=1.0 mcg/mL SEROTYPE 19F (19) 11.7 >=1.0 mcg/mL SEROTYPE 20 (20) 0.6 >=1.0 mcg/mL SEROTYPE 22F (22) 0.6 >=1.0 mcg/mL SEROTYPE 23F (23) 0.4 >=1.0 mcg/mL SEROTYPE 6B (26) 0.3 >=1.0 mcg/mL SEROTYPE 10A (34) 2.0 >=1.0 mcg/mL SEROTYPE 11A (43) 2.5 >=1.0 mcg/mL SEROTYPE 7F (51) 15.0 >=1.0 mcg/mL SEROTYPE 15B (54) 1.2 >=1.0 mcg/mL SEROTYPE 18C (56) 22.6 >=1.0 mcg/mL SEROTYPE 19A (57) 1.9 >=1.0 mcg/mL SEROTYPE 9V (68) 0.6 >=1.0 mcg/mL SEROTYPE 33F (70) 10.5 >=1.0 mcg/mL Reason For Referral No Information Medications Medication SIG (Take, Route, Frequency, Duration) Notes Start Date End Date Status AMLODIPINE 5 mg 1 tab(s) orally once a day Active Fasenra Pen 30 MG/ML DIRECTED SUBCUTANEOUSLY EVERY 4 WEEKS X 3 THEN EVERY 8 WEEKS for 30 DAYS *Please review and pick correct strength-formula tion from [facility] options. If intended option is not shown, discontinue and re-order from Quick Search* Not-Taking ALBUTEROL (EQV-PROAIR HFA) 90 mcg/inh 2 puff(s) inhaled every 6 hours Active PROzac 10 MG 1 cap(s) orally once a day Not-Taking MONTELUKAST 10 mg 1 tab(s) orally once a day Active TRELEGY ELLIPTA 200 mcg-62.5 mcg-25 mcg/inh 1 puff(s) inhaled once a day Active Trelegy Ellipta 200 MCG-62.5 MCG-25 MCG/INH 1 PUFF(S) INHALED ONCE A DAY *Please review and pick correct strength-formula tion from [facility] options. If intended option is not shown, discontinue and re-order from Quick Search* Active PRILOSEC OTC 20 mg 1 tab(s) orally once a day Active Azelastine HCl 137 MCG/SPRAY 2 spray(s) intranasally 2 times a day Active PROZAC 10 mg 1 cap(s) orally once a day Active Ipratropium-Albute rol 0.5-2.5 (3) MG/3ML 3 mL by nebulizer 4 times a day for 30 day(s) Active CALTRATE 600 + D 600 mg-20 mcg 1 tab(s) orally 2 times a day Active Omeprazole 20 MG 1 cap(s) orally once a day for 30 day(s) Active Mucinex 600 MG 1 tab(s) orally ever y 12 hours Active Rosuvastatin Calcium 10 MG 1 tab(s) orally once a day Active Gabapentin 300 MG 1 cap(s) orally 3 times a day takes 300mg at HS and 200mg in AM Active EpiPen 2-Anni 0.3 mg as directed intramuscularly once for 30 days Active ONE A DAY WOMEN'S COMPLETE MULTIPLE VITAMINS WITH MINERALS 1 TAB(S) ORALLY ONCE A DAY *Please review for potential replacement for e-prescription and drug interaction check* Active Cetirizine HCl 10 MG 1 tab(s) orally once a day Active PriLOSEC OTC 20 MG 1 tab(s) orally once a day Active Prolia 60 MG/ML as directed subcutaneously every 6 months Active SIT (TRADITIONAL) variable per schedule SC per schedule for to be determined Active EPIPEN 2-ANNI 0.3 mg as directed intramuscularly once for 30 days Active Tezspire 210 MG/1.91ML as directed Subcutaneous Active Pantoprazole Sodium 40 MG 1 tablet Orally Once a day Active Montelukast Sodium 10 MG 1 tab(s) orally once a day Active Amoxicillin-Pot Clavulanate 875-125 MG 1 tablet Orally twice a day for 7 days 10/30/2024 Active AZELASTINE NASAL 137 mcg/inh 2 spray(s) intranasally 2 times a day Active Doxycycline Hyclate 100 MG 1 capsule Orally Twice a day for 7 days 10/30/2024 Active FLUTICASONE NASAL 50 mcg/inh 1 spray(s) in each nostril once a day Active CETIRIZINE 10 mg 1 tab(s) orally once a day Active SIT (TRADITIONAL) VARIABLE PER SCHEDULE SC PER SCHEDULE for TO BE DETERMINED *Please review for potential replacement for e-prescription and drug interaction check* 07/19/2023 Not-Taking Immunizations Vaccine Route Administration Date Status Comme nts NOC PedvaxHIB IM Intramuscular 06/26/2024 Administered Social History Tobacco Use: Social History Observation Description Date Details (start date - stop date) Former Smoker NA - NA Smoking Smart Form: Question Answer Notes Are you a: former smoker How long it has been since you last smoked? > 10 years Tobacco Control (Standard) Question Answer Notes Tobacco use: Former smoker How long has it been since you last smoked? Grea ter than 10 years Problems Problem Type SNOMED Code ICD Code Onset Dates Problem Status W/U Status Risk Notes Problem Vitamin D deficiency (77564842) Vitamin D deficiency, unspecified (E55.9) Active confirmed Problem Chronic allergic conjunctivitis (52497693) Other chronic allergic conjunctivitis (H10.45) Active confirmed Problem Essential hypertension (73698241) Essential (primary) hypertension (I10) Active confirmed Problem Allergic rhinitis caused by pollen (disorder) (31120516) Allergic rhinitis due to pollen (J30.1) Active confirmed Problem Allergic rhinitis (00975376) Other allergic rhinitis (J30.89) Active confirmed Problem Uncomplicated severe persistent asthma (434198746) Severe persistent asthma, uncomplicated (J45.50) Active confirmed Problem Gastro-esophageal reflux disease without esophagitis (938566157) Gastro-esophageal reflux disease without esophagitis (K21.9) Active confirmed Problem History of pneumonia (290539444) Personal history of pneumonia (recurrent) (Z87.01) Active confirmed Problem Allergic rhinitis caused by animal hair and dander (010431689390291) Allergic rhinitis due to animal (cat) (dog) hair and dander (J30.81) Active confirmed Problem Acute severe exacerbation of severe persistent asthma (490839062) Severe persistent asthma with (acute) exacerbation (J45.51) Active confirmed Problem Malaise (311745935) Other malaise (R53.81) Active confirmed Problem Fatigue (00195194) Other fatigue (R53.83) Active confirmed Problem Abnormal weight gain (039054515) Abnormal weight gain (R63.5) Active confirmed Problem Chronic cough (96458319) Chronic cough (R05.3) Active confirmed Problem Eosinophilic asthma (827130882) Eosinophilic asthma (J82.83) Active confirmed Problem Chronic fatigue syndrome (disorder) (90096382) Chronic fatigue, unspecified (R53.82) Active confirmed Vital Signs Oximetry 98 % 02/07/2025 Blood pressure diastolic 90 mm Hg 02/07/2025 Height 62 in 02/07/2025 Blood pressure systolic 134 mm Hg 02/07/2025 Weight 147.0 lbs 10/30/2024 BMI 26.88 kg/m2 10/30/2024 Encounters Encounter Location Date Provider Diagnosis [facility] ([address]) [address] [place] [phone] 02/28/2024 Aristeo Rosa Chronic fatigue, unspecified R53.82 ; Other fatigue R53.83 ; Other malaise R53.81 and Abnormal weight gain R63.5 [facility] [place] ([address]) [address] [place] [phone] 03/15/2024 Aristeo Rosa Chronic fatigue, unspecified R53.82 ; Other fatigue R53.83 ; Other malaise R53.81 and Abnormal weight gain R63.5 [facility] [place] ([address]) [address] [place] [address] 04/03/2024 Aristeo Rosa Chronic fatigue, unspecified R53.82 ; Other fatigue R53.83 ; Other malaise R53.81 and Abnormal weight gain R63.[address] [address] 04/15/2024 Provider [facility] [place] ([address]) [address] [place] [address] 04/17/2024 Ariseto Rosa Chronic fatigue, unspecified R53.82 ; Other fatigue R53.83 ; Other malaise R53.81 and Abnormal weight gain R63.5 [facility] [address] [place] [phone] 12/06/2024 Flavia Medina [address] [address] 02/28/2024 Aristeo Rosa Allergic rhinitis du e to pollen J30.1 ; Allergic rhinitis due to animal (cat) (dog) hair and dander J30.81 ; Other allergic rhinitis J30.89 and Other chronic allergic conjunctivitis H10.45 [facility] [address] [place] [phone] 03/21/2024 Jose De Jesus Lozano Severe persistent asthma, uncomplicated J45.50 ; Eosinophilic asthma J82.83 ; Personal history of pneumonia (recurrent) Z87.01 ; Allergic rhinitis due to pollen J30.1 ; Allergic rhinitis due to animal (cat) (dog) hair and dander J30.81 ; Other chronic allergic conjunctivitis H10.45 ; Other allergic rhinitis J30.89 ; Chronic cough R05.3 ; Gastro-esophageal reflux disease without esophagitis K21.9 and Essential (primary) hypertension I10 [facility] [address] [place] [phone] 03/28/2024 Aristeo Rosa Allergic rhinitis du e to pollen J30.1 ; Allergic rhinitis due to animal (cat) (dog) hair and dander J30.81 ; Other allergic rhinitis J30.89 and Other chronic allergic conjunctivitis H10.[address] [address] 04/20/2024 Aristeo Rosa Allergic rhinitis du e to pollen J30.1 ; Allergic rhinitis due to animal (cat) (dog) hair and dander J30.81 ; Other allergic rhinitis J30.89 and Other chronic allergic conjunctivitis H10.[address] [address] 05/18/2024 Aristeo Rosa Allergic rhinitis du e to pollen J30.1 ; Allergic rhinitis due to animal (cat) (dog) hair and dander J30.81 ; Other allergic rhinitis J30.89 and Other chronic allergic conjunctivitis H10.45 [facility] [address] [place] [phone] 05/23/2024 Jose De Jesus Lozano Severe persistent asthma, uncomplicated J45.50 ; Eosinophilic asthma J82.83 ; Personal history of pneumonia (recurrent) Z87.01 ; Allergic rhinitis due to pollen J30.1 ; Allergic rhinitis due to animal (cat) (dog) hair and dander J30.81 ; Other chronic allergic conjunctivitis H10.45 ; Other allergic rhinitis J30.89 ; Chronic cough R05.3 ; Gastro-esophageal reflux disease without esophagitis K21.9 and Essential (primary) hypertension I10 [facility] [address] [place] [phone] 06/20/2024 Jose De Jesus Lozano Severe persistent asthma, uncomplicated J45.50 ; Eosinophilic asthma J82.83 ; Personal history of pneumonia (recurrent) Z87.01 ; Allergic rhinitis due to pollen J30.1 ; Allergic rhinitis due to animal (cat) (dog) hair and dander J30.81 ; Other chronic allergic conjunctivitis H10.45 ; Other allergic rhinitis J30.89 ; Chronic cough R05.3 ; Gastro-esophageal reflux disease without esophagitis K21.9 and Essential (primary) hypertension I10 [facility] [address] [place] [phone] 06/22/2024 Aristeo Rosa Allergic rhinitis du e to pollen J30.1 ; Allergic rhinitis due to animal (cat) (dog) hair and dander J30.81 ; Other allergic rhinitis J30.89 and Other chronic allergic conjunctivitis H10.45 [facility] [address] [place] [phone] 06/26/2024 Aristeo Rosa Encounter for immunization Z23 and Encounter for antibody response examination Z01.[address] [address] 07/18/2024 Amy Cosme Severe persistent asthma, uncomplicated J45.50 ; Eosinophilic asthma J82.83 ; Personal history of pneumonia (recurrent) Z87.01 ; Allergic rhinitis due to pollen J30.1 ; Allergic rhinitis due to animal (cat) (dog) hair and dander J30.81 ; Other chronic allergic conjunctivitis H10.45 ; Other allergic rhinitis J30.89 ; Chronic cough R05.3 ; Gastro-esophageal reflux disease without esophagitis K21.9 and Essential (primary) hypertension I10 [facility] [address] [place] [phone] 07/25/2024 Aristeo Moe Allergic rhinitis du e to pollen J30.1 ; Allergic rhinitis due to animal (cat) (dog) hair and dander J30.81 ; Other allergic rhinitis J30.89 and Other chronic allergic conjunctivitis H10.45 [facility] [address] [place] [phone] 08/15/2024 Jose De Jesus Lozano Severe persistent asthma, uncomplicated J45.50 ; Eosinophilic asthma J82.83 ; Personal history of pneumonia (recurrent) Z87.01 ; Allergic rhinitis due to pollen J30.1 ; Allergic rhinitis due to animal (cat) (dog) hair and dander J30.81 ; Other chronic allergic conjunctivitis H10.45 ; Other allergic rhinitis J30.89 ; Chronic cough R05.3 ; Gastro-esophageal reflux disease without esophagitis K21.9 and Essential (primary) hypertension I10 [facility] [address] [place] [phone] 08/23/2024 Aristeo Rosa Allergic rhinitis du e to pollen J30.1 ; Allergic rhinitis due to animal (cat) (dog) hair and dander J30.81 ; Other allergic rhinitis J30.89 and Other chronic allergic conjunctivitis H10.45 [facility] [address] [place] [phone] 09/12/2024 Amy Cosme Severe persistent asthma, uncomplicated J45.50 ; Eosinophilic asthma J82.83 ; Personal history of pneumonia (recurrent) Z87.01 ; Vitamin D deficiency, unspecified E55.9 ; Allergic rhinitis due to pollen J30.1 ; Allergic rhinitis due to animal (cat) (dog) hair and dander J30.81 ; Other chronic allergic conjunctivitis H10.45 ; Other allergic rhinitis J30.89 ; Chronic cough R05.3 ; Gastro-esophageal reflux disease without esophagitis K21.9 and Essential (primary) hypertension I10 [facility] [address] [place] [address] [employer] [address] [address] 10/09/2024 Aristeo Rosa Allergic rhinitis du e to pollen J30.1 ; Allergic rhinitis due to animal (cat) (dog) hair and dander J30.81 ; Other allergic rhinitis J30.89 and Other chronic allergic conjunctivitis H10.45 [facility] [address] [place] [phone] 10/16/2024 Aristeo Rosa Allergic rhinitis du e to pollen J30.1 ; Allergic rhinitis due to animal (cat) (dog) hair and dander J30.81 ; Other allergic rhinitis J30.89 and Other chronic allergic conjunctivitis H10.45 [facility] [address] [place] [phone] 10/30/2024 Jose De Jesus Lozano Severe persistent asthma, uncomplicated J45.50 ; Severe persistent asthma with (acute) exacerbation J45.51 ; Eosinophilic asthma J82.83 ; Personal history of pneumonia (recurrent) Z87.01 ; Vitamin D deficiency, unspecified E55.9 ; Allergic rhinitis due to pollen J30.1 ; Allergic rhinitis due to animal (cat) (dog) hair and dander J30.81 ; Other chronic allergic conjunctivitis H10.45 ; Other allergic rhinitis J30.89 ; Chronic cough R05.3 ; Gastro-esophageal reflux disease without esophagitis K21.9 and Essential (primary) hypertension I10 [facility] [address] [place] [phone] 11/13/2024 Aristeo Rosa Allergic rhinitis du e to pollen J30.1 ; Allergic rhinitis due to animal (cat) (dog) hair and dander J30.81 ; Other allergic rhinitis J30.89 and Other chronic allergic conjunctivitis H10.45 [facility] [address] [place] [address] [employer] [address] [address] 12/11/2024 Aristeo Rosa Allergic rhinitis du e to pollen J30.1 ; Allergic rhinitis due to animal (cat) (dog) hair and dander J30.81 ; Other allergic rhinitis J30.89 and Other chronic allergic conjunctivitis H10.45 [facility] [address] [place] [address] [phone] 12/18/2024 Aristeo Rosa Allergic rhinitis du e to pollen J30.1 ; Allergic rhinitis due to animal (cat) (dog) hair and dander J30.81 ; Other allergic rhinitis J30.89 and Other chronic allergic conjunctivitis H10.45 [facility] [address] [place] [phone] 12/28/2024 Aristeo Rosa Allergic rhinitis du e to pollen J30.1 ; Allergic rhinitis due to animal (cat) (dog) hair and dander J30.81 ; Other allergic rhinitis J30.89 and Other chronic allergic conjunctivitis H10.45 [facility] [address] [place] [phone] 01/24/2025 Aristeo Rosa Allergic rhinitis du e to pollen J30.1 ; Allergic rhinitis due to animal (cat) (dog) hair and dander J30.81 ; Other allergic rhinitis J30.89 and Other chronic allergic conjunctivitis H10.[address] [address] 02/07/2025 Aristeo Rosa Severe persistent asthma, uncomplicated J45.[address] [address] 06/20/2024 Jose De Jesus Lozano [address] [id number] 11/22/2024 Jose De Jesus Lozano [address] [id number] 11/28/2024 Jose De Jesus Lozano [address] [address] 01/03/2025 Jose De Jesus Lozano Assessments Encounter Date Diagnosis (ICD Code) Assessment Notes Treatment Notes Treatment Clinical Notes Section Notes 02/28/2024 Other fatigue (ICD-10 - R53.83) 02/28/2024 Chronic fatigue, unspecified (ICD-10 - R53.82) 02/28/2024 Allergic rhinitis due to pollen (ICD-10 - J30.1) 03/15/2024 Other fatigue (ICD-10 - R53.83) 03/15/2024 Chronic fatigue, unspecified (ICD-10 - R53.82) 03/21/2024 Severe persistent asthma, uncomplicated (ICD-10 - J45.50) Ashlie continues Trelegy daily. Ashlie's cough is likely multifactorial due to her history of asthma, atopic disease, and GERD. AEC returned at 365 we elected trial of Fasenra given clear repeat need for or steroids and lack of control on Trelelgy. Keep follow-up. We elected to continue with Fasenra today which was tolerated today without issue. Already feeling benefit. Had return of gurgling. Has been on multiple. If issues persist will consider switch to Nucala or Tezspire. Still with presistent low ACT at q 8 week dosing. Will assess how PI work-up goes first. Return in 2 months for dosing. Otherwise continue SCIT as above 03/21/2024 Eosinophilic asthma (ICD-10 - J82.83) The patient has a diagnosis of asthma with an eosinophilic phenotype. Since starting FASENRA the patient has had decreased healthcare utilization, improvement in asthma symptoms and decreased utilization of rescue (KIRILL) medications. The patient has also been compliant on FASENRA therapy FASENRA is not used for the relief of acute bronchospasm or status asthmaticus and is not used as dual therapy with another monoclonal antibody 03/28/2024 Allergic rhinitis due to pollen (ICD-10 - J30.1) 04/03/2024 Other fatigue (ICD-10 - R53.83) 04/03/2024 Chronic fatigue, unspecified (ICD-10 - R53.82) 04/17/2024 Other fatigue (ICD-10 - R53.83) 04/17/2024 Chronic fatigue, unspecified (ICD-10 - R53.82) 04/20/2024 Allergic rhinitis due to pollen (ICD-10 - J30.1) 05/18/2024 Allergic rhinitis due to pollen (ICD-10 - J30.1) 05/23/2024 Severe persistent asthma, uncomplicated (ICD-10 - J45.50) Ashlie continues Trelegy daily. Ashlie's cough is likely multifactorial due to her history of asthma, atopic disease, and GERD. AEC returned at 365 we elected trial of Fasenra given clear repeat need for or steroids and lack of control on Trelelgy. Given continued alfredo SOB and feelings of of gurgling resulting in multiple rounds of steroids, we elected to transition to Tezspire today. Procedure tolerated today without issue.Return in one month for dosing. Otherwise continue SCIT as above 05/23/2024 Eosinophilic asthma (ICD-10 - J82.83) Treat as above 06/20/2024 Severe persistent asthma, uncomplicated (ICD-10 - J45.50) Ashlie continues Trelegy daily. Ashlie's cough is likely multifactorial due to her history of asthma, atopic disease, and GERD. AEC returned at 365 we elected trial of Fasenra given clear repeat need for or steroids and lack of control on Trelelgy. Given continued alfredo SOB and feelings of of gurgling resulting in multiple rounds of steroids, we elected to transition to Tezspire last visit. Currenly feeling under the weather after getting Prevnar 20 last week. ACT = 14. Procedure tolerated today without issue. Return in one month for dosing. Otherwise continue SCIT as above 06/20/2024 Eosinophilic asthma (ICD-10 - J82.83) Treat as above 06/26/2024 Encounter for immunization (ICD-10 - Z23) 06/22/2024 Allergic rhinitis due to pollen (ICD-10 - J30.1) 07/18/2024 Severe persistent asthma, uncomplicated (ICD-10 - J45.50) Ashlie continues Trelegy daily. Ashlie's cough is likely multifactorial due to her history of asthma, atopic disease, and GERD. AEC returned at 365 we elected trial of Fasenra given clear repeat need for or steroids and lack of control on Trelegy. Given continued daily SOB and feelings of gurgling resulting in multiple rounds of steroids, we elected to transition to Tezspire. She presents today for her third dose. Overall feels her symptoms have improved slightly since starting Tezspire, though does admit to feeling run down today ACT is 16, mildly improved from 14 last visit. Procedure tolerated today without issue. Return in one month for dosing. Otherwise continue SCIT as below 07/25/2024 Allergic rhinitis due to pollen (ICD-10 - J30.1) 07/18/2024 Eosinophilic asthma (ICD-10 - J82.83) Treat as above 08/15/2024 Severe persistent asthma, uncomplicated (ICD-10 - J45.50) Ashlie continues Trelegy daily. Ashlie's cough is likely multifactorial due to her history of asthma, atopic disease, and GERD. AEC returned at 365 we elected trial of Fasenra given clear repeat need for or steroids and lack of control on Trelegy. Given continued daily SOB and feelings of gurgling resulting in multiple rounds of steroids, we elected to transition to Tezspire. Overall feels her symptoms have improved slightly since starting Tezspire. Procedure tolerated today without issue. Continues per GI as I beleive relfux is a large contributor to her syptoms. No active gurgling on PE today. Return in one month for dosing. Otherwise continue SCIT as below 08/23/2024 Allergic rhinitis due to pollen (ICD-10 - J30.1) 08/15/2024 Eosinophilic asthma (ICD-10 - J82.83) Treat as above 09/12/2024 Severe persistent asthma, uncomplicated (ICD-10 - J45.50) Ashlie continues Trelegy daily. Ashlie's cough is likely multifactorial due to her history of asthma, atopic disease, and GERD. AEC returned at 365 we elected trial of Fasenra given clear repeat need for or steroids and lack of control on Trelegy. Given continued daily SOB and feelings of gurgling resulting in multiple rounds of steroids, we elected to transition to Tezspire. Overall feels her symptoms have improved slightly since starting Tezspire. Procedure tolerated today without issue. Continues per GI as I beleive relfux is a large contributor to her syptoms. No active gurgling on PE today. Recently treated with steroids by her PCP following URI. Return in one month for dosing. Otherwise continue SCIT as below v 10/09/2024 Allergic rhinitis due to pollen (ICD-10 - J30.1) 10/16/2024 Allergic rhinitis due to pollen (ICD-10 - J30.1) 09/12/2024 Eosinophilic asthma (ICD-10 - J82.83) Treat as above v 10/30/2024 Severe persistent asthma, uncomplicated (ICD-10 - J45.50) Ashlie continues Trelegy daily. Ashlie's cough is likely multifactorial due to her history of asthma, atopic disease, and GERD. AEC returned at 365 we elected trial of Fasenra given clear repeat need for or steroids and lack of control on Trelegy. Given continued daily SOB and feelings of gurgling resulting in multiple rounds of steroids, we elected to transition to Tezspire. Overall feels her symptoms have improved slightly since starting Tezspire. Procedure tolerated today without issue. Continues per GI as I beleive relfux is a large contributor to her syptoms. Consider aspiration as a component. Return in one month for dosing. Otherwise continue SCIT as below v 10/30/2024 Severe persistent asthma with (acute) exacerbation (ICD-10 - J45.51) Currently, overcoming pneumonia confirmed via imaging per patient. Recently finished presumably azithromycin and is about to finish her 2nd round of steroids since . Clear rales and rhonchi still heard on PE, unclear if related to prior history of gurgling she reports is well controlled now. Historically speaking, I am wondering if there is potential of an aspiration pneumonia aspect to this. Regardless, per UTD guidelines, will treat with additional Augmentin and doxy given she just finished a X-pack. Advised urgent evaluation if symptoms worsen. Plan on rechecking S, pneumo titer in one month once off steroids to assist in accuracy of testing. Return in one month for E&M and Tezspire dosing v 11/13/2024 Allergic rhinitis due to pollen (ICD-10 - J30.1) 12/11/2024 Allergic rhinitis due to pollen (ICD-10 - J30.1) 12/18/2024 Allergic rhinitis due to pollen (ICD-10 - J30.1) 12/28/2024 Allergic rhinitis due to pollen (ICD-10 - J30.1) 01/24/2025 Allergic rhinitis due to pollen (ICD-10 - J30.1) 02/07/2025 Severe persistent asthma, uncomplicated (ICD-10 - J45.50) 01/24/2025 Allergic rhinitis due to animal (cat) (dog) hair and dander (ICD-10 - J30.81) 10/30/2024 Eosinophilic asthma (ICD-10 - J82.83) Treat as above v 12/28/2024 Allergic rhinitis due to animal (cat) (dog) hair and dander (ICD-10 - J30.81) 12/18/2024 Allergic rhinitis due to animal (cat) (dog) hair and dander (ICD-10 - J30.81) 12/11/2024 Allergic rhinitis due to animal (cat) (dog) hair and dander (ICD-10 - J30.81) 11/13/2024 Allergic rhinitis due to animal (cat) (dog) hair and dander (ICD-10 - J30.81) 10/16/2024 Allergic rhinitis due to animal (cat) (dog) hair and dander (ICD-10 - J30.81) 10/09/2024 Allergic rhinitis due to animal (cat) (dog) hair and dander (ICD-10 - J30.81) 09/12/2024 Personal history of pneumonia (recurrent) (ICD-10 - Z87.01) Recently treated for pneumonia with history of needing abx at let least once a year. Given this, we obtained modified PIDD work-up showing inadequate protection to Hib and S. pneumo. She has since obtained Pneumovax and HiB. Repeat labs show adequate protection to HiB, still inadequate to S. pneumo, though protection did increase from 11/23 to 07/24. Ashlie received Prevnar 20, due to this recommend Pneumovax with repeat titers in 4-6 weeks. Due to recent steroids recommend she wait 4 weeks to obtain this immunization v 08/23/2024 Allergic rhinitis due to animal (cat) (dog) hair and dander (ICD-10 - J30.81) 08/15/2024 Personal history of pneumonia (recurrent) (ICD-10 - Z87.01) Recently treated for pneumonia with history of needing abx at let least once a year. Given this, we obtained modified PIDD work-up showing inadequate protection to Hib and S. pneumo. She has since obtained Pneumovax and HiB. Awaiting labs to result 07/25/2024 Allergic rhinitis due to animal (cat) (dog) hair and dander (ICD-10 - J30.81) 07/18/2024 Personal history of pneumonia (recurrent) (ICD-10 - Z87.01) Recently treated for pneumonia with history of needing abx at let least once a year. Given this, we obtained modified PIDD work-up showing inadequate protection to Hib and S. pneumo. She has since obtained Pneumovax and HiB. Repeat lab orders sent last visit. Ashlie is aware to have labs drawn next week 06/22/2024 Allergic rhinitis due to animal (cat) (dog) hair and dander (ICD-10 - J30.81) 06/26/2024 Encounter for antibody response examination (ICD-10 - Z01.84) 06/20/2024 Personal history of pneumonia (recurrent) (ICD-10 - Z87.01) Recently treated for pneumonia with history of needing abx at let least once a year. Given this, we obtained modified PIDD work-up showing inadequate protection to Hib and S. pneumo. She has since obtained pneumovax with plan to obtain Hib booster later this month. Repeat labs sent today. Plan on obtaining repeat tieres 4-6 weeks after 05/23/2024 Personal history of pneumonia (recurrent) (ICD-10 - Z87.01) Recently treated for pneumonia with history of needing abx at let least once a year. Given this, we obtained modified PIDD work-up showing inadequate protection to Hib and S. pneumo. Advised obtaining pneumovax and Hib booster. Plan on obtaining repeat tieres 4-6 weeks after 05/18/2024 Allergic rhinitis due to animal (cat) (dog) hair and dander (ICD-10 - J30.81) 04/20/2024 Allergic rhinitis due to animal (cat) (dog) hair and dander (ICD-10 - J30.81) 04/17/2024 Other malaise (ICD-10 - R53.81) 04/03/2024 Other malaise (ICD-10 - R53.81) 03/28/2024 Allergic rhinitis due to animal (cat) (dog) hair and dander (ICD-10 - J30.81) 03/21/2024 Personal history of pneumonia (recurrent) (ICD-10 - Z87.01) Recently treated for pneumonia with history of needing abx at let least once a year. Given this, will obtian modified PIDD work-up. Plan on boosters based on results 03/15/2024 Other malaise (ICD-10 - R53.81) 02/28/2024 Allergic rhinitis due to animal (cat) (dog) hair and dander (ICD-10 - J30.81) 02/28/2024 Other malaise (ICD-10 - R53.81) 02/28/2024 Other allergic rhinitis (ICD-10 - J30.89) 02/28/2024 Abnormal weight gain (ICD-10 - R63.5) New GI symptoms, start Visbiome. 03/15/2024 Abnormal weight gain (ICD-10 - R63.5) New GI symptoms, start Visbiome. 03/21/2024 Allergic rhinitis due to pollen (ICD-10 - J30.1) Ashlie clearly suffers from atopic disease based upon our skin testing today. Accordingly, we have introduced a new, aggressive medication regimen, discussed nasal washes and allergy-specific avoidance measures. Recently completed cluster build-up; no on traditional schedule. Not due for dosing today. Keep AIE on hand 2 hours after SCIT. Continue to premedicate with Zyrtec prior to SCIT. Return per schedule for SCIT 03/28/2024 Other allergic rhinitis (ICD-10 - J30.89) 04/03/2024 Abnormal weight gain (ICD-10 - R63.5) New GI symptoms, start Visbiome. 04/17/2024 Abnormal weight gain (ICD-10 - R63.5) New GI symptoms, start Visbiome. 04/20/2024 Other allergic rhinitis (ICD-10 - J30.89) 05/18/2024 Other allergic rhinitis (ICD-10 - J30.89) 05/23/2024 Allergic rhinitis due to pollen (ICD-10 - J30.1) Ashlie clearly suffers from atopic disease based upon our skin testing today. Accordingly, we have introduced a new, aggressive medication regimen, discussed nasal washes and allergy-specific avoidance measures. Recently completed cluster build-up; no on traditional schedule. Not due for dosing today. Keep AIE on hand 2 hours after SCIT. Continue to premedicate with Zyrtec prior to SCIT. Return per schedule for SCIT 06/20/2024 Allergic rhinitis due to pollen (ICD-10 - J30.1) Ashlie clearly suffers from atopic disease based upon our skin testing today. Accordingly, we have introduced a new, aggressive medication regimen, discussed nasal washes and allergy-specific avoidance measures. Recently completed cluster build-up; no on traditional schedule. Not due for dosing today. Keep AIE on hand 2 hours after SCIT. Continue to premedicate with Zyrtec prior to SCIT. Return per schedule for SCIT 06/22/2024 Other allergic rhinitis (ICD-10 - J30.89) 07/18/2024 Allergic rhinitis due to pollen (ICD-10 - J30.1) Ashlie clearly suffers from atopic disease based upon our skin testing today. Accordingly, we have introduced a new, aggressive medication regimen, discussed nasal washes and allergy-specific avoidance measures. Recently completed cluster build-up; now on traditional schedule. Not due for dosing today. Keep AIE on hand 2 hours after SCIT. Continue to premedicate with Zyrtec prior to SCIT. Return per schedule for SCIT 07/25/2024 Other allergic rhinitis (ICD-10 - J30.89) 08/15/2024 Allergic rhinitis due to pollen (ICD-10 - J30.1) Ashlie clearly suffers from atopic disease based upon our skin testing today. Accordingly, we have introduced a new, aggressive medication regimen, discussed nasal washes and allergy-specific avoidance measures. Recently completed cluster build-up; now on traditional schedule. Not due for dosing today. Keep AIE on hand 2 hours after SCIT. Continue to premedicate with Zyrtec prior to SCIT. Return per schedule for SCIT 08/23/2024 Other allergic rhinitis (ICD-10 - J30.89) 09/12/2024 Vitamin D deficiency, unspecified (ICD-10 - E55.9) Rule out for immune work-up as above v 10/09/2024 Other allergic rhinitis (ICD-10 - J30.89) 10/16/2024 Other allergic rhinitis (ICD-10 - J30.89) 11/13/2024 Other allergic rhinitis (ICD-10 - J30.89) 10/30/2024 Personal history of pneumonia (recurrent) (ICD-10 - Z87.01) Recently treated for pneumonia with history of needing abx at let least once a year. Given this, we obtained modified PIDD work-up showing inadequate protection to Hib and S. pneumo. She has since obtained Pneumovax and HiB. Repeat labs show adequate protection to HiB, still inadequate to S. pneumo, though protection did increase from 11/23 to 07/24. Ashlie received Prevnar 20. She has since obtained Pneumovax. Due to recent steroids will wait one month to obtain repeat titers v 12/11/2024 Other allergic rhinitis (ICD-10 - J30.89) 12/18/2024 Other allergic rhinitis (ICD-10 - J30.89) 12/28/2024 Other allergic rhinitis (ICD-10 - J30.89) 01/24/2025 Other allergic rhinitis (ICD-10 - J30.89) 11/13/2024 Other chronic allergic conjunctivitis (ICD-10 - H10.45) 01/24/2025 Other chronic allergic conjunctivitis (ICD-10 - H10.45) 12/28/2024 Other chronic allergic conjunctivitis (ICD-10 - H10.45) 12/18/2024 Other chronic allergic conjunctivitis (ICD-10 - H10.45) 12/11/2024 Other chronic allergic conjunctivitis (ICD-10 - H10.45) 10/30/2024 Vitamin D deficiency, unspecified (ICD-10 - E55.9) Rule out for immune work-up as above v 10/16/2024 Other chronic allergic conjunctivitis (ICD-10 - H10.45) 10/09/2024 Other chronic allergic conjunctivitis (ICD-10 - H10.45) 09/12/2024 Allergic rhinitis due to pollen (ICD-10 - J30.1) Ashlie clearly suffers from atopic disease based upon our skin testing today. Accordingly, we have introduced a new, aggressive medication regimen, discussed nasal washes and allergy-specific avoidance measures. Recently completed cluster build-up; now on traditional schedule. Not due for dosing today. Keep AIE on hand 2 hours after SCIT. Continue to premedicate with Zyrtec prior to SCIT. Return per schedule for SCIT v 08/23/2024 Other chronic allergic conjunctivitis (ICD-10 - H10.45) 08/15/2024 Allergic rhinitis due to animal (cat) (dog) hair and dander (ICD-10 - J30.81) Follow allergen avoidance, meds and continue SCIT as an adjunctive treatment to current regimen. 07/25/2024 Other chronic allergic conjunctivitis (ICD-10 - H10.45) 07/18/2024 Allergic rhinitis due to animal (cat) (dog) hair and dander (ICD-10 - J30.81) Follow allergen avoidance, meds and continue SCIT as an adjunctive treatment to current regimen. 06/20/2024 Allergic rhinitis due to animal (cat) (dog) hair and dander (ICD-10 - J30.81) Follow allergen avoidance, meds and continue SCIT as an adjunctive treatment to current regimen. 06/22/2024 Other chronic allergic conjunctivitis (ICD-10 - H10.45) 05/23/2024 Allergic rhinitis due to animal (cat) (dog) hair and dander (ICD-10 - J30.81) Follow allergen avoidance, meds and continue SCIT as an adjunctive treatment to current regimen. 05/18/2024 Other chronic allergic conjunctivitis (ICD-10 - H10.45) 04/20/2024 Other chronic allergic conjunctivitis (ICD-10 - H10.45) 03/28/2024 Other chronic allergic conjunctivitis (ICD-10 - H10.45) 03/21/2024 Allergic rhinitis due to animal (cat) (dog) hair and dander (ICD-10 - J30.81) Follow allergen avoidance, meds and continue SCIT as an adjunctive treatment to current regimen. 02/28/2024 Other chronic allergic conjunctivitis (ICD-10 - H10.45) 03/21/2024 Other chronic allergic conjunctivitis (ICD-10 - H10.45) Given ocular signs and symptoms I encouraged allergy avoidance measures and meds as above. If symptoms persist, consider adding additional medications including intraocular antihistamine/mast cell stabilizer, PRN and continue SCIT as an adjunctive measure. See plan above, hold all antihistamines for 10-14 prior to next appointment. 06/20/2024 Other chronic allergic conjunctivitis (ICD-10 - H10.45) Given ocular signs and symptoms I encouraged allergy avoidance measures and meds as above. If symptoms persist, consider adding additional medications including intraocular antihistamine/mast cell stabilizer, PRN and continue SCIT as an adjunctive measure. See plan above, hold all antihistamines for 10-14 prior to next appointment. 05/23/2024 Other chronic allergic conjunctivitis (ICD-10 - H10.45) Given ocular signs and symptoms I encouraged allergy avoidance measures and meds as above. If symptoms persist, consider adding additional medications including intraocular antihistamine/mast cell stabilizer, PRN and continue SCIT as an adjunctive measure. See plan above, hold all antihistamines for 10-14 prior to next appointment. 07/18/2024 Other chronic allergic conjunctivitis (ICD-10 - H10.45) Given ocular signs and symptoms I encouraged allergy avoidance measures and meds as above. If symptoms persist, consider adding additional medications including intraocular antihistamine/mast cell stabilizer, PRN and continue SCIT as an adjunctive measure 08/15/2024 Other chronic allergic conjunctivitis (ICD-10 - H10.45) Given ocular signs and symptoms I encouraged allergy avoidance measures and meds as above. If symptoms persist, consider adding additional medications including intraocular antihistamine/mast cell stabilizer, PRN and continue SCIT as an adjunctive measure 09/12/2024 Allergic rhinitis due to animal (cat) (dog) hair and dander (ICD-10 - J30.81) Follow allergen avoidance, meds and continue SCIT as an adjunctive treatment to current regimen. v 10/30/2024 Allergic rhinitis due to pollen (ICD-10 - J30.1) Ashlie clearly suffers from atopic disease based upon our skin testing today. Accordingly, we have introduced a new, aggressive medication regimen, discussed nasal washes and allergy-specific avoidance measures. Recently completed cluster build-up; now on traditional schedule. Not due for dosing today. Keep AIE on hand 2 hours after SCIT. Continue to premedicate with Zyrtec prior to SCIT. Return per schedule for SCIT v 10/30/2024 Allergic rhinitis due to animal (cat) (dog) hair and dander (ICD-10 - J30.81) Follow allergen avoidance, meds and continue SCIT as an adjunctive treatment to current regimen. v 08/15/2024 Other allergic rhinitis (ICD-10 - J30.89) Follow allergen avoidance, meds and continue SCIT as an adjunctive treatment to current regimen 09/12/2024 Other chronic allergic conjunctivitis (ICD-10 - H10.45) Given ocular signs and symptoms I encouraged allergy avoidance measures and meds as above. If symptoms persist, consider adding additional medications including intraocular antihistamine/mast cell stabilizer, PRN and continue SCIT as an adjunctive measure v 07/18/2024 Other allergic rhinitis (ICD-10 - J30.89) Follow allergen avoidance, meds and continue SCIT as an adjunctive treatment to current regimen 06/20/2024 Other allergic rhinitis (ICD-10 - J30.89) Follow allergen avoidance, meds and continue SCIT as an adjunctive treatment to current regimen 05/23/2024 Other allergic rhinitis (ICD-10 - J30.89) Follow allergen avoidance, meds and continue SCIT as an adjunctive treatment to current regimen 03/21/2024 Other allergic rhinitis (ICD-10 - J30.89) Follow allergen avoidance, meds and continue SCIT as an adjunctive treatment to current regimen 03/21/2024 Chronic cough (ICD-10 - R05.3) Bernadines cough is likely multifactorial due to her history of asthma, atopic disease, and GERD. See plan above. 05/23/2024 Chronic cough (ICD-10 - R05.3) Danna cough is likely multifactorial due to her history of asthma, atopic disease, and GERD. See plan above. 06/20/2024 Chronic cough (ICD-10 - R05.3) Danna cough is likely multifactorial due to her history of asthma, atopic disease, and GERD. See plan above. 09/12/2024 Other allergic rhinitis (ICD-10 - J30.89) Follow allergen avoidance, meds and continue SCIT as an adjunctive treatment to current regimen v 08/15/2024 Chronic cough (ICD-10 - R05.3) Danna cough is likely multifactorial due to her history of asthma, atopic disease, and GERD. See plan above. 07/18/2024 Chronic cough (ICD-10 - R05.3) Danna cough is likely multifactorial due to her history of asthma, atopic disease, and GERD. See plan above. 10/30/2024 Other chronic allergic conjunctivitis (ICD-10 - H10.45) Given ocular signs and symptoms I encouraged allergy avoidance measures and meds as above. If symptoms persist, consider adding additional medications including intraocular antihistamine/mast cell stabilizer, PRN and continue SCIT as an adjunctive measure v 10/30/2024 Other allergic rhinitis (ICD-10 - J30.89) Follow allergen avoidance, meds and continue SCIT as an adjunctive treatment to current regimen v 09/12/2024 Chronic cough (ICD-10 - R05.3) Ashlie's cough is likely multifactorial due to her history of asthma, atopic disease, and GERD. See plan above. v 07/18/2024 Gastro-esophageal reflux disease without esophagitis (ICD-10 - K21.9) Ashlie reports occasional reflux symptoms Now on Protonix. Set to follow-up with her senior front end developer for further evaluation and management. 08/15/2024 Gastro-esophageal reflux disease without esophagitis (ICD-10 - K21.9) Ashlie reports occasional reflux symptoms Now on Protonix. Recently with bx, awaiting results. Continue per GI 06/20/2024 Gastro-esophageal reflux disease without esophagitis (ICD-10 - K21.9) Ashlie reports occasional reflux symptoms Now on Protonix. Set to follow-up with her senior front end developer for further evaluation and management. 05/23/2024 Gastro-esophageal reflux disease without esophagitis (ICD-10 - K21.9) Ashlie reports occasional reflux symptoms Now on Protonix. Set to follow-up with her senior front end developer for further evaluation and management. 03/21/2024 Gastro-esophageal reflux disease without esophagitis (ICD-10 - K21.9) Ashlie reports occasional reflux symptoms. Continue daily Prilosec. Again discussed scheduling a follow-up with her senior front end developer for further evaluation and management. 03/21/2024 Essential (primary) hypertension (ICD-10 - I10) BP today without symptoms of urgency or emergency. Continue serial checks and follow-up with PCP 05/23/2024 Essential (primary) hypertension (ICD-10 - I10) BP today without symptoms of urgency or emergency. Continue serial checks and follow-up with PCP 06/20/2024 Essential (primary) hypertension (ICD-10 - I10) BP today without symptoms of urgency or emergency. Continue serial checks and follow-up with PCP 07/18/2024 Essential (primary) hypertension (ICD-10 - I10) BP today without symptoms of urgency or emergency. Continue serial checks and follow-up with PCP 08/15/2024 Essential (primary) hypertension (ICD-10 - I10) BP today without symptoms of urgency or emergency. Continue serial checks and follow-up with PCP 09/12/2024 Gastro-esophageal reflux disease without esophagitis (ICD-10 - K21.9) Ashlie reports occasional reflux symptoms Now on Protonix. Recently with bx, awaiting results. Continue per GI v 10/30/2024 Chronic cough (ICD-10 - R05.3) Ashlie's cough is likely multifactorial due to her history of asthma, atopic disease, and GERD. See plan above. v 10/30/2024 Gastro-esophageal reflux disease without esophagitis (ICD-10 - K21.9) Ashlie reports occasional reflux symptoms Now on Protonix. Recently with bx, awaiting results. Continue per GI v 09/12/2024 Essential (primary) hypertension (ICD-10 - I10) BP normal today. Continue serial checks and follow-up with PCP v 10/30/2024 Essential (primary) hypertension (ICD-10 - I10) BP normal today. Continue serial checks and follow-up with PCP v 10/17/2024 Other v 03/21/2024 Other 05/23/2024 Other 06/20/2024 Other 07/18/2024 Other 08/15/2024 Other 09/12/2024 Other v 10/30/2024 Other v 02/07/2025 Other Plan Of Treatment Pending Test Test Name Order Date STREPTOCOCCUS PNEUMONIAE IGG AB (23 SERO TYPES) 03/21/2024 TETANUS ANTITOXOID ANTIBODY (EIA) 2023 DIPHTHERIA ANTITOXOID ANTIBODY VITAMIN D, 25-OH, TOTAL, IA 09/12/2024 HAEMOPHILUS INFLUENZAE B ANTIBODY, IGG 0 03/21/2024 HAEMOPHILUS INFLUENZAE B ANTIBODY, IGG 0 06/20/2024 CBC (INCLUDES DIFF/PLT) 02/22/2023 S. PNEUMONIAE IGG AB, 23 SEROTYPES, S Next Appt Details Provider Name:Aristeo HZeke Rosa , 02/21/2025 04:50:00 PM, [address] [employer], [address], [address], Provider Name:Aristeo HZeke Rosa , 03/08/2025 11:00:00 AM, [address] [employer], [address], [address], Insurance Providers Payer Name Payer Address Payer Phone Subscriber Number Group Number Insured Name Patient Relationship to Insured Coverage Start Date Coverage End Date [employer] Medicare [address] [address] [place] [address] [id number] Ashlie Donald Self - patient is the insured 4 Medical (General) History Medical History History ICD Code Hypertension Asthma Sleep apnea neuropathy Osteoporosis GERD Hypercholesterolemia Surgical History Surgery Date(Month/Year) Sinus Surgery 11/01/2004 Carpal Tunnel Surgery 11/01/1994 Foot Surgerys (3) 11/01/2014 Gallbladder Laparoscopy 11/01/2014 Broken & Dislocated Ankle 01/13/2022 Removal of plates in ankle 10/27/2022 Hospitalization History Reason Date(Month/Year) of daughter 11/13/1998 Pneumonia 11/01/2004
--- OUTSIDE RECORDS SUMMARY | 2025-02-08 14:16 | XMS_ITS ---
Author Organization [facility] Address [address] [place] [address] Care Team Providers Care Studio Hand Name Role Phone Tal Ashley MD Primary Care Provider UnavailJose De Jesus White Unavailable [phone] Esvin Valle Unavailable Unavailable Aristeo Rosa Unavailable [phone] REASON FOR VISIT Asthma w/o mention of status asthmaticus or acute exacerbation follow-up, TEZSPIRE administration scheduled today, Needs evaluation for pre-TEZSPIRE health questionaire to assess health status and medication review Medications Medication SIG (Take, Route, Frequency, Duration) Notes Start Date End Date Status AZELASTINE NASAL 137 mcg/inh 2 spray(s) intranasally 2 times a day Active FLUTICASONE NASAL 50 mcg/inh 1 spray(s) in each nostril once a day Active CETIRIZINE 10 mg 1 tab(s) orally once a day Active TRELEGY ELLIPTA 200 mcg-62.5 mcg-25 mcg/inh 1 puff(s) inhaled once a day Active SIT (TRADITIONAL) variable per schedule SC per schedule for to be determined Active AMLODIPINE 5 mg 1 tab(s) orally once a day Active ALBUTEROL (EQV-PROAIR HFA) 90 mcg/inh 2 puff(s) inhaled every 6 hours Active MONTELUKAST 10 mg 1 tab(s) orally once a day Active PROZAC 10 mg 1 cap(s) orally once a day Active CALTRATE 600 + D 600 mg-20 mcg 1 tab(s) orally 2 times a day Active Amoxicillin-Pot Clavulanate 875-125 MG 1 tablet Orally twice a day for 7 days 10/30/2024 Active Doxycycline Hyclate 100 MG 1 capsule Orally Twice a day for 7 days 10/30/2024 Active EpiPen 2-Chester 0.3 mg as directed intramuscularly once for 30 days Active SIT (TRADITIONAL) VARIABLE PER SCHEDULE SC PER SCHEDULE for TO BE DETERMINED *Please review for potential replacement for e-prescription and drug interaction check* 07/19/2023 Not-Taking PRILOSEC OTC 20 mg 1 tab(s) orally once a day Active Fasenra Pen 30 MG/ML DIRECTED SUBCUTANEOUSLY EVERY 4 WEEKS X 3 THEN EVERY 8 WEEKS for 30 DAYS *Please review and pick correct strength-formula tion from [employer] options. If intended option is not shown, discontinue and re-order from Quick Search* Not-Taking PROzac 10 MG 1 cap(s) orally once a day Not-Taking Azelastine HCl 137 MCG/SPRAY 2 spray(s) intranasally 2 times a day Active Ipratropium-Albute rol 0.5-2.5 (3) [...] review and pick correct strength-formula tion from [employer] options. If intended option is not shown, discontinue and re-order from Quick Search* Active Cetirizine HCl 10 MG 1 tab(s) orally once a day Active PriLOSEC OTC 20 MG 1 tab(s) orally once a day Active Prolia 60 MG/ML as directed subcutaneously every 6 months Active Pantoprazole Sodium 40 MG 1 tablet Orally Once a day Active Montelukast Sodium 10 MG 1 tab(s) orally once a day Active Tezspire 210 MG/1.91ML as directed Subcutaneous Active Vital Signs Blood pressure systolic 134 mm Hg 02/08/20 25 Blood pressure diastolic 90 mm Hg 025 Height 62 in 02/07/2025 Oximetry 98 % 02/07/2025 Encounters Encounter Location Date Provider Diagnosis [facility] [address] [facility] [address] [place] [address] 02/07/2025 Aristeo Moe Severe persistent asthma, uncomplicated J45.50 Assessments Encounter Date Diagnosis (ICD Code) Assessment Notes Treatment Notes Treatment Clinical Notes Section Notes 02/07/2025 Severe persistent asthma, uncomplicated (ICD-10 - J45.50) 02/07/2025 Other Plan Of Treatment Next Appt Details Follow Up: As scheduled for tezspire, Reason: Provider Name:Aristeo Crane Moe , 02/21/2025 04:50:00 PM, [address] [employer], [address], [address], Provider Name:Aristeo Rosa , 03/08/2025 11:00:00 AM, [address] [employer], [address], [place], [address], Procedure Notes * Category Sub-Category Detail Notes TEZSPIRE (tezepelumab-ekko) Administration Dosing Time / Vitals Cash Browne 02/07/2025 08:27:04 AM CDT >, See initial vitals Dose Concentration/Dosing : 210 mg (110 mg/mL) / 1.91 mL subcutaneous injection Location Cash Browne 025 08:27:25 AM CDT >, DANIEL Reaction None Frequency Interval:: Monthly Lot Number / Expiration Lot Number:[id number], Expiration:07/31/2026 Post-procedural check-out: Patent left w ithout vitals taken Medication Source TEZSPIRE Source: Buy and Bill Source Verification:: Who pu lled drug (please type staff name in notes)? january pulled drugking gave it to yolanda Medical necessity for in-off ice administration The patient or caregiver is not suitable, not competent or is physically unable to administer the TEZSPIRE product for the following reason(s):: patient or caregiver needs initial training on device Progress Notes * Ashlie DONALD MDOB: [birth year] (64 yo F)Acc No.[id number]:02/07/2025 TEZSPIRE Only Patient: Ashlie APONTE Provider: Chapito Rosa MD :1960 A ge:64 Y S ex:Female Date:02/07/2025 Address:[address] [place], [place] [address] Pcp:Tal Ashley MD Subjective: * Chief Complaints: * A sthma w/o mention of status asthmaticus or acute exacerbation follow-up, TEZSPIRE administration scheduled todayNeeds evaluation for pre-TEZSPIRE health questionaire to assess health status and medication review * HPI: * Introduction: The patient is here for scheduled immunotherapy with TEZSPIRE. Please see the attached specialty form regarding the specifics of the administration of this medication. As per our protocol, they must undergo a screening health questionnaire (medication changes, reaction(s) to last immunotherapy dose(s), current health status, ACT (if appropriate), self-injectable epinephrine on patient(?) and peak flow (if appropriate)). * Medical History: * Surgical History: * [...] *Please review and pick correct strength-formulation from [employer] options. If intended option is not shown, [...] *Please review and pick correct strength-formulation from [employer] options. If intended option is not shown, [...] *Please review and pick correct strength-formulation from Ce[employer] options. If intended option is not shown, [...] *Please review and pick correct strength-formulation from [employer] options. If intended option is not shown, discontinue and re-order from Quick Search*Not-Taking/PRN PROzac 10 MG Capsule 1 cap(s) orally once a day Not-Taking/PRN SIT (TRADITIONAL) VARIABLE SEE RECORD PER SCHEDULE SC PER SCHEDULE , Notes to Pharmacist: *Please review for potential replacement for e-prescription and drug interaction check* Objective: * Vitals: B P:134/90mm Hg, HR:83/min, Pulse Oximetry:98%, ACT:17, Ht: 62 in. Assessment: * Assessment: 1. S evere persistent asthma, uncomplicated - J45.50 (Primary) Plan: * Treatment: * Procedures: T EZSPIRE (tezepelumab-ekko) Administration: Dosing Time / Vitals H Cash phillip 02/07/2025 08:27:04 AM CDT >, See initial vitals. Dose C oncentration/Dosing 2 10 mg (110 mg/mL) / 1.91 mL subcutaneous injection Location H Cash phillip 02/07/2025 08:27:25 AM CDT >, DANIEL. Reaction N one. [facility] / Expiration L ot Number:[id number] , Expiration:07/31/2026. Post-procedural check-out: P atent left without vitals taken. Medication Source T EZSPIRE Source B uy and Bill Abril bingham Verification: W ho pulled drug (please type staff name in notes)? january pulled drug, king gave it to yolanda Medical necessity for in-office messenger T he patient or caregiver is not suitable, not competent or is physically unable to administer the TEZSPIRE product for the following reason(s):?patient or caregiver needs initial training on device * Procedure Codes: 9 6401 CHEMO, ANTI-NEOPL, [id number] TEZSPIRE 210 mg - 1 unit (1 mg), Units: 210.00 41489 PT-FOCUSED HLTH RISK ASSMT * Follow Up: A s scheduled for tezspire * Billing Information: * Visit Code: * Procedure Codes: 79618 CHEMO, ANTI-NEOPL, SQ/IM. J2356 TEZSPIRE 210 mg - 1 unit (1 mg). Units: 210.00. 86616 PT-FOCUSED HLTH RISK ASSMT. * Sign off status: Completed true * Provider: Chapito Rosa MD Date: 0 02/07/2025 Generated for Dylan espinosa/Brandon/Sondraitting on: 02/08/2025 02:16 PM CDT History and Physical Notes * HPI (History of Present Illness) Category Sub-Category Detail Notes Category Not es *Introduction The patient is here for scheduled immunotherapy with TEZSPIRE. Please see the attached specialty form regarding the specifics of the administration of this medication. As per our protocol, they must undergo a screening health questionnaire (medication changes, reaction(s) to last immunotherapy dose(s), current health status, ACT (if appropriate), self-injectable epinephrine on patient(?) and peak flow (if appropriate)).
--- NOTE | 2025-02-09 10:00 | WPDPFTINT ---
PFT Procedure Performed PFT Procedure Performed Spirometry with Pre/Post Bronchodilator Plethysmography (Lung Vol) Diffusing Cap (DLCO) Flow Vol Loop PFT Interpretation This is a pulmonary function test with pre and post-bronchodilator spirometry, plethysmography and diffusing capacity. The test was performed and results interpreted in accordance with the 2019 and 2005 ATS/ERS Task Force guidelines respectively using the Global Lung Function Initiative-2012 reference equations. Patient demonstrated good effort and cooperation. Reproducibility criteria were met. The quality of the pre bronchodilator spirometry maneuver was Grade A and post bronchodilator spirometry maneuver was Grade A. Findings: Spirometry: The contour the inspiratory and expiratory flow tracing are normal. The pre bronchodilator FVC is 3.79 L, 138% predicted. The pre bronchodilator FEV1 is 2.62 L, 121% predicted. The pre bronchodilator FEV1: FVC ratio 69%. The post bronchodilator FVC is 3.63 L, representing a 4% decrease. The post bronchodilator FEV1 is 2.62 L, representing no change. The post bronchodilator FEV1: FVC ratio is 72%. Plethysmography: The total lung capacity 5.04 L, 107% predicted. The functional residual capacity is 1.52 L, 57% predicted. The residual volume is 1.25 L, 63% predicted. Diffusing capacity: The diffusing capacity unadjusted for hemoglobin and carboxyhemoglobin is 15.6, 78% predicted. The diffusing capacity adjusted for alveolar volume is 3.28, 74% predicted. In comparison to previous pulmonary function test on 12/02/2023 the post bronchodilator FVC is unchanged from 3.70 L to 3.63 L. The post bronchodilator FEV1 is increased from 2.22 L to 2.62 L. The total lung capacity is unchanged from 5.64 L to 5.04 L. The functional residual capacity is decreased from 2.31 L to 1.52 L. The residual volume is decreased from 1.88 L to 1.25 L. The diffusing capacity unadjusted for hemoglobin and carboxyhemoglobin is unchanged from 15.3 to 15.6. The diffusing capacity adjusted for alveolar volume is unchanged from 3.26 to 3.28. Impression: The spirometry is normal without evidence of an obstructive abnormality. The FVC is increased. There is no significant improvement after inhaling a single dose of albuterol. The total lung capacity is normal with a decreased functional residual capacity and residual volume. This is an abnormal but nonspecific lung volume pattern. The diffusing capacity is normal. In comparison to previous pulmonary function testing on 12/02/2023 there has been greater than anticipated time dependent increase in the FVC. There has been a greater than anticipated time dependent decrease in the functional residual capacity and residual volume with no significant change in the FEV1, total lung capacity, or diffusing capacity. Clinical correlation is recommended.
== END 2025-02-08 13:43 | disposition home or self-care (01) ==
PROVIDERS: PCP Family Medicine; Visit Provider Internal Medicine Pulmonary Disease
DX: J45.909 Unspecified asthma, uncomplicated (principal)
CPT/HCPCS: 94060; 94726; 94729

== ENCOUNTER 2025-03-28 13:38 | Outpatient (CLI) | payer MEDICARE, SELFPAY ==
--- OUTSIDE RECORDS SUMMARY | 2025-03-28 13:45 | XMS_ITS | Clinical Summary ---
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 Gender Identity Not on file Sexual Orientation Not on file Obstetrics History Last Filed Vital Signs Vital Sign Reading Time Taken Comments Blood Pressure - - Pulse - - Temperature - - Respiratory Rate - - Oxygen Saturation - - Inhaled Oxygen Concentration - - Weight 71.7 kg (158 lb 0.1 oz) 05/24/2013 1:20 P M CDT Height 160 cm (5' 3) 05/24/2013 1:20 PM CDT Body Mass Index 27.99 05/24/2013 1:20 PM CDT Plan of Treatment Not on file Insurance [employer] [facility] HMO Care Teams Message Broker Developer Relationship Specialty Start Date End Date Tal Ashley MD [address] [facility] [address] [place] [address] PCP - General Family Medicine 10/14/20
--- OUTSIDE RECORDS SUMMARY | 2025-03-28 13:45 | XMS_ITS ---
Author Organization [facility] [employer] [place] ([address]) Address [address] [place] [address] Care Team Providers Care Title Curative Specialist Name Role Phone Tal Ashley MD Primary Care Provider UnavailJose De Jesus White Unavailable [phone] Esvin Valle Unavailable Unavailable Aristeo Rosa Unavailable [phone] REASON FOR VISIT SCIT - Traditional Schedule [...] as directed subcutaneously every 6 months Active Doxycycline Hyclate 100 MG 1 capsule Orally Twice a day for 7 days Active SIT (TRADITIONAL) variable per schedule SC per schedule for to be determined Active Tezspire 210 MG/1.91ML as directed Subcutaneous Active Amoxicillin-Pot Clavulanate 875-125 MG 1 tablet Orally twice a day for 7 days Active CETIRIZINE 10 mg 1 tab(s) orally once a day Active AZELASTINE NASAL 137 mcg/inh 2 spray(s) intranasally 2 times a day Active ALBUTEROL (EQV-PROAIR HFA) 90 mcg/inh 2 puff(s) inhaled every 6 hours Active MONTELUKAST 10 mg 1 tab(s) orally once a day Active TRELEGY ELLIPTA 200 mcg-62.5 mcg-25 mcg/inh 1 puff(s) inhaled once a day Active FLUTICASONE NASAL 50 mcg/inh 1 spray(s) in each nostril once a day Active AMLODIPINE 5 mg 1 tab(s) orally once a day Active EpiPen 2-Chester 0.3 mg as directed intramuscularly once for 30 days Active PRILOSEC OTC 20 mg 1 tab(s) orally once a day Active PROZAC 10 mg 1 cap(s) orally once a day Active CALTRATE 600 + D 600 mg-20 mcg 1 tab(s) orally 2 times a day Active Ipratropium-Albute rol 0.5-2.5 (3) MG/3ML 3 mL by nebulizer 4 times a day for 30 day(s) Active Omeprazole 20 MG 1 cap(s) orally once a day for 30 day(s) Active Fasenra Pen 30 MG/ML DIRECTED SUBCUTANEOUSLY EVERY 4 WEEKS X 3 THEN EVERY 8 WEEKS for 30 DAYS *Please review and pick correct strength-formula tion from [employer] options. If intended option is not shown, discontinue and re-order from Quick Search* Not-Taking PROzac 10 MG 1 cap(s) orally once a day Not-Taking SIT (TRADITIONAL) VARIABLE PER SCHEDULE SC PER SCHEDULE for TO BE DETERMINED *Please review for potential replacement for e-prescription and drug interaction check* 07/19/2023 Not-Taking Azelastine HCl 137 MCG/SPRAY 2 spray(s) intranasally 2 times a day Active Rosuvastatin Calcium 10 MG 1 tab(s) [...] review and pick correct strength-formula tion from [employer] options. If intended option is not shown, discontinue and re-order from Quick Search* Active Mucinex 600 MG 1 tab(s) orally ever y 12 hours Active Encounters Encounter Location Date Provider Diagnosis [facility] [address] [facility] [address] [place] [address] 03/27/2025 Aristeo Rosa Allergic rhinitis du e to pollen J30.1 ; Allergic rhinitis due to animal (cat) (dog) hair and dander J30.81 ; Other allergic rhinitis J30.89 and Other chronic allergic conjunctivitis H10.45 Assessments Encounter Date Diagnosis (ICD Code) Assessment Notes Treatment Notes Treatment Clinical Notes Section Notes 03/27/2025 Allergic rhinitis due to pollen (ICD-10 - J30.1) 03/27/2025 Allergic rhinitis due to animal (cat) (dog) hair and dander (ICD-10 - J30.81) 03/27/2025 Other allergic rhinitis (ICD-10 - J30.89) 03/27/2025 Other chronic allergic conjunctivitis (ICD-10 - H10.45) Plan Of Treatment Next Appt Details Follow Up: 1 Week, Reason: Provider Name:Aristeo Rosa , 04/05/2025 12:30:00 PM, [address] [employer], [address], [address], Provider Name:Aristeo Rosa , 04/24/2025 11:00:00 AM, [employer] [facility], [address], [address], Provider Name:Aristeo Rosa , 05/03/2025 01:00:00 PM, [facility], [address], [address], Progress Notes * Ashlie DONALD MDOB: [birth year] (64 yo F)Acc No.[id number]:03/27/2025 SCIT-Aeroallergen Patient: Nabeel Ashlie GOMEZ Provider: Chapito Rosa MD :1960 A ge:64 Y S ex:Female Date:03/27/2025 Address:[address] [place], [place] [id number] Pcp:Tal Ashley MD Subjective: * Chief Complaints: [...] tablet 1 tab(s) orally once a day EpiPen 2-Chester 0.3 mg kit as directed intramuscularly once SIT (TRADITIONAL) variable see record per schedule SC per schedule Tezspire 210 MG/1.91ML Solution Prefilled Syringe as directed Subcutaneous Amoxicillin-Pot Clavulanate 875-125 MG Tablet 1 tablet Orally twice a day Doxycycline Hyclate 100 MG Capsule 1 capsule Orally Twice a day Pantoprazole Sodium 40 MG Tablet Delayed Release [...] *Please review and pick correct strength-formulation from [employer] options. If intended option is not shown, discontinue and re-order from Quick Search*Azelastine HCl 137 MCG/SPRAY Solution 2 spray(s) intranasally 2 times a day Ipratropium-Albuterol 0.5-2.5 (3) MG/3ML Solution 3 mL by nebulizer 4 times a day Omeprazole 20 MG Capsule Delayed Release 1 cap(s) orally once a day Taking EpiPen 2-Chester 0.3 mg [...] 1 tab(s) orally once a day Taking EpiPen 2-Chester 0.3 mg kit as directed intramuscularly once Taking SIT (TRADITIONAL) variable see record per schedule SC per schedule Taking Tezspire 210 MG/1.91ML Solution Prefilled Syringe as directed Subcutaneous Taking Amoxicillin-Pot Clavulanate 875-125 MG Tablet 1 tablet Orally twice a day Taking Doxycycline Hyclate 100 MG Capsule 1 capsule Orally Twice a day Taking Pantoprazole Sodium 40 MG Tablet Delayed [...] *Please review and pick correct strength-formulation from [employer] options. If intended option is not shown, discontinue and re-order from Quick Search*Taking Azelastine HCl 137 MCG/SPRAY Solution 2 spray(s) intranasally 2 times a day Taking Ipratropium-Albuterol 0.5- 2.5 (3) MG/3ML Solution 3 mL by nebulizer 4 times a day Taking Omeprazole 20 MG Capsule Delayed Release 1 cap(s) orally once a day Not-Taking/PRNFasenra Pen 30 MG/ML SOLUTION DIRECTED SUBCUTANEOUSLY EVERY 4 WEEKS X 3 THEN EVERY 8 WEEKS , Notes to Pharmacist: *Please review and pick correct strength-formulation from [employer] options. If intended option is not shown, discontinue and re-order from Quick Search*PROzac 10 MG Capsule 1 cap(s) orally once a day SIT (TRADITIONAL) VARIABLE SEE RECORD PER SCHEDULE SC PER SCHEDULE , Notes to Pharmacist: *Please review for potential replacement for e-prescription and drug interaction check*Not- Taking/PRN Fasenra Pen 30 MG/ML SOLUTION DIRECTED SUBCUTANEOUSLY EVERY 4 WEEKS X 3 THEN EVERY 8 WEEKS , Notes to Pharmacist: *Please review and pick correct strength- formulation from [employer] options. If intended option is not shown, [...] Information: * Visit Code: * Procedure Codes: 65731 IMMUNOTHERAPY INJECTIONS. * Sign off status: Completed true * Provider: Chapito Rosa MD Date: 03/27/2025 Generated for Dylan espinosa/Brandon/Cinthya on: 03/28/2025 01:45 PM CDT History and Physical Notes * [...]
--- OUTSIDE RECORDS SUMMARY | 2025-03-28 13:45 | XMS_ITS ---
Author Organization [employer] [facility] [employer] [facility] [employer] [place] ([address]) Address [address] [place] [address] Care Team Providers Care Practice Consultant Name Role Phone Tal Ashley MD Primary Care Provider Unavaila Jose De Jesus Villa Unavailable [phone] Esvin Valle Unavailable Unavailable Aristeo Rosa Unavailable [phone] REASON FOR VISIT Sees MARIA ESTHER Vidal for asthma management - continues on Trelegy and KIRILL, AEC = 365. Was on Fasenrawith clear benefit though with KIRILL use 2-3 times a week, also with complaints of daily episodes ofSOB. Switched to Tezspire, ACT = 7 citing overcoming pneumonia currently, ARC follow-up: Continues allergy avoidance, on meds, Continues on SCIT with improvement in upper airway symptoms., History ofGERD, managed by GI - recently with bx, awaiting results, History of recurrent pneumonia infections. s/p PI work-up showing inadequate protection to Hib and S. pneumo, Now S/p boosters, HiB protection now normal, S. pneumo remains inadequate. Medications Medication SIG (Take, Route, Frequency, Duration) Notes Start Date End Date Status ONE A DAY WOMEN'S COMPLETE MULTIPLE VITAMINS WITH MINERALS 1 TAB(S) ORALLY ONCE A DAY *Please review for potential replacement for e-prescription and drug interaction check* Active Trelegy Ellipta 200 MCG-62.5 MCG-25 MCG/INH 1 PUFF(S) INHALED ONCE A DAY *Please review and pick correct strength-formula tion from [employer] options. If intended option is not shown, discontinue and re-order from Quick Search* Active Rosuvastatin Calcium 10 MG 1 tab(s) orally once a day Active Gabapentin 300 MG 1 cap(s) orally 3 times a day takes 300mg at HS and 200mg in AM Active Mucinex 600 MG 1 tab(s) orally ever y 12 hours Active Prolia 60 MG/ML as directed subcutaneously every 6 months Active Cetirizine HCl 10 MG 1 tab(s) orally once a day Active PriLOSEC OTC 20 MG 1 tab(s) orally once a day Active Pantoprazole Sodium 40 MG 1 tablet Orally Once a day Active Montelukast Sodium 10 MG 1 tab(s) orally once a day Active SIT (TRADITIONAL) VARIABLE PER SCHEDULE SC PER SCHEDULE for TO BE DETERMINED *Please review for potential replacement for e-prescription and drug interaction check* 07/19/2023 Not-Taking Doxycycline Hyclate 100 MG 1 capsule Orally Twice a day for 7 days Active Amoxicillin-Pot Clavulanate 875-125 MG 1 tablet Orally twice a day for 7 days Active Fasenra Pen 30 MG/ML DIRECTED SUBCUTANEOUSLY EVERY 4 WEEKS X 3 THEN EVERY 8 WEEKS for 30 DAYS *Please review and pick correct strength-formula tion from [employer] options. If intended option is not shown, discontinue and re-order from Quick Search* Not-Taking PROzac 10 MG 1 cap(s) orally once a day Not-Taking Tezspire 210 MG/1.91ML as directed Subcutaneous Active FLUTICASONE NASAL 50 mcg/inh 1 spray(s) in each nostril once a day Active EPIPEN 2-ANNI 0.3 mg as directed intramuscularly once for 30 days Active CETIRIZINE 10 mg 1 tab(s) orally once a day Active SIT (TRADITIONAL) variable per schedule SC per schedule for to be determined Active ALBUTEROL (EQV-PROAIR HFA) 90 mcg/inh 2 puff(s) inhaled every 6 hours Active AMLODIPINE 5 mg 1 tab(s) orally once a day Active AZELASTINE NASAL 137 mcg/inh 2 spray(s) intranasally 2 times a day Active TRELEGY ELLIPTA 200 mcg-62.5 mcg-25 mcg/inh 1 puff(s) inhaled once a day Active MONTELUKAST 10 mg 1 tab(s) orally once a day Active CALTRATE 600 + D 600 mg-20 mcg 1 tab(s) orally 2 times a day Active PROZAC 10 mg 1 cap(s) orally once a day Active EpiPen 2-Anni 0.3 mg as directed intramuscularly once for 30 days Active PRILOSEC OTC 20 mg 1 tab(s) orally once a day Active Omeprazole 20 MG 1 cap(s) orally once a day for 30 day(s) Active Ipratropium-Albute rol 0.5-2.5 (3) MG/3ML 3 mL by nebulizer 4 times a day for 30 day(s) Active Azelastine HCl 137 MCG/SPRAY 2 spray(s) intranasally 2 times a day Active Encounters Encounter Location Date Provider Diagnosis [facility] [address] [place] [address] 03/08/2025 Aristeo Moe Severe persistent asthma, uncomplicated J45.50 ; Severe [...] esophagitis K21.9 and Essential (primary) hypertension I10 Assessments Encounter Date Diagnosis (ICD Code) Assessment Notes Treatment Notes Treatment Clinical Notes Section Notes 03/08/2025 Severe persistent asthma, uncomplicated (ICD-10 - J45.50) [...] dosing. 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 Return per schedule for SCIT v 03/08/2025 Allergic rhinitis due to animal (cat) (dog) hair and dander (ICD-10 - J30.81) Follow allergen avoidance, meds and continue SCIT as an adjunctive treatment to current regimen. v 03/08/2025 Other chronic allergic conjunctivitis (ICD-10 - H10.45) Given ocular signs and symptoms I encouraged allergy avoidance measures and meds as above. If symptoms persist, consider adding additional medications including intraocular antihistamine/mast cell stabilizer, PRN and continue SCIT as an adjunctive measure v 03/08/2025 Other allergic rhinitis (ICD-10 - J30.89) Follow allergen avoidance, meds and continue SCIT as an adjunctive treatment to current regimen v 03/08/2025 Chronic cough (ICD-10 - R05.3) Ashlie's cough is likely multifactorial due to her history of asthma, atopic disease, and GERD. See plan above. v 03/08/2025 Gastro-esophageal reflux disease without esophagitis (ICD-10 - K21.9) Ashlie reports occasional reflux symptoms Now on Protonix. Recently with bx, awaiting results. Continue per GI v 03/08/2025 Essential (primary) hypertension (ICD-10 - I10) BP normal today. Continue serial checks and follow-up with PCP v 03/08/2025 Other v Plan Of Treatment Medication Medication Name Sig Start Date Stop Date Notes Doxycycline Hyclate 100 MG 1 capsule Ora lly Twice a day for 7 days Amoxicillin-Pot Clavulanate 875-125 MG 1 tablet Orally twice a day for 7 days Tezspire 210 MG/1.91ML as directed Subcutaneous FLUTICASONE NASAL 50 mcg/inh 1 spray(s) in each nostril once a day EPIPEN 2-ANNI 0.3 mg as directed intramus cularly once for 30 days CETIRIZINE 10 mg 1 tab(s) orally once a day SIT (TRADITIONAL) variable per schedule SC per schedule for to be determined ALBUTEROL (EQV-PROAIR HFA) 90 mcg/inh 2 puff(s) inhaled every 6 hours AMLODIPINE 5 mg 1 tab(s) orally once a day AZELASTINE NASAL 137 mcg/inh 2 spray(s) intranasally 2 times a day TRELEGY ELLIPTA 200 mcg-62.5 mcg-25 mcg/inh 1 puff(s) inhaled once a day MONTELUKAST 10 mg 1 tab(s) orally once a day CALTRATE 600 + D 600 mg-20 mcg 1 tab(s) orally 2 times a day PROZAC 10 mg 1 cap(s) orally once a day PRILOSEC OTC 20 mg 1 tab(s) orally once a day Treatment Notes Assessment Notes Severe persistent asthma, uncomplicated Ashlie continues Trelegy daily. Ashlie's cough is [...] for dosing. Otherwise continue SCIT as below Severe persistent asthma wit h (acute) exacerbation Currently, overcoming pneumonia confirme d via imaging per patient. Recently finished presumably [...] one month for E&M and Tezspire dosing Eosinophilic asthma Treat as above Personal history of pneumonia (recurrent ) Recently treated for pneumonia with history of [...] wait one month to obtain repeat titers Vitamin D deficiency, unspecified Rule o ut for immune work-up as above Allergic rhinitis due to pollen Ashlie clearly suffers from atopic disease based upon our skin testing today. Accordingly, we have introduced a new, aggressive medication regimen, discussed nasal washes and allergy-specific avoidance measures. Recently completed cluster build-up; now on traditional schedule. Not due for dosing today. Keep AIE on hand 2 hours after SCIT. Continue to premedicate with Zyrtec prior to SCIT. Return per schedule for SCIT Allergic rhinitis due to ani mal (cat) (dog) hair and dander Follow allergen avoidance, meds and continue SCIT as an adjunctive treatment to current regimen. Other chronic allergic conjunctivitis Gi kenroy ocular signs and symptoms I encouraged allergy avoidance measures and meds as above. If symptoms persist, consider adding additional medications including intraocular antihistamine/mast cell stabilizer, PRN and continue SCIT as an adjunctive measure Other allergic rhinitis Follow allergen avoidance, meds and continue SCIT as an adjunctive treatment to current regimen Chronic cough Bernadines cough is l ikely multifactorial due to her history of asthma, atopic disease, and GERD. See plan above. Gastro-esophageal reflux dis ease without esophagitis Ashlie reports occasional reflux sympto ms Now on Protonix. Recently with bx, awaiting results. Continue per GI Essential (primary) hypertension BP norm al today. Continue serial checks and follow-up with PCP Next Appt Details Follow Up: 4 Weeks, as sched hortencia, Reason: Evaluation and Management, TEZSPIRE Administration, SCIT Provider Name:Aristeo Rosa , 04/05/2025 12:30:00 PM, [address], [place], [address], Provider Name:Aristeo Rosa , 04/24/2025 11:00:00 AM, [address], [place], [address], Provider Name:Aristeo Rosa , 05/03/2025 01:00:00 PM, [address], [place], [address], Progress Notes * Ashlie DONALD MDOB: [birth year] (64 yo F)Acc No.[id number]:03/08/2025 TEZSPIRE Adiministration Vis it Patient: Ashlie APONTE Provider: Chapito Rosa MD :1960 A ge:64 Y S ex:Female Date:03/08/2025 Address:[address] [place], [place] [id number] Pcp:Tal Ashley MD Subjective: * Chief Complaints: * 1 . Sees MARIA ESTHER Vidal for asthma management - continues on Trelegy and KIRILL, AEC = 365. Was on Fasenra with clear benefit though with KIRILL use 2-3 times a week, also with complaints of daily episodes of SOB. Switched to Tezspire, ACT = 7 citing overcoming pneumonia currently. 2. ARC follow-up: Continues allergy avoidance, on meds, Continues on SCIT with improvement in upper airway symptoms.. 3. History of GERD, managed by GI - recently with bx, awaiting results. 4. History of recurrent pneumonia infections. s/p PI work-up showing inadequate protection to Hib and S. pneumo, Now S/p boosters, HiB protection now normal, S. pneumo remains inadequate.. * HPI: * Introduction: HPI: Shannon Donald, a 64-year-old female with a history of ARC, asthma, ONDINA, and GERD who returns in consultation with MARIA ESTHER Vidal for interval evaluation and management; and to continue Tezspire to treat her severe persistent asthma. She is with her f or today's visit. Ashlie has a history of chronic cough and shortness of breath, currently managed by MARIA ESTHER Vidal with Pulmonology. She has continued taking daily Trelegy and Singulair. Given ongoing lower airway issues, we elected to start FASENRA due to AEC >300, which she was tolerating with minimal issue. Given ongoing gurgling and frequent KIRILL use, we elected to switch to Tezspire. Historically she has complained of gurgling, which has improved significantly since starting pantoprazole. She recently had an EGD that confirmed GERD. She had a dilation completed several years ago after experiencing food-sticking, denies issues since dilation. She just had new bx with GI, awaiting results. Ashlie presents today now citing dx of pneumonia confirmed with imaging. She has been treated with 2 rounds of oral sterids and azithromycin at this point. Feel some improvment but a wet cough still lingers. P I work-up obtained previously that showed inadequate protection to Hib and S. pneumo. She has since obtained boosters for both. Repeat titers now show protection to HiB, still inadequate to S. pneumo. She has isnce obtained Pneumovax thouhg yet to obtain repepat titers due to recent pneumonia. A eroallergen skin testing was completed at prior visit, and was positive to multiple seasonal and perennial allergens. Historically Ashlie received specific allergen immunotherapy around 1999, previously seen by another local recycle coordinator Dr. Martel. She typically takes daily Zyrtec azelastine nasal spray and Flonase nasal spray. Tolerating SCIT with minimal issues, states she has noticed improvement in her upper airway symptoms. Today, she reports no fevers, chills, night sweats or other constitutional symptoms. The patient is here for scheduled immunotherapy with TEZSPIRE. Please see the attached specialty form regarding the specifics of the administration of this medication. As per our protocol, they must undergo a screening health questionnaire (medication changes, reaction(s) to last immunotherapy dose(s), current health status, ACT (if appropriate), self-injectable epinephrine on patient(?) and peak flow (if appropriate)). * Biologic administration: Indication for in-front office assistant T ezspire: It has been determined the patient is not a suitable candidate for Tezspire self-administration. Patient is not able to safely self-inject (see below in the Procedure section for specifics). Patient will receive Tezspire in the office for post-injection monitoring. . * ROS: A LLERGY: runny nose Y es. i tchy eyes Y es. s inus congestion Y es. P ositive p er the HPI and history, otherwise unremarkable. S PECIAL SENSES: Positve for n one. l oss of balance Y es. e xcessive tearing Y es. i tching eyes Y es. C ONSTITUTIONAL: weight gain Y es. w eakness Y es. f atigue Y es. P ositive for n one. E NT: cough Y es. s inus pain Y es. P ositive p er the HPI and history, otherwise unremarkable. R ESPIRATORY: shortness of breath Y es. c hest congestion Y es.?cough Y es. P ositive p er the HPI and history, otherwise unremakable. ? O PHTHALMOLOGY: Positive for p er the HPI and history, otherwise unremarkable. i tching Y es. w atering Y es. E NDOCRINOLOGY: fatigue Y es. c old intolerance Y es. P ositive for n one. C ARDIOLOGY: dizziness Y es. s hortness of breath Y es. P ositive for n one. G ASTROENTEROLOGY: abdominal pain Y es. n ausea Y es. v omiting?Yes. c onstipation Y es. i ndigestion Y es. h emorrhoids Y es. P ositive for n one. U ROLOGY: Positive for n one. D ERMATOLOGY: rash Y es. a cne Y es. P ositive for p er the HPI and history, otherwise unremakable. N EUROLOGY: headache Y es. d izziness Y es. P ositive for?none. H EMATOLOGY/LYMPH: Positive for n one. M USCULOSKELETAL: joint pain Y es. j oint stiffness Y es. o steoporosis Y es. c arpal tunnel Y es. P ositive for n one. P SYCHOLOGY: anxiety Y es. P ositive for n one. A ll other review of systems per the HPI and history, otherwise unremarkable. * Medical History: * Medications: T aking Tezspire 210 MG/1.91ML Solution Prefilled Syringe as directed Subcutaneous , Taking Pantoprazole Sodium 40 MG Tablet Delayed Release 1 tablet Orally Once a day , Taking Montelukast Sodium 10 MG Tablet 1 tab(s) orally once a day , Taking Cetirizine HCl 10 MG Tablet 1 tab(s) orally once a day , Taking PriLOSEC OTC 20 MG Tablet Delayed Release 1 tab(s) orally once a day , Taking Prolia 60 MG/ML Solution Prefilled Syringe as directed subcutaneously every 6 months , Taking Mucinex 600 MG Tablet Extended Release 12 Hour 1 tab(s) orally every 12 hours , Taking Rosuvastatin Calcium 10 MG Tablet 1 tab(s) orally once a day , Taking Gabapentin 300 MG Capsule 1 cap(s) orally 3 times a day , Notes to Pharmacist: takes 300mg at HS and 200mg in AM, Taking ONE A DAY WOMEN'S COMPLETE MULTIPLE VITAMINS WITH MINERALS TABLET 1 TAB(S) ORALLY ONCE A DAY , Notes to Pharmacist: *Please review for potential replacement for e-prescription and drug interaction check*, Taking Trelegy Ellipta 200 MCG-62.5 MCG-25 MCG/INH POWDER 1 PUFF(S) INHALED ONCE A DAY , Notes to Pharmacist: *Please review and pick correct strength-formulation from [employer] options. If intended option is not shown, discontinue and re-order from Quick Search*, Taking Azelastine HCl 137 MCG/SPRAY Solution 2 spray(s) intranasally 2 times a day , Taking Ipratropium-Albuterol 0.5-2.5 (3) MG/3ML Solution 3 mL by nebulizer 4 times a day , Taking Omeprazole 20 MG Capsule Delayed Release 1 cap(s) orally once a day , Taking Amoxicillin-Pot Clavulanate 875-125 MG Tablet 1 tablet Orally twice a day , Taking Doxycycline Hyclate 100 MG Capsule 1 capsule Orally Twice a day , Taking EpiPen 2-Anni 0.3 mg kit as directed intramuscularly once , Not-Taking/PRN EpiPen 2-Anni 0.3 mg kit as directed intramuscularly once , Not-Taking/PRN PRILOSEC OTC 20 mg delayed release tablet 1 tab(s) orally once a day , Not-Taking/PRN PROZAC 10 mg capsule 1 cap(s) orally once a day , Not-Taking/PRN CALTRATE 600 + D 600 mg-20 mcg tablet 1 tab(s) orally 2 times a day , Not-Taking/PRN AMLODIPINE 5 mg tablet 1 tab(s) orally once a day , Not-Taking/PRN ALBUTEROL (EQV-PROAIR HFA) 90 mcg/inh aerosol 2 puff(s) inhaled every 6 hours , Not-Taking/PRN MONTELUKAST 10 mg tablet 1 tab(s) orally once a day , Not-Taking/PRN TRELEGY ELLIPTA 200 mcg-62.5 mcg-25 mcg/inh powder 1 puff(s) inhaled once a day , Not-Taking/PRN AZELASTINE NASAL 137 mcg/inh spray 2 spray(s) intranasally 2 times a day , Not-Taking/PRN FLUTICASONE NASAL 50 mcg/inh spray 1 spray(s) in each nostril once a day , Not-Taking/PRN CETIRIZINE 10 mg tablet 1 tab(s) orally once a day , Not-Taking/PRN SIT (TRADITIONAL) variable see record per schedule SC per schedule , Not-Taking/PRN Fasenra Pen 30 MG/ML SOLUTION DIRECTED SUBCUTANEOUSLY EVERY 4 WEEKS X 3 THEN EVERY 8 WEEKS , Notes to Pharmacist: *Please review and pick correct strength-formulation from [employer] options. If intended option is not shown, discontinue and re-order from Quick Search*, Not-Taking/PRN PROzac 10 MG Capsule 1 cap(s) orally once a day , Not-Taking/PRN SIT (TRADITIONAL) VARIABLE SEE RECORD PER SCHEDULE SC PER SCHEDULE , Notes to Pharmacist: *Please review for potential replacement for e-prescription and drug interaction check* Objective: * Vitals: Assessment: * Assessment: 1. S evere persistent asthma with (acute) exacerbation - J45.51 (Primary) 2 .?Severe persistent asthma, uncomplicated - J45.50 3 . E osinophilic asthma - J82.83 4 . P ersonal history of pneumonia (recurrent) - Z87.01 5 . V itamin D deficiency, unspecified - E55.9 6 . A llergic rhinitis due to pollen - J30.1 7 . A llergic rhinitis due to animal (cat) (dog) hair and dander - J30.81 8 . O ther chronic allergic conjunctivitis - H10.45 9 . Other allergic rhinitis - J30.89 1 0. C hronic cough - R05.3 ?11. G jenni-esophageal reflux disease without esophagitis - K21.9 1 2. E ssential (primary) hypertension - I10 v. Plan: * Treatment: 2. S evere persistent asthma, uncomplicated Continue ALBUTEROL (EQV-PROAIR HFA) aerosol, 90 mcg/inh, 2 puff(s), inhaled, every 6 hours; C ontinue MONTELUKAST tablet, 10 mg, 1 tab(s), orally, once a day; C ontinue TRELEGY ELLIPTA powder, 200 mcg-62.5 mcg-25 mcg/inh, 1 puff(s), inhaled, once a day; C ontinue Tezspire Solution Prefilled Syringe, 210 MG/1.91ML, as directed, Subcutaneous. Notes: Ashlie continues Trelegy daily. Ashlie's cough is [...] without issue. Continues per GI as I ryder relfux is a large contributor to her syptoms. Consider aspiration as a component. Return in one month for dosing. Otherwise continue SCIT as below 3. E osinophilic asthma Notes: Treat as above 4. P ersonal history of pneumonia (recurrent) Notes: Recently treated for pneumonia with history of [...] wait one month to obtain repeat titers 5. V itamin D deficiency, unspecified Notes: Rule out for immune work-up as above 6. A llergic rhinitis due to pollen Continue AZELASTINE NASAL spray, 137 mcg/inh, 2 spray(s), intranasally, 2 times a day; C ontinue FLUTICASONE NASAL spray, 50 mcg/inh, 1 spray(s), in each nostril, once a day; C ontinue CETIRIZINE tablet, 10 mg, 1 tab(s), orally, once a day; C ontinue EPIPEN 2-ANNI kit, 0.3 mg, as directed, intramuscularly, once, 30 days, 1, Refills 0; C ontinue SIT (TRADITIONAL) see record, variable, per schedule, SC, per schedule, to be determined. Notes: Ashlie clearly suffers from atopic disease based upon our skin testing today. Accordingly, we have introduced a new, aggressive medication regimen, discussed nasal washes and allergy-specific avoidance measures. Recently completed cluster build-up; now on traditional schedule. Not due for dosing today. Keep AIE on hand 2 hours after SCIT. Continue to premedicate with Zyrtec prior to SCIT. Return per schedule for SCIT 7. A llergic rhinitis due to animal (cat) (dog) hair and dander Notes: Follow allergen avoidance, meds and continue SCIT as an adjunctive treatment to current regimen. 8. O ther chronic allergic conjunctivitis Notes: Given ocular signs and symptoms I encouraged allergy avoidance measures and meds as above. If symptoms persist, consider adding additional medications including intraocular antihistamine/mast cell stabilizer, PRN and continue SCIT as an adjunctive measure 9. O ther allergic rhinitis Notes: Follow allergen avoidance, meds and continue SCIT as an adjunctive treatment to current regimen 10. C hronic cough Notes: Ashlie's cough is likely multifactorial due to her history of asthma, atopic disease, and GERD. See plan above. 11. G jenni-esophageal reflux disease without esophagitis Continue PRILOSEC OTC delayed release tablet, 20 mg, 1 tab(s), orally, once a day. Notes: Ashlie reports occasional reflux symptoms Now on Protonix. Recently with bx, awaiting results. Continue per GI 12. E ssential (primary) hypertension Continue AMLODIPINE tablet, 5 mg, 1 tab(s), orally, once a day. Notes: BP normal today. Continue serial checks and follow-up with PCP 13. O thers Continue PROZAC capsule, 10 mg, 1 cap(s), orally, once a day; C ontinue CALTRATE 600 + D tablet, 600 mg-20 mcg, 1 tab(s), orally, 2 times a day. * Preventive Medicine: Counseling: M edication instruction: W atch for side effects of prescribed medications, Nasal steroid/antihistamine instruction: avoid septum. E ducation: G ENERAL EDUCATION: Our staff spent an additional 30 minutes in direct contact with the patient educating them on their current diagnoses and proper treatment and prevention of symptoms and the proper use of medications. E ducation 2: A RC EDUCATION: Our staff discussed the appropriate allergen avoidance measures and medication utilization including upper airway hygiene with daily nasal washes given the patient's clinical status and diagnoses. SCIT EDUCATION: Discussed allergy immunotherapy including the relative risks, benefits and alternatives to this treatment as an adjunctive measure to current therapy, Allergy Immunotherapy: Risks: bleeding, infection, allergic reaction, anaphylaxis = severe allergic reaction that can cause ; Benefits: reduced need for medications, improved symptoms, disease modification. Alternatives: watch/wait, change medication regimen, improve allergy avoidance measures, Our staff discussed the warning signs of anaphylaxis and the indications to use self-injectable epinephrine and seek urgent or emergent care. P atient education material sent to portal? Y es C are goal follow up plan BMI management provided Y es Above Normal BMI Follow-up D ietary management education, guidance, and counseling * Follow Up: 4 Weeks, as scheduled (Reason: Evaluation and Management, TEZSPIRE Administration, SCIT) * Billing Information: * Visit Code: 05591 Office Visit, Est Pt., Level 4. Modifiers: 25 * Procedure Codes: 03936 PT-FOCUSED HLTH RISK ASSMT. G8427 DOC MEDS VERIFIED W/[place]. [address] THER/PROPH/DIAG INJ, SC/IM. * Electronic signature of Napoleon Rosa MD, FAAAAI on 03/28/2025 at 01:45 PM CDT Sign off status: Pending * Provider: Chapito Rosa MD Date: 0 03/08/2025 Generated for Dylan espinosa/Brandon/eTransmitting on: 0 03/28/2025 01:45 PM CDT History and Physical Notes * HPI (History of Present Illness) Category Sub-Category Detail Notes Category Notes *Introduction HPI: Ashlie Donald, a 64-year-old female with a history of ARC, asthma, ONDINA, and GERD who returns in consultation with MARIA ESTHER Vidal for interval evaluation and management; and to continue Tezspire to treat her severe persistent asthma. She is with her for today's visit. Ashlie has a history of chronic cough and shortness of breath, currently managed by MARIA ESTHER Vidal with Pulmonology. She has continued taking daily Trelegy and Singulair. Given ongoing lower airway issues, we elected to start FASENRA due to AEC >300, which she was tolerating with minimal issue. Given ongoing gurgling and frequent KIRILL use, we elected to switch to Tezspire. Historically she has complained of gurgling, which has improved significantly since starting pantoprazole. She recently had an EGD that confirmed GERD. She had a dilation completed several years ago after experiencing food-sticking, denies issues since dilation. She just had new bx with GI, awaiting results. Ashlie presents today now citing dx of pneumonia confirmed with imaging. She has been treated with 2 rounds of oral sterids and azithromycin at this point. Feel some improvment but a wet cough still lingers. PI work-up obtained previously that showed inadequate protection to Hib and S. pneumo. She has since obtained boosters for both. Repeat titers now show protection to HiB, still inadequate to S. pneumo. She has isnce obtained Pneumovax thouhg yet to obtain repepat titers due to recent pneumonia. Aeroallergen skin testing was completed at prior visit, and was positive to multiple seasonal and perennial allergens. Historically Ashlie received specific allergen immunotherapy around 1999, previously seen by another local recycle coordinator Dr. Martel. She typically takes daily Zyrtec azelastine nasal spray and Flonase nasal spray. Tolerating SCIT with minimal issues, states she has noticed improvement in her upper airway symptoms. Today, she reports no fevers, chills, night sweats or other constitutional symptoms The patient is here for scheduled immunotherapy with TEZSPIRE. Please see the attached specialty form regarding the specifics of the administration of this medication. As per our protocol, they must undergo a screening health questionnaire (medication changes, reaction(s) to last immunotherapy dose(s), current health status, ACT (if appropriate), self-injectable epinephrine on patient(?) and peak flow (if appropriate)). *Biologic administration Indication for in-front office assistant Tezspire: It has been determined the patient is not a suitable candidate for Tezspire self-administration. Patient is not able to safely self-inject (see below in the Procedure section for specifics). Patient will receive Tezspire in the office for post-injection monitoring. Examination Category Sub-Category Detail Notes Category Not es General examination HEENT: conjunctiva are haven l bilaterally Heart: RRR, S1-S2, no murmu rs, no rubs, no gallops Lungs: rhonchi and rales pr esent with transmitted upper airway sounds Extremities: normal ROM, no clubb ing, no cyanosis, no edema General appearance: pleasant, well-devel oped, well-nourished, female, in no apparent distress, speaking in full sentences Skin: normal, no visible r sussy, dermatographism, urticaria, angioedema Neurologic exam: unremarkable Oral cavity: normal, no lesions Breasts : not performed Back: normal Genitalia: not performed
--- OUTSIDE RECORDS SUMMARY | 2025-03-28 13:45 | XMS_ITS | Referral Summary ---
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
--- OUTSIDE RECORDS SUMMARY | 2025-03-28 13:46 | XMS_ITS | Patient Health Record ---
Author Organization [employer] [place] ([address]) Address [address] [place] [address] Care Team Providers Care Fiberglass Model Maker Name Role Phone Tal Ashley MD Primary Care Provider Unavaila Jose De Jesus Villa Unavailable [phone] Esvin Valle Unavailable Unavailable Aristeo Rosa Unavailable [phone] Flavia Medina Unavailable [phone] Amy Cosme Unavailable [phone] [facility], Provider Unavailable Unavailab le Allergies No Known Allergies Results Component Value Reference Range Notes H. INFLUENZAE TYPE B AB Reviewed date:08/22/2024 11:27:49 AM Interpretation:Normal Performing Lab:[facility], [facility],, [address] [place], [address] Nieves Pandya MD,PhD,DAX Notes/Report: NON-FASTING HAEMOPHILUS INFLUENZA [...] sera is considered evidence of effective immunization. S. PNEUMONIAE IGG AB, 23 SER OTYPES, S Reviewed date:08/22/2024 11:28:58 AM Interpretation:Abnormal Performing Lab:[facility], [facility], [address] [place], [place], [address] Myriam Miller M.D. Ph.D. Notes/Report: NON-FASTING INTERPRETATION [...] developed and its performance characteristics determined by [facility] in a manner consistent with CLIA requirements. [...] Duration) Notes Start Date End Date Status SIT (TRADITIONAL) variable per schedule SC per schedule for to be determined Active Tezspire 210 MG/1.91ML as directed Subcutaneous Active Amoxicillin-Pot Clavulanate 875-125 MG 1 tablet Orally twice a day for 7 days Active Fasenra Pen 30 MG/ML DIRECTED SUBCUTANEOUSLY EVERY 4 WEEKS X 3 THEN EVERY 8 WEEKS for 30 DAYS *Please review and pick correct strength-formula tion from AppTap options. If intended option is not shown, discontinue and re-order from Quick Search* Not-Taking PROzac 10 MG 1 cap(s) orally once a day Not-Taking FLUTICASONE NASAL 50 mcg/inh 1 spray(s) in each nostril once a day Active SIT (TRADITIONAL) VARIABLE PER SCHEDULE SC PER SCHEDULE for TO BE DETERMINED *Please review for potential replacement for e-prescription and drug interaction check* 07/19/2023 Not-Taking CETIRIZINE 10 mg 1 tab(s) orally once a day Active AZELASTINE NASAL 137 mcg/inh 2 spray(s) intranasally 2 times a day Active AMLODIPINE 5 mg 1 tab(s) orally once a day Active Azelastine HCl 137 MCG/SPRAY 2 spray(s) intranasally 2 times a day Active ALBUTEROL (EQV-PROAIR HFA) 90 mcg/inh 2 puff(s) inhaled every 6 hours Active Ipratropium-Albute rol 0.5-2.5 (3) MG/3ML 3 mL by nebulizer 4 times a day for 30 day(s) Active MONTELUKAST 10 mg 1 tab(s) orally once a day Active Omeprazole 20 MG 1 cap(s) orally once a day for 30 day(s) Active TRELEGY ELLIPTA 200 mcg-62.5 mcg-25 mcg/inh 1 puff(s) inhaled once a day Active EpiPen 2-Anni 0.3 mg as directed intramuscularly once for 30 days Active Rosuvastatin Calcium 10 MG 1 tab(s) orally once a day Active PRILOSEC OTC 20 mg 1 tab(s) orally once a day Active Gabapentin 300 MG 1 cap(s) orally 3 times a day takes 300mg at HS and 200mg in AM Active PROZAC 10 mg 1 cap(s) orally once a day Active ONE A DAY WOMEN'S COMPLETE MULTIPLE VITAMINS WITH MINERALS 1 TAB(S) ORALLY ONCE A DAY *Please review for potential replacement for e-prescription and drug interaction check* Active CALTRATE 600 + D 600 mg-20 mcg 1 tab(s) orally 2 times a day Active Trelegy Ellipta 200 MCG-62.5 MCG-25 MCG/INH 1 PUFF(S) INHALED ONCE A DAY *Please review and pick correct strength-formula tion from AppTap options. If intended option is not shown, discontinue and re-order from Quick Search* Active PriLOSEC OTC 20 MG 1 tab(s) orally once a day Active Prolia 60 MG/ML as directed subcutaneously every 6 months Active Mucinex 600 MG 1 tab(s) orally ever y 12 hours Active Doxycycline Hyclate 100 MG 1 capsule Orally Twice a day for 7 days Active Pantoprazole Sodium 40 MG 1 tablet Orally Once a day Active Montelukast Sodium 10 MG 1 tab(s) orally once a day Active Cetirizine HCl 10 MG 1 tab(s) orally once a day Active EPIPEN 2-ANNI 0.3 mg as directed intramuscularly once for 30 days Active Immunizations Vaccine Route Administration Date Status Comme [...] Status Risk Notes Problem Vitamin D deficiency (39702789) Vitamin D deficiency, unspecified (E55.9) Active confirmed Problem Chronic allergic conjunctivitis (26269314) Other chronic allergic conjunctivitis (H10.45) Active confirmed Problem Essential hypertension (52126468) Essential (primary) hypertension (I10) Active confirmed Problem Allergic rhinitis caused by pollen (disorder) (98635749) Allergic rhinitis due to pollen (J30.1) Active confirmed Problem Allergic rhinitis (26467443) Other allergic rhinitis (J30.89) Active confirmed Problem Uncomplicated severe persistent asthma (551795159) Severe persistent asthma, uncomplicated (J45.50) Active confirmed Problem Gastro-esophageal reflux disease without esophagitis (044780236) Gastro-esophageal reflux disease without esophagitis (K21.9) Active confirmed Problem History of pneumonia (779222173) Personal history of pneumonia (recurrent) (Z87.01) Active confirmed Problem Allergic rhinitis caused by animal hair and dander (350220224363916) Allergic rhinitis due to animal (cat) (dog) hair and dander (J30.81) Active confirmed Problem Acute severe exacerbation of severe persistent asthma (353630074) Severe persistent asthma with (acute) exacerbation (J45.51) Active confirmed Problem Malaise (030828283) Other malaise (R53.81) Active confirmed Problem Fatigue (96256041) Other fatigue (R53.83) Active confirmed Problem Abnormal weight gain (759833733) Abnormal weight gain (R63.5) Active confirmed Problem Chronic cough (31618998) Chronic cough (R05.3) Active confirmed Problem 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 confirmed Problem Chronic fatigue syndrome (disorder) (65619512) Chronic fatigue, unspecified (R53.82) Active confirmed Vital Signs Oximetry 99 % 03/08/2025 Blood pressure diastolic 70 mm Hg 03/08/2025 Height 62 in 03/08/2025 Blood pressure systolic 110 mm Hg 03/08/2025 Weight 147.0 lbs 10/30/2024 BMI 26.88 kg/m2 10/30/2024 Encounters Encounter Location Date Provider Diagnosis [facility] ([address]) [address] [place] [address] 04/03/2024 Aristeo Rosa Chronic fatigue, unspecified R53.82 ; Other fatigue R53.83 ; Other malaise R53.81 and Abnormal weight gain R63.[address] [address] 04/15/2024 Provider [facility] ([address]) [address] [place] [address] 04/17/2024 Aristeo Rosa Chronic fatigue, unspecified R53.82 ; Other fatigue R53.83 ; Other malaise R53.81 and Abnormal weight gain R63.[address] [facility] [address] [address] 12/06/2024 Flavia Medina [address] [facility] [address] [address] 02/21/2025 Aristeo Rosa Allergic rhinitis du e to pollen J30.1 ; Allergic rhinitis due to animal (cat) (dog) hair and dander J30.81 ; Other allergic rhinitis J30.89 and Other chronic allergic conjunctivitis H10.[address] [facility] [address] [address] 03/28/2024 Aristeo Rosa Allergic rhinitis du e to pollen J30.1 ; Allergic rhinitis due to animal (cat) (dog) hair and dander J30.81 ; Other allergic rhinitis J30.89 and Other chronic allergic conjunctivitis H10.45 [facility] [place] [address] [address] 04/20/2024 Aristeo Rosa Allergic rhinitis du e to pollen J30.1 ; Allergic rhinitis due to animal (cat) (dog) hair and dander J30.81 ; Other allergic rhinitis J30.89 and Other chronic allergic conjunctivitis H10.45 [facility] [address] [address] 05/18/2024 Aristeo Rosa Allergic rhinitis du e to pollen J30.1 ; Allergic rhinitis due to animal (cat) (dog) hair and dander J30.81 ; Other allergic rhinitis J30.89 and Other chronic allergic conjunctivitis H10.45 [facility] [address] [place] [address] 05/23/2024 Jose De Jesus Lozano Severe persistent [...] esophagitis K21.9 and Essential (primary) hypertension I10 [facility] [address] [address] 06/20/2024 Jose De Jesus Lozano Severe persistent [...] esophagitis K21.9 and Essential (primary) hypertension I10 [facility] [address] [address] 06/22/2024 Aristeo Rosa Allergic rhinitis du e to pollen J30.1 ; Allergic rhinitis due to animal (cat) (dog) hair and dander J30.81 ; Other allergic rhinitis J30.89 and Other chronic allergic conjunctivitis H10.[address] [address] 06/26/2024 Aristeo Rosa Encounter for immunization Z23 and Encounter for antibody response examination Z01.[address] [address] 07/18/2024 Amy Cosme Severe persistent asthma, uncomplicated [...] esophagitis K21.9 and Essential (primary) hypertension I10 [address] [address] 07/25/2024 Aristeo Rosa Allergic rhinitis du e to pollen J30.1 ; Allergic rhinitis due to animal (cat) (dog) hair and dander J30.81 ; Other allergic rhinitis J30.89 and Other chronic allergic conjunctivitis H10.45 [facility] [address] [place] [address] 08/15/2024 Jose De Jesus Lozano Severe persistent [...] esophagitis K21.9 and Essential (primary) hypertension I10 [address] [address] 08/23/2024 Aristeo Rosa Allergic rhinitis du e to pollen J30.1 ; Allergic rhinitis due to animal (cat) (dog) hair and dander J30.81 ; Other allergic rhinitis J30.89 and Other chronic allergic conjunctivitis H10.[address] [address] 09/12/2024 Amyisidro Meredithlisa Severe persistent asthma, uncomplicated J45.50 ; Eosinophilic [...] esophagitis K21.9 and Essential (primary) hypertension I10 [facility] [address] [place] [address] [address] 10/09/2024 Aristeo Rosa Allergic rhinitis du e to pollen J30.1 ; Allergic rhinitis due to animal (cat) (dog) hair and dander J30.81 ; Other allergic rhinitis J30.89 and Other chronic allergic conjunctivitis H10.45 [facility] [address] [place] [address] 10/16/2024 Aristeo Rosa Allergic rhinitis du e to pollen J30.1 ; Allergic rhinitis due to animal (cat) (dog) hair and dander J30.81 ; Other allergic rhinitis J30.89 and Other chronic allergic conjunctivitis H10.45 [facility] [address] [place] [address] 10/30/2024 Jose De Jesus Blake Severe persistent asthma, uncomplicated J45.50 ; Severe [...] esophagitis K21.9 and Essential (primary) hypertension I10 [facility] [address] [place] [address] [address] 11/13/2024 Aristeo Rosa Allergic rhinitis du e to pollen J30.1 ; Allergic rhinitis due to animal (cat) (dog) hair and dander J30.81 ; Other allergic rhinitis J30.89 and Other chronic allergic conjunctivitis H10.45 [facility] [address] [place] [address] [address] 12/11/2024 Aristeo Rosa Allergic rhinitis du e to pollen J30.1 ; Allergic rhinitis due to animal (cat) (dog) hair and dander J30.81 ; Other allergic rhinitis J30.89 and Other chronic allergic conjunctivitis H10.45 [facility] [address] [place] [address] [address] 12/18/2024 Aristeo Rosa Allergic rhinitis du e to pollen J30.1 ; Allergic rhinitis due to animal (cat) (dog) hair and dander J30.81 ; Other allergic rhinitis J30.89 and Other chronic allergic conjunctivitis H10.45 [facility] [address] [place] [address] [address] 12/28/2024 Aristeo Rosa Allergic rhinitis du e to pollen J30.1 ; Allergic rhinitis due to animal (cat) (dog) hair and dander J30.81 ; Other allergic rhinitis J30.89 and Other chronic allergic conjunctivitis H10.45 [facility] [address] [place] [address] [address] 01/24/2025 Aristeo Rosa Allergic rhinitis du e to pollen J30.1 ; Allergic rhinitis due to animal (cat) (dog) hair and dander J30.81 ; Other allergic rhinitis J30.89 and Other chronic allergic conjunctivitis H10.45 [facility] [address] [place] [address] [address] 02/07/2025 Aristeo Rosa Severe persistent asthma, uncomplicated J45.50 [facility] [address] [place] [address] [address] 02/26/2025 Aristeo Rosa Allergic rhinitis du e to pollen J30.1 ; Allergic rhinitis due to animal (cat) (dog) hair and dander J30.81 ; Other allergic rhinitis J30.89 and Other chronic allergic conjunctivitis H10.45 [facility] [address] [place] [address] [address] 03/08/2025 Aristeo Rosa Severe persistent asthma, uncomplicated J45.[address] [address] 03/27/2025 Aristeo Rosa Allergic rhinitis du e to pollen J30.1 ; Allergic rhinitis due to animal (cat) (dog) hair and dander J30.81 ; Other allergic rhinitis J30.89 and Other chronic allergic conjunctivitis H10.[address] [address] 06/20/2024 Jose De Jesus Lozano [address] [address] 11/22/2024 Jose De Jesus Lozano [address] [address] 11/28/2024 Jose De Jesus Lozano [address] [address] 01/03/2025 Jose De Jesus Lozano Assessments Encounter Date Diagnosis (ICD Code) Assessment Notes Treatment Notes Treatment Clinical Notes Section Notes 03/28/2024 Allergic rhinitis due to pollen (ICD-10 [...] (ICD-10 - J45.50) Ashlie continues Trelegy daily. Bernadines cough is likely multifactorial due to her history of asthma, atopic disease, and GERD. AEC returned at 365 we elected trial of Fasenra given clear repeat need for or steroids and lack of control on Trelelgy. Given continued alfredo SOB and feelings of of gurgling resulting in multiple rounds of steroids, we elected to transition to Tezspire last visit. Sammieenly feeling under the weather after getting Prevnar [...] (ICD-10 - J45.50) Ashlie continues Trelegy daily. Bernadines cough is likely multifactorial due to [...] rhinitis due to pollen (ICD-10 - J30.1) 02/21/2025 Allergic rhinitis due to pollen (ICD-10 - J30.1) 02/26/2025 Allergic rhinitis due to pollen (ICD-10 - J30.1) 02/07/2025 Severe persistent asthma, uncomplicated (ICD-10 - J45.50) 03/08/2025 Severe persistent asthma, uncomplicated (ICD-10 - J45.50) 03/27/2025 Allergic rhinitis due to pollen (ICD-10 - J30.1) 03/27/2025 Allergic rhinitis due to animal (cat) (dog) hair and dander (ICD-10 - J30.81) 02/26/2025 Allergic rhinitis due to animal (cat) (dog) hair and dander (ICD-10 - J30.81) 02/21/2025 Allergic rhinitis due to animal (cat) (dog) hair and dander (ICD-10 - J30.81) 01/24/2025 Allergic rhinitis due to animal (cat) [...] (dog) hair and dander (ICD-10 - J30.81) 03/28/2024 Other allergic rhinitis (ICD-10 - J30.89) [...] 01/24/2025 Other allergic rhinitis (ICD-10 - J30.89) 02/21/2025 Other allergic rhinitis (ICD-10 - J30.89) 02/26/2025 Other allergic rhinitis (ICD-10 - J30.89) 03/27/2025 Other allergic rhinitis (ICD-10 - J30.89) 02/21/2025 Other chronic allergic conjunctivitis (ICD-10 - H10.45) 03/27/2025 Other chronic allergic conjunctivitis (ICD-10 - H10.45) 02/26/2025 Other chronic allergic conjunctivitis (ICD-10 - H10.45) 11/13/2024 Other chronic allergic conjunctivitis (ICD-10 - [...] Other chronic allergic conjunctivitis (ICD-10 - H10.45) 06/20/2024 Other chronic allergic conjunctivitis (ICD-10 - [...] an adjunctive treatment to current regimen 05/23/2024 Chronic cough (ICD-10 - R05.3) Bernadines cough is likely multifactorial due to her history of asthma, atopic disease, and GERD. See plan above. 06/20/2024 Chronic cough (ICD-10 - R05.3) Bernadines cough [...] v 09/12/2024 Chronic cough (ICD-10 - R05.3) Danna cough is likely multifactorial due to her history of asthma, atopic disease, and GERD. See plan above. v 07/18/2024 Gastro-esophageal reflux disease without esophagitis (ICD-10 - K21.9) Ashlie reports occasional reflux symptoms Now on Protonix. Set to follow-up with her chief deputy clerk/bailiff for further evaluation and management. 08/15/2024 Gastro-esophageal reflux disease without esophagitis (ICD-10 - K21.9) Ashlie reports occasional reflux symptoms Now on Protonix. Recently with bx, awaiting results. Continue per GI 06/20/2024 Gastro-esophageal reflux disease without esophagitis (ICD-10 - K21.9) Ashlie reports occasional reflux symptoms Now on Protonix. Set to follow-up with her chief deputy clerk/bailiff for further evaluation and management. 05/23/2024 Gastro-esophageal reflux disease without esophagitis (ICD-10 - K21.9) Ashlie reports occasional reflux symptoms Now on Protonix. Set to follow-up with her chief deputy clerk/bailiff for further evaluation and management. 05/23/2024 Essential (primary) hypertension (ICD-10 - I10) [...] follow-up with PCP v 10/17/2024 Other v 03/08/2025 Other v 05/23/2024 Other 06/20/2024 Other 07/18/2024 Other 08/15/2024 Other 09/12/2024 Other v 10/30/2024 Other v 02/07/2025 Other 03/08/2025 Other Plan Of Treatment Pending Test Test Name Order Date STREPTOCOCCUS PNEUMONIAE IGG AB (23 SERO TYPES) 03/21/2024 TETANUS ANTITOXOID ANTIBODY (EIA) 2023 DIPHTHERIA ANTITOXOID ANTIBODY VITAMIN D, 25-OH, TOTAL, [place] 09/12/2024 HAEMOPHILUS INFLUENZAE B ANTIBODY, IGG 0 03/21/2024 HAEMOPHILUS INFLUENZAE B ANTIBODY, IGG 0 06/20/2024 CBC (INCLUDES DIFF/PLT) 02/22/2023 S. PNEUMONIAE IGG AB, 23 SEROTYPES, S Next Appt Details Provider Name:Aristeo Rosa , 04/05/2025 12:30:00 PM, [address] [employer], [address], [address], Provider Name:Aristeo Rosa , 04/24/2025 11:00:00 AM, [address] [employer], [address], [place], [address], Provider Name:Aristeo Rosa , 05/03/2025 01:00:00 PM, [address] [employer], [address], [place], [address], Insurance Providers Payer Name Payer Address Payer Phone Subscriber Number Group Number Insured Name Patient Relationship to Insured Coverage Start Date Coverage End Date [employer] Medicare [address] [address] [place] [address] [phone] [id number] Ashlie Donald Self - patient is the insured Medical (General) History Medical History History ICD Code Hypertension Asthma Sleep apnea neuropathy Osteoporosis GERD Hypercholesterolemia Surgical History Surgery Date(Month/Year) Sinus Surgery 11/01/2004 Carpal Tunnel Surgery 11/01/1994 Foot Surgerys (3) 11/01/2014 Gallbladder Laparoscopy 11/01/2014 Broken & Dislocated Ankle 01/13/2022 Removal of plates in ankle 10/27/2022 Hospitalization History Reason Date(Month/Year) of daughter 11/13/1998 Pneumonia 11/01/2004
[2025-03-28 16:32] LABS: Alanine Aminotransferase 21 U/L (6-35); Albumin Level 4.4 g/dL (3.5-5.1); Alkaline Phosphatase 86 U/L (38-126); Anion Gap 9 mmol/L (4-12); Aspartate Amino Transferase 51 U/L (14-36); Bilirubin,Total 0.5 mg/dL (0.2-1.3); Blood Urea Nitrogen 18 mg/dL (7-17); Calcium 10.9 mg/dL (8.4-10.2); Carbon Dioxide 26 mmol/L (22-30); Chloride 103 mmol/L (98-107); Estimated Glomerular Filt Rate > 60; Glucose 111 mg/dL (65-110); Potassium 3.8 mmol/L (3.4-5.0); Sodium 138 mmol/L (137-145)
[2025-03-28 18:30] LABS: Hemoglobin A1C 5.9 % (<5.7)
== END 2025-03-28 13:39 | disposition home or self-care (01) ==
LOC: ANHLAB 13:39
PROVIDERS: PCP Family Medicine; Visit Provider Family Medicine
DX: R73.01 Impaired fasting glucose (principal); I10 Essential (primary) hypertension
CPT/HCPCS: 36415; 80053; 83036

== ENCOUNTER 2025-05-21 15:09 | Outpatient (CLI) | payer MEDICARE, SELFPAY ==
--- NOTE | ~2025-05-21 | MM_ITS ---
EXAMINATION: MM screening [facility] BI w mike HISTORY: Screening TECHNIQUE: Craniocaudal and mediolateral oblique 3-D tomosynthesis images were obtained and synthetic 2-D images were generated. CAD analysis was submitted and interpreted. COMPARISON: Comparison to multiple prior studies sequentially, with oldest reviewed study dated 06/17. BREAST PARENCHYMAL COMPOSITION: There are scattered areas of fibroglandular density. FINDINGS: There is no evidence of suspicious mass, calcification, or architectural distortion to sug gest malignancy in either breast. Scattered benign-appearing calcifications are present. IMPRESSION: 1. No mammographic evidence of malignancy. 2. Recommend routine screening mammography in one year. BI-RADS Category 2: Benign finding(s). Reviewed, dictated and finalized at location B.
== END 2025-05-21 15:10 | disposition home or self-care (01) ==
LOC: MICIMG 15:10
PROVIDERS: PCP Family Medicine; Visit Provider Obstetrics & Gynecology
DX: Z12.31 Encounter for screening mammogram for malignant neoplasm of breast (principal)
CPT/HCPCS: 77063; 77067

== ENCOUNTER 2025-09-18 08:57 | Outpatient (CLI) | payer MEDICARE, SELFPAY ==
--- NOTE | ~2025-09-18 | XR_ITS ---
EXAMINATION: XR chest 2V, 09/18/2025 9:41 FILTER PLANT SUPERVISOR HISTORY: COUGH FEVER COMPARISON: No comparisons available. Technique: 2 views obtained. Findings: Small basilar infiltrates. No pneumothorax. Heart is normal size. Mediastinal and hilar contours are within normal limits. Bony thorax no acute abnormality. Impression: Bilateral pneumonia Reviewed, dictated and finalized at location P. ER PLANT SUPERVISOR Impression: Bilateral pneumonia
[2025-09-18 11:02] LABS: Influenza A QL RT-PCR Negative (Negative); Influenza B QL RT-PCR Negative (Negative); SARS-CoV-2 RNA PCR Negative (Negative)
== END 2025-09-18 08:58 | disposition home or self-care (01) ==
LOC: ANHLAB 08:58
PROVIDERS: PCP Family Medicine; Visit Provider Physician Assistant
DX: R05.9 Cough, unspecified (principal); R50.9 Fever, unspecified; J18.9 Pneumonia, unspecified organism
CPT/HCPCS: 71046; 87636

== ENCOUNTER 2025-10-18 14:55 | Outpatient (CLI) | payer MEDICARE, SELFPAY ==
--- OUTSIDE RECORDS SUMMARY | 2025-08-14 11:30 | XMS_ITS ---
Author Organization [facility] [place] ([address]) Address [address] [place] [address] Care Team Providers Care Rental Manager Name Role Phone Andre Barton Primary Care Provider UnavailAnay Ni Unavailable [phone] Esvin Valle Unavailable Unavailable Aristeo Rosa Unavailable [phone] REASON FOR VISIT SCIT (Aeroallergen) Social History Sex Assigned At : Social History Observation Description Sex Assigned At Female Encounters Encounter Location Date Provider Diagnosis [facility] [address] [place] [address] 08/14/2025 Aristeo Rosa Plan Of Treatment Next Appt Details Provider Name:Aristeo Rosa , 10/23/2025 12:30:00 PM, [address], [place], [address], Provider Name:Anay monique, 11/20/2025 12:45:00 PM, [address], [place], [address], Progress Notes * Ashlie DONALD MDOB: [birth year] (65 yo F)Acc No.[id number]:08/14/2025 SCIT-Aeroallergen Patient: Ashlie APONTE Provider: Chapito Rosa MD :1960 A ge:65 Y S ex:Female Date:08/14/2025 Address:[address] [place], [place] [id number] Pcp:Andre Barton Subjective: * Chief Complaints: * 1 . SCIT (Aeroallergen). * Medical History: Objective: * Vitals: Assessment: Plan: * Treatment: * Billing Information: * Visit Code: * Procedure Codes: * Electronic signature of Napoleon Rosa MD, FAAAAI on 10/18/2025 at 03:51 PM WORK TICKET DISTRIBUTOR Sign off status: Pending * Provider: Chapito Rosa MD Date: Generated for Dylan espinosa/Brandon/Lisasmitting on: 12/19/2024 03:51 PM WORK TICKET DISTRIBUTOR
--- OUTSIDE RECORDS SUMMARY | 2025-10-01 11:30 | XMS_ITS ---
Author Organization [facility] [place] ([address]) Address [address] [place] [address] Care Team Providers Care Skein Yard Drier Name Role Phone Andre Barton Primary Care Provider UnavailAnay Ni Unavailable [phone] Esvin Valle Unavailable Unavailable Aristeo Rosa Unavailable [phone] REASON FOR VISIT TEZSPIRE FD Only Social History Sex Assigned At : Social History Observation Description Sex Assigned At Female Encounters Encounter Location Date Provider Diagnosis [facility] [address] [place] [address] 10/01/2025 Aristeo Rosa Plan Of Treatment Next Appt Details Provider Name:Aristeo Rosa , 10/23/2025 12:30:00 PM, [address], [place], [address], Provider Name:Anay monique, 11/20/2025 12:45:00 PM, [address], [place], [address], Progress Notes * Ashlie DONALD MDOB: [birth year] (65 yo F)Acc No.[id number]:10/01/2025 TEZSPIRE Only Patient: Ashlie APONTE Provider: Chapito Rosa MD :1960 A ge:65 Y S ex:Female Date:10/01/2025 Address:[address] [place], [place] [id number] Pcp:Andre Barton Subjective: * Chief Complaints: * 1 . TEZSPIRE FD Only. * Medical History: Objective: * Vitals: Assessment: Plan: * Treatment: * Billing Information: * Visit Code: * Procedure Codes: * Electronic signature of Napoleon Rosa MD, FAAAAI on 10/18/2025 at 03:51 PM DIRECTOR OF FOOD AND NUTRITION Sign off status: Pending * Provider: Chapito Rosa MD Date: 12/02/2024 Generated for Dylan espinosa/Brandon/Cinthya on: 12/19/2024 03:51 PM DIRECTOR OF FOOD AND NUTRITION
--- NOTE | ~2025-10-18 | XR_ITS ---
EXAMINATION: XR chest 2V, 10/18/2025 15:05 SILK WEAVER HISTORY: R05 - Cough COMPARISON: No comparisons available. Technique: 2 views obtained. Findings: The lungs are clear, no effusion. No pneumothorax. Heart is normal size. Mediastinal and hilar contours are within normal limits. Bony thorax no acute abnormality. Impression: No acute cardiopulmonary abnormality. Reviewed, dictated and finalized at location P. WEAVER Impression: No acute cardiopulmonary abnormality.
--- OUTSIDE RECORDS SUMMARY | 2025-10-18 15:52 | XMS_ITS | Clinical Summary ---
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
--- OUTSIDE RECORDS SUMMARY | 2025-10-18 15:52 | XMS_ITS | Patient Health Record ---
Author Organization [facility] [employer] [address] ([address]) Address [address] [place] [address] Care Team Providers Care Telescope Maintenance Name Role Phone Barton Andre Primary Care Provider UnavailAnay Ni Unavailable [phone] Esvin Valle Unavailable Unavailable Aristeo Rosa Unavailable [phone] Flavia Medina Unavailable [phone] Jose De Jesus Lozano Unavailable [phone] Allergies No Known Allergies Results Component Value Reference Range Notes IMMUNOGLOBULINS A/E/G/M,SERU M Reviewed date:10/10/2025 09:01:01 AM Interpretation:Normal Performing Lab:[place], [facility], [address] [facility] [place], [address] KristinJosette Sullivan MD Notes/Report: NON-FASTING; NON-FASTING; NON-FASTING IMMUNOGLOBULIN A 213 70-320 mg/dL IMMUNOGLOBULIN E 13 <NO=189 kU/L IMMUNOGLOBULIN G 143 535-6874 mg/dL IMMUNOGLOBULIN M 81 50-300 mg/dL H. INFLUENZAE TYPE B AB Reviewed date:10/10/2025 09:00:38 AM Interpretation:Abnormal Performing Lab:EZ, [facility],, [address] [place], [address] Nieves Pandya MD,PhD,DAX Notes/Report: NON-FASTING HAEMOPHILUS INFLUENZA TYPE B ANTIBODY (IGG) 0.44 REFERENCE RANGE: > or = 1.00 mcg/mL [...] sera is considered evidence of effective immunization. DIPHTHERIA AND TETANUS ANTIT OXOIDS Reviewed date:10/10/2025 07:48:46 AM Interpretation:Normal Performing Lab:SHANIQUA, [facility],, [address] [place], [address] Nieves Pandya MD,PhD,DAX Notes/Report: NON-FASTING; NON-FASTING; NON-FASTING DIPHTHERIA ANTITOXOID >2.00 REFERENCE RANGE: 0.10 IU/mL or greater Interpretive [...] analytical performance characteristics have been determined by [employer]. It has not been cleared or approved by FDA. This assay has been validated pursuant to the CLIA regulations and is used for clinical purposes. TETANUS ANTITOXOID 1.44 REFERENCE RANGE: 0.10 IU/mL or greater Antibody levels > or = 0.10 IU/mL are considered protective. However, tetanus can still occur in some individuals with such antibody levels. These results should not be used to determine the necessity to administer antitoxin when clinically indicated. This test was developed and its analytical performance characteristics have been determined by [employer]. It has not been cleared or approved by FDA. This assay has been validated pursuant to the CLIA regulations and is used for clinical purposes. CARDIO IQ(R) VITAMIN D, 25 H YDROXY Reviewed date:10/10/2025 09:00:50 AM Interpretation:Normal Performing Lab:Z3E, [facility] [address], [address], [place], [address] Guillermo Love MD,PhD Notes/Report: NON-FASTING; NON-FASTING; NON-FASTING VITAMIN D, 25-OH, TOTAL 66 30-100 ng/mL (Note) Vitamin D, 25-Hydroxy reports concentrations of two common forms, 25-OHD2 and 25-OHD3. 25-OHD3 indicates both endogenous production and supplementation. 25-OHD2 is an indicator of exogenous sources such as diet or supplementation. Therapy is based on measurement of Total 25-OHD, with levels <20 ng/mL indicative of Vitamin D deficiency, while levels between 20 ng/mL and 30 ng/mL suggest insufficiency. Optimal levels are > or = 30 ng/mL. For additional information, please refer to http://Burt.[employer]ing m/faq/WPX642 (This link is being provided for information/educational purposes only.) VITAMIN D, 25-OH, D3 66 Referen ce range: Not established VITAMIN D, 25-OH, D2 <4.0 (Note) Reference range: Not established This test was developed and its analytical performance characteristics have been determined by [facility]. It has not been cleared or approved by the US Food and Drug Administration. This assay has been validated pursuant to the CLIA regulation and is used for Clinical purposes. [facility] [address] [facility] [address] [facility] [address] Guillermo Love MD, PhD See Note 1 Note 1 For additional information, please refer to http://Burt.[employer] m/faq/GFO181 (This link is being provided for informational/ educational purposes only.) STREPTOCOCCUS PNEUMONIAE AB (IGG) (23 SEROTYPES) Reviewed date:10/10/2025 05:17:19 PM Interpretation:Abnormal Performing Lab:EZ, [facility],, [address] [place], [address] Nieves Pandya MD,PhD,DAX Notes/Report: NON-FASTING SEROTYPE 1 (1) 19.8 SEROTYPE 2 (2) 2.5 SEROTYPE 3 (3) 1.2 SEROTYPE 4 (4) <0.3 SEROTYPE 5 (5) 13.3 SEROTYPE 8 (8) 1.8 SEROTYPE 9 (9N) 1.7 SEROTYPE 12 (12F) <0.3 SEROTYPE 14 (14) 1.3 SEROTYPE 17 (17F) 1.7 SEROTYPE 19 (19F) 4.0 SEROTYPE 20 (20) 0.4 SEROTYPE 22 (22F) 0.7 SEROTYPE 23 (23F) <0.3 SEROTYPE 26 (6B) <0.3 SEROTYPE 34 (10A) 0.4 SEROTYPE 43 (11A) 2.3 SEROTYPE 51 (7F) 4.8 SEROTYPE 54 (15B) 1.6 SEROTYPE 56 (18C) 6.0 SEROTYPE 57 (19A) 1.6 SEROTYPE 68 (9V) <0.3 SEROTYPE 70 (33F) 1.0 Serologic correlates of protection against pneumococcal disease have not been rigorously established for all patient populations. Published data and expert consensus (including WHO) suggest protection from invasive disease usually occurs at levels >or =0.3-0.50 mcg/mL for healthy children receiving pneumococcal conjugate vaccines. Higher titers may be necessary to protect from non-invasive infection (e.g., pneumonia, otitis, sinusitis). Expert opinion suggests that a cut-off of >= 1.3 mcg/mL may be a more relevant value to assess antibody responses after pneumococcal polysaccharide vaccines or for immunocompromised patients. In addition to antibody quantity, protection also depends on antibody avidity and opsonophagocytic activity. Some experts consider that post-vaccination (4-6 weeks) IgG seroconversion and/or 2- to 4-fold rise in IgG titers for >50% to 70% of vaccine serotypes demonstrates a normal post-vaccine serologic response. Persons with high initial serotype-specific titers may have less robust responses. [employer] uses a multi-analyte immunodetection (MAID) method. The method employs the AngioScore flow cytometric system which measures multiple analytes simultaneously. The FDA standard reference serum 89-S is used as the calibration standard. Results are reported in mcg/mL. This assay detects all of the 23 of the serotypes in the 23-valent polysaccharide vaccine and 12 of the 13 serotypes in the 13-valent conjugate vaccine. This test was developed and its analytical performance characteristics have been determined by [employer]. It has not been cleared or approved by FDA. This assay has been validated pursuant to the CLIA regulations and used for clinical purposes. For additional information, please refer to http://education.iConnect CRM.co m/faq/RDH011 (This link is being provided for informational/ educational purposes only.) STREPTOCOCCUS PNEUMONIAE AB (IGG) (23 SEROTYPES) Reviewed date:07/12/2025 02:04:14 PM Interpretation:Abnormal Performing Lab:SHANIQUA [facility],, [address] [place], [address] Nieves Pandya MD,PhD,DAX Notes/Report: NON-FASTING SEROTYPE 1 (1) 11.9 SEROTYPE 2 (2) 2.0 SEROTYPE 3 (3) 0.5 SEROTYPE 4 (4) <0.3 SEROTYPE 5 (5) 2.9 SEROTYPE 8 (8) 1.6 SEROTYPE 9 (9N) 1.7 SEROTYPE 12 (12F) <0.3 SEROTYPE 14 (14) 0.9 SEROTYPE 17 (17F) 2.4 SEROTYPE 19 (19F) 1.2 SEROTYPE 20 (20) 0.5 SEROTYPE 22 (22F) 0.3 SEROTYPE 23 (23F) <0.3 SEROTYPE 26 (6B) <0.3 SEROTYPE 34 (10A) 0.4 SEROTYPE 43 (11A) 0.9 SEROTYPE 51 (7F) 3.2 SEROTYPE 54 (15B) 0.8 SEROTYPE 56 (18C) 5.7 SEROTYPE 57 (19A) 0.8 SEROTYPE 68 (9V) <0.3 SEROTYPE 70 (33F) 0.7 Serologic correlates of protection against pneumococcal disease have not been rigorously established for all patient populations. Published data and expert consensus (including WHO) suggest protection from invasive disease usually occurs at levels >or =0.3-0.50 mcg/mL for healthy children receiving pneumococcal conjugate vaccines. Higher titers may be necessary to protect from non-invasive infection (e.g., pneumonia, otitis, sinusitis). Expert opinion suggests that a cut-off of >= 1.3 mcg/mL may be a more relevant value to assess antibody responses after pneumococcal polysaccharide vaccines or for immunocompromised patients. In addition to antibody quantity, protection also depends on antibody avidity and opsonophagocytic activity. Some experts consider that post-vaccination (4-6 weeks) IgG seroconversion and/or 2- to 4-fold rise in IgG titers for >50% to 70% of vaccine serotypes demonstrates a normal post-vaccine serologic response. Persons with high initial serotype-specific titers may have less robust responses. [employer] uses a multi-analyte immunodetection (MAID) method. The method employs the AngioScore flow cytometric system which measures multiple analytes simultaneously. The FDA standard reference serum 89-S is used as the calibration standard. Results are reported in mcg/mL. This assay detects all of the 23 of the serotypes in the 23-valent polysaccharide vaccine and 12 of the 13 serotypes in the 13-valent conjugate vaccine. This test was developed and its analytical performance characteristics have been determined by [employer]. It has not been cleared or approved by FDA. This assay has been validated pursuant to the CLIA regulations and used for clinical purposes. For additional information, please refer to http://education.RevolucionaTuPrecio.coms.co m/faq/LUP265 (This link is being provided for informational/ educational purposes only.) Spirometry Reviewed date:07/05/2025 05:36:54 PM Interpretation:Abnormal - FVL Performing Lab: Notes/Report: Abnormal - FVL SpiroPreBronchodilator_FVC 3.32 SpiroPostBronchodilator_FEF 25_75 0 SpiroPreBronchodilator_FEF2 5_75 1.59 SpiroPreBronchodilator_FEV1 2.14 SpiroPrecentPredictionPost_ [id number]_82 0 SpiroPrecentPredictionPost_ FEV1 0 SpiroPrecentPredictionPost_ FEV1_OVER_FVC 0 SpiroPrecentPredictionPost_ FVC 0 SpiroPrecentPredictionPre_F EF25_75 78.3 SpiroPrecentPredictionPre_F EV1 101.9 SpiroPrecentPredictionPre_F EV1_OVER_FVC 82.9 SpiroPrecentPredictionPre_F VC 123 SpiroPredicted_FEF25_75 2.03 SpiroPreBronchodilator_FEV1 _OVER_FVC 64.57 SpiroPreBronchodilator_PEF 3.72 SpiroPostBronchodilator_FVC 0 SpiroPostBronchodilator_FEV 1 0 SpiroPostBronchodilator_FEV 1_OVER_FVC 0 SpiroPostBronchodilator_PEF 0 SpiroPredicted_FVC 2.7 SpiroPredicted_FEV1 2.1 SpiroPredicted_FEV1_OVER_FV C 77.89 SpiroPredicted_PEF 5.31 CARDIO IQ(R) VITAMIN D, 25 H YDROXY Reviewed date:07/14/2025 01:16:45 PM Interpretation:Normal Performing Lab:Z3E, [facility], [facility] [address], [address], [place], [address] Guillermo Love MD,PhD Notes/Report: NON-FASTING VITAMIN D, 25-OH, TOTAL 44 30-100 ng/mL (Note) Vitamin D, 25-Hydroxy reports concentrations of two common forms, 25-OHD2 and 25-OHD3. 25-OHD3 indicates both endogenous production and supplementation. 25-OHD2 is an indicator of exogenous sources such as diet or supplementation. Therapy is based on measurement of Total 25-OHD, with levels <20 ng/mL indicative of Vitamin D deficiency, while levels between 20 ng/mL and 30 ng/mL suggest insufficiency. Optimal levels are > or = 30 ng/mL. For additional information, please refer to http://[email or web address] Bell.DeskActive m/faq/OKU605 (This link is being provided for information/educational purposes only.) VITAMIN D, 25-OH, D3 44 Referen ce range: Not established VITAMIN D, 25-OH, D2 <4.0 (Note) Reference range: Not established This test was developed and its analytical performance characteristics have been determined by [employer]. It has not been cleared or approved by the US Food and Drug Administration. This assay has been validated pursuant to the CLIA regulation and is used for Clinical purposes. MD [facility] [address] [facility] [address] [facility] [address] Guillermo Love MD, PhD See Note 1 Note 1 For additional information, please refer to http://education.Mister Bell.DeskActive m/faq/VOH906 (This link is being provided for informational/ educational purposes only.) Reason For Referral No Information Medications Medication SIG (Take, Route, Frequency, Duration) Notes Start Date End Date Status predniSONE 20 MG 3 tablets Orally Once a day; Duration: 12 days 3 tablets daily x 3 days, 2 tablets daily x 3 days, 1 tablet daily x 3 days, 0.5 tablet daily x 3 days 5 Active EpiPen 2-Anni 0.3 mg as directed intramuscularly once; Duration: 30 days Active Albuterol Sulfate HFA 108 (90 Base) MCG/ACT 1 puff as needed Inhalation every 4 hrs Active Flonase Allergy Rel Childrens 50 MCG/ACT 1 spray in each nostril Nasally Twice a day Active Pantoprazole Sodium 40 MG 1 tablet Orally Once a day Active Gabapentin Active Cetirizine HCl 10 MG 1 tab(s) orally once a day Active Montelukast Sodium 10 MG 1 tab(s) orally once a day Active Prolia 60 MG/ML as directed subcutaneously every 6 months Active Ipratropium Nottingham 0.06 % 2 sprays in each nostril Nasally twice a day; Duration: 30 days Active SIT (TRADITIONAL) variable per schedule SC per schedule; Duration: to be determined Active Tezspire 210 MG/1.91ML as directed Subcutaneous Active CETIRIZINE 10 mg 1 tab(s) orally once a day Active EPIPEN 2-ANNI 0.3 mg as directed intramuscularly once; Duration: 30 days Active Doxycycline Hyclate 100 MG 1 capsule Orally Twice a day; Duration: 7 days Not-Taking Amoxicillin-Pot Clavulanate 875-125 MG 1 tablet Orally twice a day; Duration: 7 days Not-Taking Rosuvastatin Calcium 10 MG 1 tab(s) orally once a day Active Omeprazole 20 MG 1 cap(s) orally once a day; Duration: 30 day(s) Not-Taking Mucinex 600 MG 1 tab(s) orally every 12 hours Active PriLOSEC OTC 20 MG 1 tab(s) orally once a day Not-Taking ONE A DAY WOMEN'S COMPLETE MULTIPLE VITAMINS WITH MINERALS 1 TAB(S) ORALLY ONCE A DAY *Please review for potential replacement for e-prescription and drug interaction check* Active CALTRATE 600 + D 600 mg-20 mcg 1 tab(s) orally 2 times a day Not-Taking Gabapentin 300 MG 1 cap(s) orally 3 times a day takes 300mg at HS and 200mg in AM Active PROZAC 10 mg 1 cap(s) orally once a day Not-Taking Azelastine HCl 137 MCG/SPRAY 2 spray(s) intranasally 2 times a day Active PROzac 10 MG 1 cap(s) orally once a day Not-Taking Trelegy Ellipta 200 MCG-62.5 MCG-25 MCG/INH 1 PUFF(S) INHALED ONCE A DAY *Please review and pick correct strength-formul ation from [employer]Bank options. If intended option is not shown, discontinue and re-order from Quick Search* Active Fasenra Pen 30 MG/ML DIRECTED SUBCUTANEOUSLY EVERY 4 WEEKS X 3 THEN EVERY 8 WEEKS; Duration: 30 DAYS *Please review and pick correct strength-formul ation from [employer] options. If intended option is not shown, discontinue and re-order from Quick Search* Not-Taking amLODIPine Besylate 5 MG Oral; Duration: 90 Days Active Ipratropium-Albuterol 0.5-2.5 (3) MG/3ML 3 mL by nebulizer 4 times a day; Duration: 30 day(s) Active SIT (TRADITIONAL) VARIABLE PER SCHEDULE SC PER SCHEDULE; Duration: TO BE DETERMINED *Please review for potential replacement for e-prescription and drug interaction check* 3 Not-Taking hydroCHLOROthiazide 12.5 MG Oral; Duration: 90 Days Active FLUTICASONE NASAL 50 mcg/inh 1 spray(s) in each nostril once a day Active TRELEGY ELLIPTA 200 mcg-62.5 mcg-25 mcg/inh 1 puff(s) inhaled once a day Active AZELASTINE NASAL 137 mcg/inh 2 spray(s) intranasally 2 times a day Active ALBUTEROL (EQV-PROAIR HFA) 90 mcg/inh 2 puff(s) inhaled every 6 hours Active MONTELUKAST 10 mg 1 tab(s) orally once a day Active PRILOSEC OTC 20 mg 1 tab(s) orally once a day Active AMLODIPINE 5 mg 1 tab(s) orally once a day Active Doxycycline Hyclate 100 MG 1 capsule Orally twice a day; Duration: 7 days 5 Active Immunizations Vaccine Route Administration Date Status Comme nts NOC PedvaxHIB IM Intramuscular 06/26/2024 Administered NOC Prevnar 20 IM Intramuscular 07/18/2025 Administered Social History Tobacco Use: Social History Observation Description Date Details (start date - stop date) Former Smoker NA - NA Sex Assigned At : Social History Observation Description Sex Assigned At Female Smoking Smart Form: Question Answer Notes Are [...] Status Risk Notes Problem Vitamin D deficiency (70273874) Vitamin D deficiency, unspecified (E55.9) Active confirmed Problem Chronic allergic conjunctivitis (18632322) Other chronic allergic conjunctivitis (H10.45) Active confirmed Problem Essential hypertension (71290357) Essential (primary) hypertension (I10) Active confirmed Problem Allergic rhinitis caused by pollen (disorder) (98039071) Allergic rhinitis due to pollen (J30.1) Active confirmed Problem Allergic rhinitis (14344709) Other allergic rhinitis (J30.89) Active confirmed Problem Uncomplicated severe persistent asthma (634259742) Severe persistent asthma, uncomplicated (J45.50) Active confirmed Problem Gastro-esophageal reflux disease without esophagitis (532568858) Gastro-esophageal reflux disease without esophagitis (K21.9) Active confirmed Problem History of pneumonia (466645252) Personal history of pneumonia (recurrent) (Z87.01) Active confirmed Problem Allergic rhinitis caused by animal hair and dander (582010783073784) Allergic rhinitis due to animal (cat) (dog) hair and dander (J30.81) Active confirmed Problem Acute severe exacerbation of severe persistent asthma (589030484) Severe persistent asthma with (acute) exacerbation (J45.51) Active confirmed Problem Pneumonia (647671310) Pneumonia, unspecified organism (J18.9) Active confirmed Problem Malaise (417178330) Other malaise (R53.81) Active confirmed Problem Fatigue (43327002) Other fatigue (R53.83) Active confirmed Problem Abnormal weight gain (972210630) Abnormal weight gain (R63.5) Active confirmed Problem Chronic cough (89422161) Chronic cough (R05.3) Active confirmed Problem Eosinophilic asthma (498292922) Eosinophilic asthma (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.83) Active confirmed Problem Chronic fatigue syndrome (disorder) (39306053) Chronic fatigue, unspecified (R53.82) Active confirmed Vital Signs Respiratory Rate 17 /min 04/05/2025 Blood pressure diastolic 82 mm Hg 10/04/2025 Oximetry 95 % 10/04/2025 Height 62 in 10/04/2025 Blood pressure systolic 142 mm Hg 10/04/2025 Weight 154 lbs 10/04/2025 BMI 28.16 kg/m2 10/04/2025 Encounters Encounter Location Date Provider Diagnosis [facility] [address] [place] [address] [facility] [address] [address] 02/21/2025 Aristeo Rosa Allergic rhinitis du e to pollen J30.1 ; Allergic rhinitis due to animal (cat) (dog) hair and dander J30.81 ; Other allergic rhinitis J30.89 and Other chronic allergic conjunctivitis H10.45 [facility] [address] [place] [address] 12/06/[address] [facility] [address] [address] 09/24/2025 Aristeo Rosa Allergic rhinitis du e to pollen J30.1 ; Allergic rhinitis due to animal (cat) (dog) hair and dander J30.81 ; Other allergic rhinitis J30.89 and Other chronic allergic conjunctivitis H10.45 [facility] [address] [place] [address] [facility] [address] [address] 08/20/2025 Aristeo Rosa Allergic rhinitis du e to pollen J30.1 ; Allergic rhinitis due to animal (cat) (dog) hair and dander J30.81 ; Other allergic rhinitis J30.89 and Other chronic allergic conjunctivitis H10.45 [facility] [address] [place] [address] [facility] [address] [address] 07/17/2025 Aristeo Rosa Allergic rhinitis du e to pollen J30.1 ; Allergic rhinitis due to animal (cat) (dog) hair and dander J30.81 ; Other allergic rhinitis J30.89 and Other chronic allergic conjunctivitis H10.45 [facility] [address] [place] [address] [facility] [address] [address] 06/19/2025 Aristeo Rosa Allergic rhinitis du e to pollen J30.1 ; Allergic rhinitis due to animal (cat) (dog) hair and dander J30.81 ; Other allergic rhinitis J30.89 and Other chronic allergic conjunctivitis H10.45 [facility] [address] [place] [address] [facility] [address] [address] 05/22/2025 Aristeo Rosa Allergic rhinitis du e to pollen J30.1 ; Allergic rhinitis due to animal (cat) (dog) hair and dander J30.81 ; Other allergic rhinitis J30.89 and Other chronic allergic conjunctivitis H10.45 [facility] [address] [place] [address] [facility] [address] [address] 04/24/2025 Aristeo Rosa Allergic rhinitis du e to pollen J30.1 ; Allergic rhinitis due to animal (cat) (dog) hair and dander J30.81 ; Other allergic rhinitis J30.89 and Other chronic allergic conjunctivitis H10.45 [facility] [address] [place] [address] 03/27/2025 Aristeo Rosa Allergic rhinitis du e to pollen J30.1 ; Allergic rhinitis due to animal (cat) (dog) hair and dander J30.81 ; Other allergic rhinitis J30.89 and Other chronic allergic conjunctivitis H10.45 [facility] [address] [place] [address] [facility] [address] [address] 02/26/2025 Aristeo Rosa Allergic rhinitis du e to pollen J30.1 ; Allergic rhinitis due to animal (cat) (dog) hair and dander J30.81 ; Other allergic rhinitis J30.89 and Other chronic allergic conjunctivitis H10.45 [facility] [address] [place] [address] [facility] [address] [address] 01/24/2025 Aristeo Rosa Allergic rhinitis du e to pollen J30.1 ; Allergic rhinitis due to animal (cat) (dog) hair and dander J30.81 ; Other allergic rhinitis J30.89 and Other chronic allergic conjunctivitis H10.45 [facility] [address] [place] [address] [facility] [address] [address] 12/28/2024 Aristeo oRsa Allergic rhinitis du e to pollen J30.1 ; Allergic rhinitis due to animal (cat) (dog) hair and dander J30.81 ; Other allergic rhinitis J30.89 and Other chronic allergic conjunctivitis H10.45 [facility] [address] [place] [address] 12/18/2024 Aristeo Moe Allergic rhinitis du e to pollen J30.1 ; Allergic rhinitis due to animal (cat) (dog) hair and dander J30.81 ; Other allergic rhinitis J30.89 and Other chronic allergic conjunctivitis H10.45 [facility] [address] [place] [address] 12/11/2024 Aristeomalik Rosa Allergic rhinitis du e to pollen J30.1 ; Allergic rhinitis due to animal (cat) (dog) hair and dander J30.81 ; Other allergic rhinitis J30.89 and Other chronic allergic conjunctivitis H10.45 [facility] [address] [place] [address] 11/13/2024 Aristeo Rosa Allergic rhinitis du e to pollen J30.1 ; Allergic rhinitis due to animal (cat) (dog) hair and dander J30.81 ; Other allergic rhinitis J30.89 and Other chronic allergic conjunctivitis H10.45 [facility] [address] [place] [address] 10/04/2025 Anay Allen Severe persistent asthma, uncomplicated J45.50 ; Pneumonia, unspecified organism J18.9 ; Eosinophilic asthma J82.83 ; Personal history of pneumonia (recurrent) Z87.01 ; Vitamin D deficiency, unspecified E55.9 ; Allergic rhinitis due to pollen J30.1 ; Allergic rhinitis due to animal (cat) (dog) hair and dander J30.81 ; Other chronic allergic conjunctivitis H10.45 ; Other allergic rhinitis J30.89 ; Chronic cough R05.3 ; Gastro-esophageal reflux disease without esophagitis K21.9 and Essential (primary) hypertension I10 [facility] [address] [place] [address] 07/05/2025 Anay Allen Severe persistent asthma, uncomplicated J45.50 ; Eosinophilic [...] esophagitis K21.9 and Essential (primary) hypertension I10 [address] [address] 05/03/2025 Aristeo Win [address] [address] 06/07/2025 Aristeo Win Severe persistent asthma, uncomplicated J45.[address] [address] 05/10/2025 Aristeo Win Severe persistent asthma, uncomplicated J45.[address] [address] 04/05/2025 Aristeomalik Rosa Severe persistent asthma, uncomplicated J45.[address] [address] 03/08/2025 Aristeo Moe Severe persistent asthma, uncomplicated J45.[address] [address] 02/07/2025 Aristeo Moe Severe persistent asthma, uncomplicated J45.[address] [address] 08/30/2025 Aristeomalik Rosa Severe persistent asthma, uncomplicated J45.[address] [address] 07/18/2025 Aristeo Rosa Encounter for immunization Z23 [address] [address] 10/30/2024 Jose De Jesus Lozano Severe persistent [...] esophagitis K21.9 and Essential (primary) hypertension I10 [facility] 2022 [facility] [address] [address] 08/02/2025 Aristeo Rosa Severe persistent asthma, uncomplicated J45.50 [facility] [address] [place] [phone] 07/05/2025 Anay Deepnick [facility] [address] [place] [address] 05/21/2025 Anay Deepnick [facility] [address] [place] [address] 05/14/2025 Anay Deepnick [address] [address] 01/03/2025 Jose De Jesus Lozano [address] [address] 11/28/2024 Jose De Jesus Lozano [address] [address] 11/22/2024 Jose De Jesus Lozano [facility] [address] [place] [address] 10/04/2025 Anay Adamenick [facility] [address] [place] [address] 10/10/2025 Anay Allen Personal history of pneumonia (recurrent) Z87.01 [facility] [address] [place] [address] 10/04/2025 Anay Adamenick [facility] [address] [place] [address] 07/18/2025 Anay Allen Personal history of pneumonia (recurrent) Z87.01 [facility] [address] [place] [address] 07/12/2025 Aristeo Rosa Assessments Encounter Date Diagnosis (ICD Code) Assessment Notes Treatment Notes Treatment Clinical Notes Section Notes 10/30/2024 Severe persistent asthma, uncomplicated (ICD-10 - [...] rhinitis due to pollen (ICD-10 - J30.1) 04/05/2025 Severe persistent asthma, uncomplicated (ICD-10 - J45.50) 04/24/2025 Allergic rhinitis due to pollen (ICD-10 - J30.1) 05/10/2025 Severe persistent asthma, uncomplicated (ICD-10 - J45.50) 05/22/2025 Allergic rhinitis due to pollen (ICD-10 - J30.1) 06/19/2025 Allergic rhinitis due to pollen (ICD-10 - J30.1) 06/07/2025 Severe persistent asthma, uncomplicated (ICD-10 - J45.50) 07/05/2025 Severe persistent asthma, uncomplicated (ICD-10 - J45.50) [...] steroids, we elected to transition to Tezspire in 05/2024. Overall feels her symptoms have improved slightly since starting Tezspire. Procedure tolerated today without issue. Denies interval antibiotics nor steroids. Using KIRILL to help her cough up drainage. Still reporting intermittent shortness of breath without cough, wheezing or chest tightness. ACT13, but does feel she is doing well. - Spirometry obtained today showing Supernormal FVC, normal FEV1, reduced FEV% suggesting obstruction. FVL shows variable expiratory flow. Normal lung age. - Continues per GI as I believe reflux is a large contributor to her symptoms. - Continue SCIT as below - Continue medications as listed above. Will trial ipratropium as she reports ongoing PND, requiring KIRILL to cough up. - Continue follow-up per pulmonolgy - slated to see in 08/08/25. Consider CT scan as she denies recent imaging, will defer to pulmonology. - Recommend cardiology workup for ongoing shortness of breath. She has upcoming appointment with PCP and will discuss. - Recommend ENT evaluation due to ongoing PND. - Instructed she must be evaluated by provider every 3 months. - Follow-up in 1 month for Tezspire, 2-3 months for E&M 07/05/2025 Eosinophilic asthma (ICD-10 - J82.83) Treat as above 07/17/2025 Allergic rhinitis due to pollen (ICD-10 - J30.1) 07/18/2025 Encounter for immunization (ICD-10 - Z23) 07/18/2025 Personal history of pneumonia (recurrent) (ICD-10 - Z87.01) 08/02/2025 Severe persistent asthma, uncomplicated (ICD-10 - J45.50) 08/20/2025 Allergic rhinitis due to pollen (ICD-10 - J30.1) 08/30/2025 Severe persistent asthma, uncomplicated (ICD-10 - J45.50) 09/24/2025 Allergic rhinitis due to pollen (ICD-10 - J30.1) 10/04/2025 Severe persistent asthma, uncomplicated (ICD-10 - J45.50) [...] steroids, we elected to transition to Tezspire in 05/2024. Overall feels her symptoms have improved slightly since starting Tezspire. Procedure tolerated today without issue. Using KIRILL to help her cough up drainage. ACT13 today due to recent pneumonia as stated above. - Spirometry obtained last visit showing Supernormal FVC, normal FEV1, reduced FEV% suggesting obstruction. FVL shows variable expiratory flow. Normal lung age. - Continues per GI; reflux may be a contributor to her symptoms. - Continue SCIT as below - Continue medications as listed above. - Continue follow-up per pulmonolgy - evaluated by Dr. Castillo on 08/08/25, will request records and update Dr. Castillo's office of current status. - Consider CT scan as she denies recent imaging, will defer to pulmonology. - Recommend cardiology workup for ongoing shortness of breath. She reports cardiology evaluation that was normal, no records. - Recommend ENT evaluation due to ongoing PND. - Instructed she must be evaluated by provider every 3 months. - Consider change in biologics. - Follow-up in 1 month for Osvaldo Iyer&Shannon 10/04/2025 Pneumonia, unspecified organism (ICD-10 - J18.9) Today, reporting double pneumonia. She was treated with Augmentin and Azithromycin by PCP. Due to ongoing symptoms, she was evaluated by Dr. Valle's office, given 5 days OCS on Wednesday. Reports Chest Xray 2.5 weeks ago. She does believe this is her first antibiotics and OCS since 10/2024. She feels symptoms are better, but still not resolved. - Diffuse coarse breath sounds bilaterally with rhonchi and crackles in bilateral lower lobes. - Will treat with Doxycycline and steroid taper (60mg x 3 days, 40mg x 3 days, 20mg x 3 day and 10mg x 3 days.) Instructions given to patient. - Instructed to seek urgent evaluation for any perisistent or worsening symptoms. - Will contact Dr. Valle's office to update status. 10/10/2025 Personal history of pneumonia (recurrent) (ICD-10 - Z87.01) 10/04/2025 Eosinophilic asthma (ICD-10 - J82.83) Treat as above 09/24/2025 Allergic rhinitis due to animal (cat) (dog) hair and dander (ICD-10 - J30.81) 08/20/2025 Allergic rhinitis due to animal (cat) (dog) hair and dander (ICD-10 - J30.81) 07/17/2025 Allergic rhinitis due to animal (cat) (dog) hair and dander (ICD-10 - J30.81) 07/05/2025 Personal history of pneumonia (recurrent) (ICD-10 - Z87.01) Recently treated for pneumonia with history of needing abx at let least once a year. Last visit in 10/2024 treated with additional antibiotics. Given this, we obtained modified PIDD work-up showing inadequate protection to Hib and S. pneumo. She has since obtained Pneumovax and HiB. Repeat labs show adequate protection to HiB, still inadequate to S. pneumo, though protection did increase from 11/23 to 07/24. Ashlie received Prevnar 20. She has since obtained Pneumovax. No recent titers obtained. No interval antibiotics or OCS since 10/2024. Will obtain repeat titers now. Labs ordered and printed orders given to patient. 06/19/2025 Allergic rhinitis due to animal (cat) (dog) hair and dander (ICD-10 - J30.81) 05/22/2025 Allergic rhinitis due to animal (cat) (dog) hair and dander (ICD-10 - J30.81) 04/24/2025 Allergic rhinitis due to animal (cat) (dog) hair and dander (ICD-10 - J30.81) 03/27/2025 Allergic rhinitis due to animal (cat) [...] hair and dander (ICD-10 - J30.81) 11/13/2024 Other allergic rhinitis (ICD-10 - J30.89) [...] S. pneumo, though protection did increase from 1/23 to 07/24. Ashlie received Prevnar 20. She [...] 03/27/2025 Other allergic rhinitis (ICD-10 - J30.89) 04/24/2025 Other allergic rhinitis (ICD-10 - J30.89) 05/22/2025 Other allergic rhinitis (ICD-10 - J30.89) 06/19/2025 Other allergic rhinitis (ICD-10 - J30.89) 07/05/2025 Vitamin D deficiency, unspecified (ICD-10 - E55.9) Rule out for immune work-up as above 07/17/2025 Other allergic rhinitis (ICD-10 - J30.89) 08/20/2025 Other allergic rhinitis (ICD-10 - J30.89) 09/24/2025 Other allergic rhinitis (ICD-10 - J30.89) 10/04/2025 Personal history of pneumonia (recurrent) (ICD-10 - Z87.01) Recurernt pneumonia as stated above. Episode in 10/2024 requiring additional anitbiotics. Given this, we obtained modified PIDD work-up showing inadequate protection to Hib and S. pneumo. She has since obtained Pneumovax and HiB. Repeat labs show adequate protection to HiB, still inadequate to S. pneumo, though protection did increase from 11/23 to 07/24. Ashlie received Prevnar 20 in 06/2024 and [id number] in 10/2024. Repeat titers in 07/2025 showed 06/23. She received [id number] in 07/2025, but did not have repeat titers obtained. - Symptoms are concerning for SADNI. Instructed Ashlie we need to obtain repeat titers in 3-4 weeks after vaccines as this has not been done. - Will obtain repeat titers now. Labs ordered and printed orders given to patient. 10/04/2025 Vitamin D deficiency, unspecified (ICD-10 - E55.9) Rule out for immune work-up as above 09/24/2025 Other chronic allergic conjunctivitis (ICD-10 - H10.45) 08/20/2025 Other chronic allergic conjunctivitis (ICD-10 - H10.45) 07/17/2025 Other chronic allergic conjunctivitis (ICD-10 - H10.45) 06/19/2025 Other chronic allergic conjunctivitis (ICD-10 - H10.45) 07/05/2025 Allergic rhinitis due to pollen (ICD-10 - J30.1) Ashlie clearly suffers from atopic disease based upon our skin testing today. Accordingly, we have introduced a new, aggressive medication regimen, discussed nasal washes and allergy-specific avoidance measures. Not due for dosing today. Keep AIE on hand 2 hours after SCIT. Continue to premedicate with Zyrtec prior to SCIT. Return per schedule for SCIT - Will trial ipratropium for ongoing PND. 05/22/2025 Other chronic allergic conjunctivitis (ICD-10 - H10.45) 04/24/2025 Other chronic allergic conjunctivitis (ICD-10 - H10.45) 02/21/2025 Other chronic allergic conjunctivitis (ICD-10 - [...] out for immune work-up as above v 10/30/2024 Allergic rhinitis due to pollen [...] SCIT. Return per schedule for SCIT v 07/05/2025 Allergic rhinitis due to animal (cat) (dog) hair and dander (ICD-10 - J30.81) Follow allergen avoidance, meds and continue SCIT as an adjunctive treatment to current regimen. 10/04/2025 Allergic rhinitis due to pollen (ICD-10 - J30.1) Ashlie clearly suffers from atopic disease based upon our skin testing today. Accordingly, we have introduced a new, aggressive medication regimen, discussed nasal washes and allergy-specific avoidance measures. Not due for dosing today. Keep AIE on hand 2 hours after SCIT. Continue to premedicate with Zyrtec prior to SCIT. Return per schedule for SCIT 10/04/2025 Allergic rhinitis due to animal (cat) (dog) hair and dander (ICD-10 - J30.81) Follow allergen avoidance, meds and continue SCIT as an adjunctive treatment to current regimen. 07/05/2025 Other chronic allergic conjunctivitis (ICD-10 - H10.45) Given ocular signs and symptoms I encouraged allergy avoidance measures and meds as above. If symptoms persist, consider adding additional medications including intraocular antihistamine/mast cell stabilizer, PRN and continue SCIT as an adjunctive measure 10/30/2024 Allergic rhinitis due to animal (cat) (dog) hair and dander (ICD-10 - J30.81) Follow allergen avoidance, meds and continue SCIT as an adjunctive treatment to current regimen. v 10/30/2024 Other chronic allergic conjunctivitis (ICD-10 - H10.45) Given ocular signs and symptoms I encouraged allergy avoidance measures and meds as above. If symptoms persist, consider adding additional medications including intraocular antihistamine/mast cell stabilizer, PRN and continue SCIT as an adjunctive measure v 07/05/2025 Other allergic rhinitis (ICD-10 - J30.89) Follow allergen avoidance, meds and continue SCIT as an adjunctive treatment to current regimen 10/04/2025 Other chronic allergic conjunctivitis (ICD-10 - H10.45) Given ocular signs and symptoms I encouraged allergy avoidance measures and meds as above. If symptoms persist, consider adding additional medications including intraocular antihistamine/mast cell stabilizer, PRN and continue SCIT as an adjunctive measure 10/04/2025 Other allergic rhinitis (ICD-10 - J30.89) Follow allergen avoidance, meds and continue SCIT as an adjunctive treatment to current regimen 07/05/2025 Chronic cough (ICD-10 - R05.3) [place] cough is likely multifactorial due to her history of asthma, atopic disease, and GERD. See plan above. 10/30/2024 Other allergic rhinitis (ICD-10 - J30.89) Follow allergen avoidance, meds and continue SCIT as an adjunctive treatment to current regimen v 10/30/2024 Chronic cough (ICD-10 - R05.3) [place] cough is likely multifactorial due to her history of asthma, atopic disease, and GERD. See plan above. v 07/05/2025 Gastro-esophageal reflux disease without esophagitis (ICD-10 - K21.9) Ashlie reports occasional reflux symptoms Now on Protonix. Continue per GI 10/04/2025 Chronic cough (ICD-10 - R05.3) [place] cough is likely multifactorial due to her history of asthma, atopic disease, and GERD. See plan above. 10/04/2025 Gastro-esophageal reflux disease without esophagitis (ICD-10 - K21.9) Ashlie reports occasional reflux symptoms Now on Protonix. Continue per GI 07/05/2025 Essential (primary) hypertension (ICD-10 - I10) BP normal today. Continue serial checks and follow-up with PCP 10/30/2024 Gastro-esophageal reflux disease without esophagitis (ICD-10 - K21.9) Ashlie reports occasional reflux symptoms Now on Protonix. Recently with bx, awaiting results. Continue per GI v 10/30/2024 Essential (primary) hypertension (ICD-10 - I10) BP normal today. Continue serial checks and follow-up with PCP v 10/04/2025 Essential (primary) hypertension (ICD-10 - I10) BP elevated today without symptoms of urgency or emergency. Continue serial checks and follow-up with PCP 07/05/2025 Other 04/05/2025 Other 03/08/2025 Other 03/08/2025 Other v 10/30/2024 Other v 02/07/2025 Other 10/04/2025 Other 08/30/2025 Other 06/07/2025 Other 05/10/2025 Other 08/02/2025 Other Plan Of Treatment Pending Test Test Name Order Date STREPTOCOCCUS PNEUMONIAE IGG AB (23 SERO TYPES) 03/21/2024 STREPTOCOCCUS PNEUMONIAE IGG AB (23 SERO TYPES) 07/05/2025 STREPTOCOCCUS PNEUMONIAE IGG AB (23 SERO TYPES) 10/04/2025 STREPTOCOCCUS PNEUMONIAE IGG AB (23 SERO TYPES) 07/18/2025 DIPHTHERIA ANTITOXOID AND TETANUS ANTITO XOID ANTIBODIES 10/04/2025 TETANUS ANTITOXOID ANTIBODY (EIA) 2023 DIPHTHERIA ANTITOXOID ANTIBODY VITAMIN D, 25-OH, TOTAL, IA 09/12/2024 VITAMIN D, 25-OH, TOTAL, [place] 07/05/2025 VITAMIN D, 25-OH, TOTAL, [place] 10/04/2025 HAEMOPHILUS INFLUENZAE B ANTIBODY, IGG 1 12/05/2024 HAEMOPHILUS INFLUENZAE B ANTIBODY, IGG 0 03/21/2024 HAEMOPHILUS INFLUENZAE B ANTIBODY, IGG 0 06/20/2024 CBC (INCLUDES DIFF/PLT) 02/22/2023 S. PNEUMONIAE IGG AB, 23 SEROTYPES, S Next Appt Details Provider Name:Aristeo Rosa , 10/23/2025 12:30:00 PM, [address], [address], Provider Name:Anay monique, 11/20/2025 12:45:00 PM, [address], [place], [address], Insurance Providers Payer Name Payer Address Payer Phone Subscriber Number Group Number Insured Name Patient Relationship to Insured Coverage Start Date Coverage End Date [employer] [address] [address] [place] [address] [phone] [id number] Ashlie Donald Self - patient is the [...]
--- OUTSIDE RECORDS SUMMARY | 2025-10-18 15:52 | XMS_ITS | Clinical Summary ---
Author Organization [facility] lin Address [address] [place] [address] Care Team Providers Care Director Of Quality Name Role Phone Unavailable Primary Care Provider Unavailabl e Social History Tobacco Use Types Packs/Day Years Used Date Smoking Tobacco: Never Assessed Comments Unknown Sex and Gender Information Value Date Recorded Sex Assigned at Not on file Legal Sex Female 7:48 AM EDT Gender Identity Not on file Sexual Orientation Not on file Plan of Treatment Not on file Medical Devices Not on file Insurance [facility]
== END 2025-10-18 14:56 | disposition home or self-care (01) ==
PROVIDERS: PCP Family Medicine; Visit Provider Physician Assistant Medical
DX: R05.9 Cough, unspecified (principal); J45.909 Unspecified asthma, uncomplicated; J18.9 Pneumonia, unspecified organism
CPT/HCPCS: 71046